=== PATIENT | female | born 1950 | race Caucasian/White ===

== ENCOUNTER → 2018-01-26 07:54 | Outpatient (CLI) | payer MEDICARE, OTHER, SELFPAY ==
[2018-01-26 10:14] LABS: Hemoglobin A1c 6.8 % (4.2-6.3)
== END ==
PROVIDERS: Family Provider Family Medicine; PCP Family Medicine; Visit Provider Family Medicine
DX: E11.9 Type 2 diabetes mellitus without complications (principal)
CPT/HCPCS: 36415; 83036

== ENCOUNTER → 2019-01-19 10:58 | Outpatient (CLI) | payer MEDICARE, OTHER, SELFPAY ==
[2019-01-19 10:30] VITALS: BMI 31.5
[2019-01-19 12:50] LABS: ALB/GLOB Ratio 0.9 RATIO (0.9-2.4); AST(SGOT) 14 U/L (15-37); Alanine Aminotransfer ALT/SGPT 19 U/L (13-56); Albumin, Serum 3.6 g/dL (3.2-5.0); Alkaline Phosphatase 119 U/L (45-117); Anion Gap 8 (5-15); BUN 23 mg/dL (7-18); BUN/Creat Ratio 19.5 RATIO (10-20); Calcium,Total 9.3 mg/dL (8.5-10.1); Chloride 104 mmol/L (98-107); Cholesterol 129 mg/dL (200); Creatinine, Serum 1.18 mg/dL (0.55-1.02); EST Glomerular Filtration Rate 48 mL/min (>60); Est Glom Filt Rate - Afr Amer 58 mL/min (>60); Globulin 3.8 g/dL (2.2-4.2); Glucose 155 mg/dL (74-106); High Density Lipoprotein 42 mg/dL; Protein, Total 7.4 g/dL (6.4-8.2); Sodium Level 139 mmol/L (136-145); Triglycerides 166 mg/dL; Very Low Density Lipoprotein 33 mg/dL (5-40)
== END ==
PROVIDERS: PCP Family Medicine; Visit Provider Family Medicine
DX: I10 Essential (primary) hypertension (principal)
CPT/HCPCS: 36415; 80053; 80061

== ENCOUNTER → 2020-02-25 10:43 | Outpatient (CLI) | payer MEDICARE, OTHER, SELFPAY ==
[2020-02-25 10:12] VITALS: BMI 31.5
[2020-02-25 12:49] LABS: AST(SGOT) 14 U/L (15-37); Alanine Aminotransfer ALT/SGPT 23 U/L (13-56); Alkaline Phosphatase 110 U/L (45-117); Anion Gap 6 (5-15); BUN 18 mg/dL (7-18); BUN/Creat Ratio 15.7 RATIO (10-20); Calcium,Total 9.1 mg/dL (8.5-10.1); Chloride 105 mmol/L (98-107); Cholesterol 161 mg/dL (200); Creatinine, Serum 1.15 mg/dL (0.55-1.02); EST Glomerular Filtration Rate 49 mL/min (>60); Est Glom Filt Rate - Afr Amer 60 mL/min (>60); Globulin 3.9 g/dL (2.2-4.2); Glucose 165 mg/dL (74-106); High Density Lipoprotein 45 mg/dL; Potassium 3.9 mmol/L (3.5-5.1); Protein, Total 7.9 g/dL (6.4-8.2); Sodium Level 137 mmol/L (136-145); Triglycerides 235 mg/dL; Very Low Density Lipoprotein 47 mg/dL (5-40)
[2020-02-25 13:18] LABS: Microalbumin,Random Urine 10.1 mg/L (NO RANGE EST.); Microalbumin:Creatinine Ratio 11.7 mg/g CRE (<30 mg/g CRE)
== END ==
PROVIDERS: PCP Family Medicine; Referring Provider Family Medicine; Visit Provider Family Medicine
DX: E78.5 Hyperlipidemia, unspecified (principal); E11.9 Type 2 diabetes mellitus without complications
CPT/HCPCS: 36415; 80053; 80061; 82043; 82570

== ENCOUNTER → 2021-02-21 11:13 | Outpatient (CLI) | payer MEDICARE, OTHER, SELFPAY ==
[2021-02-21 10:54] VITALS: BMI 31.5
[2021-02-21 12:45] LABS: AST(SGOT) 9 U/L (15-37); Alanine Aminotransfer ALT/SGPT 24 U/L (13-56); Albumin, Serum 3.8 g/dL (3.2-5.0); Alkaline Phosphatase 90 U/L (45-117); Anion Gap 6 (5-15); BUN 24 mg/dL (7-18); BUN/Creat Ratio 21.8 RATIO (10-20); Calcium,Total 9.1 mg/dL (8.5-10.1); Chloride 105 mmol/L (98-107); Cholesterol 139 mg/dL (200); EST Glomerular Filtration Rate 52 mL/min (>60); Est Glom Filt Rate - Afr Amer 63 mL/min (>60); Glucose 148 mg/dL (74-106); High Density Lipoprotein 48 mg/dL; Potassium 3.9 mmol/L (3.5-5.1); Protein, Total 7.8 g/dL (6.4-8.2); Sodium Level 137 mmol/L (136-145); Triglycerides 158 mg/dL; Very Low Density Lipoprotein 32 mg/dL (5-40)
[2021-02-21 12:48] LABS: Microalbumin,Random Urine 8.3 mg/L (NO RANGE EST.); Microalbumin:Creatinine Ratio 10.8 mg/g CRE (<30 mg/g CRE)
== END ==
PROVIDERS: PCP Family Medicine; Referring Provider Family Medicine; Visit Provider Family Medicine
DX: E11.9 Type 2 diabetes mellitus without complications (principal)
CPT/HCPCS: 36415; 80053; 80061; 82043; 82570

== ENCOUNTER → 2022-06-04 | Outpatient (CLI) | payer MEDICARE, OTHER, SELFPAY ==
[2022-06-04 13:32] LABS: AST(SGOT) 18 U/L (15-37); Alanine Aminotransfer ALT/SGPT 32 U/L (13-56); Albumin, Serum 3.8 g/dL (3.2-5.0); Alkaline Phosphatase 98 U/L (45-117); Anion Gap 7 (5-15); BUN 26 mg/dL (7-18); BUN/Creat Ratio 23.6 RATIO (10-20); Chloride 106 mmol/L (98-107); EST Glomerular Filtration Rate 52 mL/min (>60); Est Glom Filt Rate - Afr Amer 63 mL/min (>60); Glucose 142 mg/dL (74-106); Potassium 3.7 mmol/L (3.5-5.1); Protein, Total 7.8 g/dL (6.4-8.2); Sodium Level 140 mmol/L (136-145)
== END | disposition home or self-care (01) ==
LOC: BIMLAB 11:02
PROVIDERS: PCP Family Medicine; Visit Provider Family Medicine
DX: I10 Essential (primary) hypertension (principal)
CPT/HCPCS: 36415; 80053

== ENCOUNTER → 2023-06-11 | Outpatient (CLI) | payer MEDICARE, OTHER, SELFPAY ==
[2023-06-11 12:19] LABS: Absolute Lymphocyte Count 1.53 X10^3/uL (0.83-4.51); Absolute Neutrophil Count 4.9 X10^3/uL (2.0-7.7); Basophil# 0.09 X10^3/uL; Basophil% 1.2 % (0-1); Eosinophil# 0.15 X10^3/uL; Eosinophils% 2.1 % (0-5); Hematocrit 45.3 % (37-47); Hemoglobin 14.5 g/dL (12.0-15.0); Lymphocyte # 1.53 X10^3/ul (0.83-4.51); Lymphocyte % 20.9 % (19-41); Mean Corpuscular Hgb 31.5 pg (27.0-32.0); Mean Corpuscular Volume 98.5 fL (81-99); Mean Platelet Vol. 9.4 fl (6.2-12.0); Monocyte# 0.62 X10^3/uL; Monocyte% 8.5 % (0-10); NRBC Flagged by Analyzer 0 % (0-5); Neutrophil # 4.88 X10^3/uL (2.7-7.7); Neutrophil % 66.8 % (47-70); Platelet Count 353 K/mm3 (150-450); RBC Distribution Width CV 14.1 % (11.6-14.6); RBC Distribution Width SD 50.9 fl (35.1-43.9); White Blood Count 7.3 K/mm3 (4.4-11.0)
[2023-06-11 12:40] LABS: ALB/GLOB Ratio 0.9 RATIO (0.9-2.4); AST(SGOT) 16 U/L (15-37); Alanine Aminotransfer ALT/SGPT 28 U/L (13-56); Albumin, Serum 3.8 g/dL (3.2-5.0); Alkaline Phosphatase 100 U/L (45-117); Anion Gap 7 (5-15); BUN 31 mg/dL (7-18); BUN/Creat Ratio 25.2 RATIO (10-20); Calcium,Total 9.7 mg/dL (8.5-10.1); Chloride 105 mmol/L (98-107); Cholesterol 145 mg/dL (200); Creatinine, Serum 1.23 mg/dL (0.55-1.02); EST Glomerular Filtration Rate 45 mL/min (>60); Est Glom Filt Rate - Afr Amer 55 mL/min (>60); Globulin 4.3 g/dL (2.2-4.2); Glucose 156 mg/dL (74-106); High Density Lipoprotein 57 mg/dL; Potassium 4.2 mmol/L (3.5-5.1); Protein, Total 8.1 g/dL (6.4-8.2); Sodium Level 139 mmol/L (136-145); Triglycerides 179 mg/dL; Very Low Density Lipoprotein 36 mg/dL (5-40)
== END | disposition home or self-care (01) ==
LOC: BIMLAB 11:21
PROVIDERS: PCP Family Medicine; Referring Provider Family Medicine; Visit Provider Family Medicine
DX: I10 Essential (primary) hypertension (principal); E11.9 Type 2 diabetes mellitus without complications
CPT/HCPCS: 36415; 80053; 80061; 85025

== ENCOUNTER → 2024-02-17 | Outpatient (CLI) | payer MEDICARE, OTHER, SELFPAY | END | disposition home or self-care (01) | LOC: LABSPEC 13:41 | PROVIDERS: PCP Family Medicine; Referring Provider Nurse Practitioner; Visit Provider Nurse Practitioner | DX: L72.9 Follicular cyst of the skin and subcutaneous tissue, unspecified (principal) | CPT/HCPCS: 87070; 87077; 87186; 87205 ==

== ENCOUNTER 2024-03-03 09:30 | Outpatient (RCR) | payer MEDICARE, OTHER, SELFPAY ==
[2024-02-25 09:10] VITALS: BP 141/90; PULSE 95; RESP 18; TEMP 36.3
--- NOTE | 2024-02-25 12:00 | HP.PCM_ITS ---
History of Present Illness Date of Service: 02/25/24 Chief Complaint: Follow-up on an open wound on upper mid back History of Wound: 73-year-old white female that had a bump on her back that exploded open on her and she immediately got into her family doctor. The nurse practitioner cleaned it out and has put her on oral antibiotics and suggested she be seen at the wound center. [facility] Medical History Cataract Hyperlipidemia Hypertension Diabetes Home Medications ?Medication ?Instructions ?Recorded ?Last Taken ?Type metformin 500 mg tablet,extended 500 mg PO QDAY #90 tabs 06/11/23 Unknown Rx release 24 hr aspirin 81 mg tablet,delayed 81 mg PO QDAY #90 tabs 08/07/23 Unknown Rx release (Adult Low Dose Aspirin) amlodipine 5 mg tablet 5 mg PO QDAY #90 tabs 12/10/23 Unknown Rx lisinopril 20 1 tab PO QDAY #90 tabs 12/10/23 Unknown Rx mg-hydrochlorothiazide 12.5 mg tablet doxycycline hyclate 100 mg capsule 100 mg PO BID #14 caps 02/17/24 Unknown Rx atorvastatin 20 mg tablet (Lipitor) 20 mg PO QDAY #90 tabs 02/18/24 Unknown Rx Allergy/AdvReac Type Severity Reaction Status Date / Time adhesive tape (adhesives - Allergy Intermediate Rash Verified 02/23/24 13:36 tape) Sulfa (Sulfonamide Allergy Intermediate Hives Verified 02/23/24 13:36 Antibiotics) Family History Father Melanoma Surgical History History of hernia surgery Social History Smoking Status: Never smoker alcohol intake: never substance use type: does not use what type of physical activity do you participate in: none ROS ROS Narrative Patient states her blood sugars are good her hemoglobin A1c is at 6.2 she has just been covering the dressing with a gauze dressing and had a terrible reaction to the tape. Constitutional Constitutional: Reports systems reviewed and no addt'l complaints, except as documented Eyes Eyes: Reports systems reviewed and no addt'l complaints, except as documented ENT HEENT: Reports systems reviewed and no addt'l complaints, except as documented Cardiovascular Cardiovascular: Reports systems reviewed and no addt'l complaints, except as documented Respiratory/Chest Respiratory/Chest: Reports systems reviewed and no addt'l complaints, except as documented Gastrointestinal Gastrointestinal: Reports systems reviewed and no addt'l complaints, except as documented Genitourinary Genitourinary: Reports systems reviewed and no addt'l complaints, except as documented Musculoskeletal Musculoskeletal: Reports systems reviewed and no addt'l complaints, except as documented Integumentary Integumentary: Reports rash, wounds and other Details: Open wound contralateral to the thoracic spine on the right with a very well demarcated Area around the wound from tape and a perfect square formation. Neurologic Neurologic: Reports systems reviewed and no addt'l complaints, except as documented Psychiatric Psychiatric: Reports systems reviewed and no addt'l complaints, except as documented Endocrine Endocrinology: Reports systems reviewed and no addt'l complaints, except as documented Hematologic/Lymphatic Hematologic/Lymphatic: Reports systems reviewed and no addt'l complaints, except as documented Allergic/Immunologic Allergic/Immunologic: Reports systems reviewed and no addt'l complaints, except as documented Vital Signs Vital Signs Vital Signs: 02/25/24 09:10 Temperature 97.3 F L Temperature Source Temporal Pulse Rate 95 Respiratory Rate 18 Blood Pressure 141/90 H Blood Pressure Mean 107 Blood Pressure Source Monitor Blood Pressure Position Sitting Blood Pressure Location Right Arm Physical Exam Const oriented x3 General Appearance: cooperative Exam Limitations: no limitations HEENT normocephalic Eyes General Eye: normal appearance of both eyes Neck full ROM Resp normal respiratory effort Effort and Inspection: able to speak in complete sentences Auscultation: clear to auscultation bilaterally Cardio regular rate and regular rhythm Palpation: normal PMI Rate: regular rate Rhythm: regular rhythm GI Palpation: soft and no hepatosplenomegaly external exam normal Back/Spine Cervical Spine: cervical ROM normal Thoracic Spine / Upper Back: normal to inspection Lumbar Spine / Lower Back: normal to inspection Skin Skin Narrative: Square erythematous area around the wound from tape allergy. Open whole with positive depth and undermining towards the spine on the sebaceous cyst. Neuro oriented x3 Psych Appearance: grossly normal Speech: normal speech Thought Content: normal thought content Judgement: judgement good Debridement Note Debridement Note Wound debrided: Sebaceous cyst open wound Type of Debridement: Excisional debridement Anesthesia Used: 5% Lidocaine Gel Depth: Down to and including healthy tissue and in the subcutaneous layer Percentage of wound debrided: 100 Instrument Used: 5mm curette Severity: Fat Layer Exposed Amount of bleeding with debridement: Mild Bleeding Controlled with: Compression and gauze Patient tolerated procedure: Patient tolerated procedure well Post-Debridement Measurements and Additional Note: Post-Debridement Measurements/Treatment - Nurse 1 - General Ulcer Assessment Start: 02/25/24 09:09 Freq: Status: Active Protocol: INDIO Activity Type Activity Date Activity User E-sign Co-sign Detail Recorded Client Recorded Date Recorded By Document 02/25/24 09:10 [id number] 02/25/24 09:20 PA 02/25/24 09:10 - Today's Visit Information Type of service Initial Visit Arrival Mode Ambulatory Patient Identification Verified (Name & Yes ) Safety Precautions Fall Prevention Vital Signs Temperature (97.8 F-99.1 F) 97.3 F L Temperature Source Temporal Pulse Rate (60-100) 95 Pulse Location Monitor Respiratory Rate (12-18) 18 Respiratory rate source Observation Blood Pressure (90/60-120/80) 141/90 H Blood Pressure Mean 107 Source Monitor Position Sitting Blood Pressure Location Right Arm History Since Last Visit- (Skip if this is Patient's initial visit) Left Footwear Regular Shoe Right Footwear Regular Shoe Pain Scale: 0-10 Numeric Is Patient Pain Free? Yes [facility] Nurse 1 - General Ulcer Measurement Start: 02/25/24 09:09 Freq: Status: Active Protocol: Activity Type Activity Date Activity User E-sign Co-sign Detail Recorded Client Recorded Date Recorded By Document 02/25/24 09:10 [id number] 02/25/24 09:20 PA 02/25/24 09:10 Wound Center Nurse 1 #1 Right med back -Current Size (cm) - Length 1.2 -Current Size (cm) - Width 0.9 -Current Size (cm) - Depth 1.0 -Total Square Cm 1.08 -Date of Last Picture (Recall this 02/25/24 field) -Photo Taken Yes -Undermining/Tunneling Yes -Undermining/Tunneling Starts (O'clock 11 ) -Undermining/Tunneling Ends (O'clock) 11 -Maximum Distance (cm) 3.2 -Exudate Amt Medium -Exudate Type Serosanguineous -Wound Margin Thickened & Rolled Under -Granulation Amt Large (67-100%) -Granulation Quality Pale,[place] -Necrosis Amt Small (1-33%) -Necrotic Tissue Type Adherent Slough -Texture (Concepcion-wound Skin Appearance) Assessed -Moisture (Concepcion-wound Skin Appearance) Assessed -Color (Concepcion-wound Skin Appearance) Assessed -Temperature (Concepcion-wound Skin No Abnormality Appearance) (Pt Warm) -Tenderness on Palpation (Concepcion-wound No Skin Appearance) -Ulcer Cleansing Soap and Water -Foul Odor after Cleansing No -Anesthetic Used 5% Lidocaine Gel Lower Limb Edema Present NA WC - Nurse 2 - General Ulcer CM Notes Start: 02/25/24 09:09 Freq: Status: Active Protocol: Activity Type Activity Date Activity User E-sign Co-sign Detail Recorded Client Recorded Date Recorded By Document 02/25/24 09:27 [facility] [email or web address] 02/25/24 09:36 [facility] 02/25/24 09:27 Wound Center Nurse 2 #1 Right med back -Time 09:28 -Correct Patient Yes -Correct Side, Site, Position Yes -Correct Procedure Yes -Procedure Performed Yes -Type of Procedure Debridement -Clinical Debridement Subcutaneous -Tissue Removed Subcutaneous -Post Debridement (cm) - Length 1.3 -Post Debridement (cm) - Width 0.7 -Post Debridement (cm) - Depth 0.9 -Total Square (Post) (cm) 0.91 -Area of Debridement (cm) - Length 1.3 -Area of Debridement (cm) - Width 0.7 -Total Square (Area) (cm) 0.91 -Tunneling No -Undermining/Tunneling Yes -Undermining/Tunneling Starts (O'clock 9 ) -Undermining/Tunneling Ends (O'clock) 12 -Maximum Distance (cm) 3 -Circular Undermining No -Wound/Ulcer Outcome Not Healed -Ulcer Cleansing Rinsed/ Irrigated with Saline -Foul Odor after Cleansing No -Bioengineered Tissue No -Bleeding Controlled with Pressure -Treatment Response Procedure Tolerated Well -Debridement - Subq, 1st 20sq cm Yes Pain Scale: 0-10 Numeric Is Patient Pain Free? Yes NAILA - Nurse 3 - General Ulcer D/C NN Start: 02/25/24 09:09 Freq: Status: Active Protocol: Activity Type Activity Date Activity User E-sign Co-sign Detail Recorded Client Recorded Date Recorded By Document 02/25/24 09:57 DL [email or web address] 02/25/24 09:59 DL 02/25/24 09:57 [facility] Nurse 3 #1 Right med back -Ulcer Cleansing Rinsed/ Irrigated with Saline -Foul Odor after Cleansing No -Primary Dressing Applied Mepilex Border, Nugauze, Iodoform 1in -Mepilex Border 1 -Nugauze, Iodoform 1in 1 Treatment Response Procedure Tolerated Well Pain Scale: 0-10 Numeric Is Patient Pain Free? Yes WC - Visit Discharge Discharge Condition Stable Ambulatory Status Ambulatory Transportation Private Auto Notes: HH referal Assessment/Plan Assessment/Plan (1) Wound of right side of back: CODE(S): S21.201A - Unspecified open wound of right back wall of thorax without penetration into thoracic cavity, initial encounter QUALIFIERS: Encounter type: initial encounter Qualified Code(s): S21.201A - Unspecified open wound of right back wall of thorax without penetration into thoracic cavity, initial encounter PLAN: Wash as usual and scrub the back area. Then wash again when she comes out pat dry pack with half-inch iodoform gauze and an absorbent XL foam dressing over top Patient is going to try to find a nurse friend to do the dressings daily otherwise we will hire home health to do at least 2 times a week we will do the third time a week and she can have of her friend just do 2 days a week. Patient is to get back to us (2) Infected sebaceous cyst of skin: CODE(S): L72.3 - Sebaceous cyst; L08.9 - Local infection of the skin and subcutaneous tissue, unspecified (3) Nonhealing nonsurgical wound: CODE(S): T14.8XXA - Other injury of unspecified body region, initial encounter
[2024-03-03 09:50] VITALS: BP 142/93; PULSE 98; RESP 18; TEMP 36.2
--- NOTE | 2024-03-03 10:50 | WC ---
PHOTO 02/25/24 (I) RIGHT BACK
--- NOTE | 2024-03-03 11:58 | PCM.WC.PN ---
History of Present Illness Date of Service: 03/03/24 Chief Complaint: Follow-up on an open wound on upper mid back History of Wound: 73-year-old white female that had a bump on her back that exploded open on her and she immediately got into her family doctor. The nurse practitioner cleaned it out and has put her on oral antibiotics and suggested she be seen at the wound center. Progress of Wound: Patient has been packing with 1 inch iodoform gauze because at all she had. The measurements are about the same but cannot switch her up and put her on Aquacel extra strips to be cut and packed and they are moisturized with water. Clean doing well still has a tunneling area underneath the skin. No sign of infection doing well. She does have a nurse that is doing the dressings every day for her. Subjective Subjective Patient is tolerating treatments well and is doing fine with no concerns Objective Data Objective Data The area looks clean no sign of infection gets to hardly any discharge at this point. Will change up on the product and were going to switch her to Aquacel extra strips to pack in there. Vital Signs: Vital Signs Temp Pulse Resp BP 97.2 F L 98 18 142/93 H 03/03/24 09:50 03/03/24 09:50 03/03/24 09:50 03/03/24 09:50 Lab / Micro Data Attestation: I reviewed the patient's lab results. Physical Exam Const oriented x3 General Appearance: cooperative Exam Limitations: no limitations HEENT normocephalic Eyes General Eye: normal appearance of both eyes Neck full ROM Resp normal respiratory effort Effort and Inspection: able to speak in complete sentences Auscultation: clear to auscultation bilaterally Cardio regular rate and regular rhythm Palpation: normal PMI Rate: regular rate Rhythm: regular rhythm GI Palpation: soft and no hepatosplenomegaly external exam normal Back/Spine Cervical Spine: cervical ROM normal Thoracic Spine / Upper Back: normal to inspection Lumbar Spine / Lower Back: normal to inspection Skin Skin Narrative: Square erythematous area around the wound from tape allergy. Open whole with positive depth and undermining towards the spine on the sebaceous cyst. Neuro oriented x3 Psych Appearance: grossly normal Speech: normal speech Thought Content: normal thought content Judgement: judgement good Debridement Note Debridement Note Wound debrided: Sebaceous cyst open wound Type of Debridement: Excisional debridement Anesthesia Used: 5% Lidocaine Gel Depth: Down to and including healthy tissue and in the subcutaneous layer Percentage of wound debrided: 100 Instrument Used: 5mm curette Severity: Fat Layer Exposed Amount of bleeding with debridement: Mild Bleeding Controlled with: Compression and gauze Patient tolerated procedure: Patient tolerated procedure well Post-Debridement Measurements and Additional Note: Post-Debridement Measurements/Treatment NAILA - Nurse 1 - General Ulcer Assessment Start: 02/25/24 09:09 Freq: Status: Active Protocol: INDIO Activity Type Activity Date Activity User E-sign Co-sign Detail Recorded Client Recorded Date Recorded By Document 02/25/24 09:10 MT [id number] 02/25/24 09:20 MT Document 03/03/24 09:50 RB wound 03/03/24 09:52 RB 02/25/24 03/03/24 09:10 09:50 WC - Today's Visit Information Type of service Initial Visit Follow-up Visit (Physician/VALVE REPAIRER RECLAMATION ) Arrival Mode Ambulatory Ambulatory,Cane Transfer Assistance None Patient Identification Verified (Name & Yes Yes ) Patient Requires Transmission-Based No Precautions Safety Precautions Fall Prevention Vital Signs Temperature (97.8 F-99.1 F) 97.3 F L 97.2 F L Temperature Source Temporal Temporal Pulse Rate (60-100) 95 98 Pulse Location Monitor Monitor Respiratory Rate (12-18) 18 18 Respiratory rate source Observation Observation Blood Pressure (90/60-120/80) 141/90 H 142/93 H Blood Pressure Mean (mm Hg) 107 109 Source Monitor Monitor Position Sitting Semi-Fowlers Blood Pressure Location Right Arm Left Arm History Since Last Visit- (Skip if this is Patient's initial visit) Have you changed medications since your No last visit? Any new allergies or adverse reactions No Had a fall/change in ADL's that may No increase risk of falls Signs or symptoms of abuse and/or No neglect since last visit Have you been in the hospital since your No last visit? Has dressing in place as prescribed Yes Has compression in place as prescribed No Has offloadiing in place as prescribed No Experienced any changes in pain level or No management Left Footwear Regular Shoe Right Footwear Regular Shoe Pain Scale: 0-10 Numeric Is Patient Pain Free? Yes Yes NAILA [facility] Nurse 1 - General Ulcer Measurement Start: 02/25/24 09:09 Freq: Status: Active Protocol: Activity Type Activity Date Activity User E-sign Co-sign Detail Recorded Client Recorded Date Recorded By Document 02/25/24 09:10 MT [id number] 02/25/24 09:20 MT Document 03/03/24 09:50 RB wound 03/03/24 09:52 RB 02/25/24 03/03/24 09:10 09:50 Wound Center Nurse 1 #1 Right mid back -Combined with other wound No -Current Size (cm) - Length 1.2 0.8 -Current Size (cm) - Width 0.9 0.7 -Current Size (cm) - Depth 1.0 0.4 -Total Square Cm 1.08 0.56 -Date of Last Picture (Recall this 02/25/24 field) -Photo Taken Yes -Tunneling Yes -Tunneling Position (O'clock) 10 -Tunneling Distance (cm) 3.3 -Undermining/Tunneling Yes No -Undermining/Tunneling Starts (O'clock 11 ) -Undermining/Tunneling Ends (O'clock) 11 -Maximum Distance (cm) 3.2 -Circular Undermining No -Exudate Amt Medium -Exudate Type Serosanguineous -Wound Margin Thickened & Rolled Under -Granulation Amt Large (67-100%) Medium (34-66%) -Granulation Quality Pale,[place] -Slough/Fibrin Yes -Necrosis Amt Small (1-33%) Medium (34-66%) -Necrotic Tissue Type Adherent Slough Adherent Slough -Structure Exposed N/A -Texture (Concepcion-wound Skin Appearance) Assessed Assessed, Scarring -Moisture (Concepcion-wound Skin Appearance) Assessed Assessed -Color (Concepcion-wound Skin Appearance) Assessed Assessed -Temperature (Concepcion-wound Skin No Abnormality No Abnormality Appearance) (Pt Warm) (Pt Warm) -Tenderness on Palpation (Concepcion-wound No No Skin Appearance) -Ulcer Cleansing Soap and Water Wound Cleanser -Foul Odor after Cleansing No No -Anesthetic Used 5% Lidocaine 5% Lidocaine Gel Gel Lower Limb Edema Present NA WC - Nurse 2 - General Ulcer CM Notes Start: 02/25/24 09:09 Freq: Status: Active Protocol: Activity Type Activity Date Activity User E-sign Co-sign Detail Recorded Client Recorded Date Recorded By Document 02/25/24 09:27 [facility] [id number] 02/25/24 09:36 BMF Document 03/03/24 10:04 [facility] ..25.7 03/03/24 10:10 [facility] 02/25/24 03/03/24 09:27 10:04 Wound Center Nurse 2 #1 Right mid back -Time 09:28 10:04 -Correct Patient Yes Yes -Correct Side, Site, Position Yes Yes -Correct Procedure Yes Yes -Procedure Performed Yes Yes -Type of Procedure Debridement Debridement -Clinical Debridement Subcutaneous Subcutaneous -Tissue Removed Subcutaneous Subcutaneous -Post Debridement (cm) - Length 1.3 1.0 -Post Debridement (cm) - Width 0.7 0.7 -Post Debridement (cm) - Depth 0.9 0.5 -Total Square (Post) (cm) 0.91 0.70 -Area of Debridement (cm) - Length 1.3 1.0 -Area of Debridement (cm) - Width 0.7 0.7 -Total Square (Area) (cm) 0.91 0.70 -Tunneling No -Undermining/Tunneling Yes Yes -Undermining/Tunneling Starts (O'clock 9 9 ) -Undermining/Tunneling Ends (O'clock) 12 11 -Maximum Distance (cm) 3 2.7 -Circular Undermining No No -Wound/Ulcer Outcome Not Healed Not Healed -Ulcer Cleansing Rinsed/ Rinsed/ Irrigated with Irrigated with Saline Saline -Foul Odor after Cleansing No No -Bioengineered Tissue No No -Bleeding Controlled with Pressure Pressure -Treatment Response Procedure Procedure Tolerated Well Tolerated Well -Debridement - Subq, 1st 20sq cm Yes Yes Pain Scale: 0-10 Numeric Is Patient Pain Free? Yes Yes - Nurse 3 - General Ulcer D/C NN Start: 02/25/24 09:09 Freq: Status: Active Protocol: Activity Type Activity Date Activity User E-sign Co-sign Detail Recorded Client Recorded Date Recorded By Document 02/25/24 09:57 DL [email or web address] 02/25/24 09:59 DL Document 03/03/24 11:16 RB wound 03/03/24 11:17 RB 02/25/24 03/03/24 09:57 11:16 Wound Care Center Nurse 3 #1 Right mid back -Ulcer Cleansing Rinsed/ Irrigated with Saline -Foul Odor after Cleansing No -Primary Dressing Applied Mepilex Border, Aquacel Extra, Nugauze, Mepilex Border Iodoform 1in -Aquacel Extra 1 -Mepilex Border 1 1 -Nugauze, Iodoform 1in 1 Treatment Response Procedure Procedure Tolerated Well Tolerated Well Pain Scale: 0-10 Numeric Is Patient Pain Free? Yes Yes WC - Visit Discharge Discharge Condition Stable Stable Ambulatory Status Ambulatory Ambulatory Transportation Private Auto Private Auto Medication Reconcilliation completed & No provided to patient/care provider Clinical Summary of Care Provided Yes Notes: referal Assessment/Plan Assessment/Plan (1) Wound of right side of back: CODE(S): S21.201A - Unspecified open wound of right back wall of thorax without penetration into thoracic cavity, initial encounter QUALIFIERS: Encounter type: initial encounter Qualified Code(s): S21.201A - Unspecified open wound of right back wall of thorax without penetration into thoracic cavity, initial encounter PLAN: Wash as usual and scrub the back area. Then wash again when she comes out pat dry pack with half-inch Aquacel extra gauze and an absorbent XL foam dressing over top nurse friend to do the dressings daily Follow-up 1 week (2) Infected sebaceous cyst of skin: CODE(S): L72.3 - Sebaceous cyst; L08.9 - Local infection of the skin and subcutaneous tissue, unspecified (3) Nonhealing nonsurgical wound: CODE(S): T14.8XXA - Other injury of unspecified body region, initial encounter
== END 2024-03-03 23:59 | disposition home or self-care (01) ==
LOC: WC 09:30
PROVIDERS: PCP Family Medicine; Referring Provider Nurse Practitioner; Visit Provider Nurse Practitioner
DX: S21.201A Unspecified open wound of right back wall of thorax without penetration into thoracic cavity, initial encounter (principal); L98.422 Non-pressure chronic ulcer of back with fat layer exposed; E11.9 Type 2 diabetes mellitus without complications; Z79.82 Long term (current) use of aspirin; E78.5 Hyperlipidemia, unspecified; I10 Essential (primary) hypertension; Z79.899 Other long term (current) drug therapy; Z79.84 Long term (current) use of oral hypoglycemic drugs; L72.3 Sebaceous cyst; T14.8XXA Other injury of unspecified body region, initial encounter; Y84.9 Medical procedure, unspecified as the cause of abnormal reaction of the patient, or of later complication, without mention of misadventure at the time of the procedure
CPT/HCPCS: 11042; 99213; G0463

== ENCOUNTER 2024-03-24 09:45 | Outpatient (RCR) | payer MEDICARE, OTHER, SELFPAY ==
[2024-03-04 00:54] VITALS: BP 142/93; PULSE 98; RESP 18; TEMP 36.2
[2024-03-10 10:54] VITALS: BP 147/85; PULSE 78; RESP 18; TEMP 36.5
--- NOTE | 2024-03-10 12:59 | PCM.WC.PN ---
History of Present Illness Date of Service: 03/10/24 Chief Complaint: Follow-up on an open wound on upper mid back History of Wound: 73-year-old white female that had a bump on her back that exploded open on her and she immediately got into her family doctor. The nurse practitioner cleaned it out and has put her on oral antibiotics and suggested she be seen at the wound center. Progress of Wound: So the nurse from that was helping her could not do it for couple of days and she had a standing that was not packing it good enough so the wound is drained a lot of pus this time and increased in size and the undermining. Subjective Subjective Patient is agreeable to plan Objective Data Objective Data Discussed with the nurse it is going to be doing the dressing changes to pack better maybe mcfp through moisturize with water to activated and then repack again with more Aquacel extra. We did obtain cultures we will call with the results Vital Signs: Vital Signs Temp Pulse Resp BP 97.7 F L 78 18 147/85 H 03/10/24 10:54 03/10/24 10:54 03/10/24 10:54 03/10/24 10:54 Lab / Micro Data Attestation: I reviewed the patient's lab results. Physical Exam Const oriented x3 General Appearance: cooperative Exam Limitations: no limitations HEENT normocephalic Eyes General Eye: normal appearance of both eyes Neck full ROM Resp normal respiratory effort Effort and Inspection: able to speak in complete sentences Auscultation: clear to auscultation bilaterally Cardio regular rate and regular rhythm Palpation: normal PMI Rate: regular rate Rhythm: regular rhythm GI Palpation: soft and no hepatosplenomegaly external exam normal Back/Spine Cervical Spine: cervical ROM normal Thoracic Spine / Upper Back: normal to inspection Lumbar Spine / Lower Back: normal to inspection Skin Skin Narrative: Square erythematous area around the wound from tape allergy. Open whole with positive depth and undermining towards the spine on the sebaceous cyst. Neuro oriented x3 Psych Appearance: grossly normal Speech: normal speech Thought Content: normal thought content Judgement: judgement good Debridement Note Debridement Note Wound debrided: Sebaceous cyst open wound Type of Debridement: Excisional debridement Anesthesia Used: 5% Lidocaine Gel Depth: Down to and including healthy tissue and in the subcutaneous layer Percentage of wound debrided: 100 Instrument Used: 5mm curette Severity: Fat Layer Exposed Amount of bleeding with debridement: Mild Bleeding Controlled with: Compression and gauze Patient tolerated procedure: Patient tolerated procedure well Post-Debridement Measurements and Additional Note: Post-Debridement Measurements/Treatment - Nurse 1 - General Ulcer Assessment Start: 03/10/24 10:54 Freq: Status: Active Protocol: INDIO Activity Type Activity Date Activity User E-sign Co-sign Detail Recorded Client Recorded Date Recorded By Document 03/10/24 10:54 DL 10..25.7 03/10/24 11:03 DL 03/10/24 10:54 WC - Today's Visit Information Type of service Follow-up Visit (Physician/COIN BOX INSPECTOR ) Arrival Mode Ambulatory,Cane Transfer Assistance None Patient Identification Verified (Name & Yes ) Patient Requires Transmission-Based No Precautions Vital Signs Temperature (97.8 F-99.1 F) 97.7 F L Temperature Source Temporal Pulse Rate (60-100) 78 Pulse Location Monitor Respiratory Rate (12-18) 18 Respiratory rate source Observation Blood Pressure (90/60-120/80) 147/85 H Blood Pressure Mean (mm Hg) 105 Source Monitor History Since Last Visit- (Skip if this is Patient's initial visit) Have you changed medications since your No last visit? Any new allergies or adverse reactions No Had a fall/change in ADL's that may No increase risk of falls Signs or symptoms of abuse and/or No neglect since last visit Have you been in the hospital since your No last visit? Has dressing in place as prescribed Yes Has compression in place as prescribed N/A Has offloadiing in place as prescribed N/A Experienced any changes in pain level or No management Pain Scale: 0-10 Numeric Is Patient Pain Free? Yes - Nurse 1 - General Ulcer Measurement Start: 03/10/24 10:54 Freq: Status: Active Protocol: Activity Type Activity Date Activity User E-sign Co-sign Detail Recorded Client Recorded Date Recorded By Document 03/10/24 10:54 DL ..25.7 03/10/24 11:03 DL 03/10/24 10:54 Wound Center Nurse 1 #1 Right mid back -Current Size (cm) - Length 0.4 -Current Size (cm) - Width 0.3 -Current Size (cm) - Depth 0.2 -Total Square Cm 0.12 -Photo Taken Yes -Undermining/Tunneling Starts (O'clock 9 ) -Undermining/Tunneling Ends (O'clock) 11 -Maximum Distance (cm) 2.8 -Exudate Amt Medium -Exudate Type Serosanguineous -Wound Margin Distinct, Outline Attached -Granulation Amt Large (67-100%) -Granulation Quality Red -Necrosis Amt Small (1-33%) -Necrotic Tissue Type Adherent Slough -Structure Exposed N/A -Texture (Concepcion-wound Skin Appearance) Scarring -Moisture (Concepcion-wound Skin Appearance) No Abnormality -Color (Concepcion-wound Skin Appearance) No Abnormality -Temperature (Concepcion-wound Skin No Abnormality Appearance) (Pt Warm) -Ulcer Cleansing Soap and Water -Foul Odor after Cleansing No -Anesthetic Used 5% Lidocaine Gel WC - Nurse 2 - General Ulcer CM Notes Start: 03/10/24 10:54 Freq: Status: Active Protocol: Activity Type Activity Date Activity User E-sign Co-sign Detail Recorded Client Recorded Date Recorded By Document 03/10/24 11:22 DS 1 03/10/24 11:23 DS 03/10/24 11:22 Wound Center Nurse 2 -Time 11:15 -Correct Patient Yes -Correct Side, Site, Position Yes -Correct Procedure Yes -Procedure Performed Yes -Type of Procedure Debridement -Clinical Debridement Subcutaneous -Tissue Removed Subcutaneous -Post Debridement (cm) - Length 1.4 -Post Debridement (cm) - Width 0.3 -Post Debridement (cm) - Depth 3.0 -Total Square (Post) (cm) 0.42 -Area of Debridement (cm) - Length 1.4 -Area of Debridement (cm) - Width 0.3 -Total Square (Area) (cm) 0.42 -Tunneling No -Undermining/Tunneling Yes -Undermining/Tunneling Starts (O'clock 10 ) -Undermining/Tunneling Ends (O'clock) 11 -Maximum Distance (cm) 3.0 -Circular Undermining No -Wound/Ulcer Outcome Not Healed -Bleeding Controlled with Pressure -Treatment Response Procedure Tolerated Well -Debridement - Subq, 1st 20sq cm Yes Pain Scale: 0-10 Numeric Is Patient Pain Free? Yes NAILA - Nurse 3 - General Ulcer D/C NN Start: 03/10/24 10:54 Freq: Status: Active Protocol: Activity Type Activity Date Activity User E-sign Co-sign Detail Recorded Client Recorded Date Recorded By Document 03/10/24 12:02 RB woun 03/10/24 12:02 RB 03/10/24 12:02 Wound Care Center Nurse 3 #1 Right mid back -Ulcer Cleansing Rinsed/ Irrigated with Saline -Primary Dressing Applied Aquacel Extra, Mepilex Border -Aquacel Extra 1 -Mepilex Border 1 Treatment Response Procedure Tolerated Well Pain Scale: 0-10 Numeric Is Patient Pain Free? Yes Teaching: Wound Center Dressing Your Wound -Person Taught Patient -Teaching Method Discussion, Demonstration -Response to teaching Verbalize Understanding WC - Visit Discharge Discharge Condition Stable Ambulatory Status Ambulatory,Cane Transportation Private Auto Medication Reconcilliation completed & No provided to patient/care provider Clinical Summary of Care Provided Yes Assessment/Plan Assessment/Plan (1) Wound of right side of back: CODE(S): S21.201A - Unspecified open wound of right back wall of thorax without penetration into thoracic cavity, initial encounter QUALIFIERS: Encounter type: initial encounter Qualified Code(s): S21.201A - Unspecified open wound of right back wall of thorax without penetration into thoracic cavity, initial encounter PLAN: Wash as usual and scrub the back area. Then wash again when she comes out pat dry pack with half-inch Aquacel extra gauze and an absorbent XL foam dressing over top nurse friend to do the dressings daily Follow-up 1 week (2) Infected sebaceous cyst of skin: CODE(S): L72.3 - Sebaceous cyst; L08.9 - Local infection of the skin and subcutaneous tissue, unspecified (3) Nonhealing nonsurgical wound: CODE(S): T14.8XXA - Other injury of unspecified body region, initial encounter
--- NOTE | 2024-03-15 16:16 | WC ---
WOUND CULTURES REVIEWED PER YASIR MCCRAY. N.O. RECEIVED TO START CIPRO 500MG PO BID X 14 DAYS. ALLERGIES REVIEWED. PT UPDATED AND AGREEABLE. RX CALLED TO [facility] IN [place] PER PT PREFERENCE.
[2024-03-24 10:24] VITALS: BP 131/79; PULSE 107; RESP 18; TEMP 36.4
--- NOTE | 2024-03-24 12:49 | PCM.WC.PN ---
History of Present Illness Date of Service: 03/24/24 Chief Complaint: Follow-up on an open wound on upper mid back History of Wound: 73-year-old white female that had a bump on her back that exploded open on her and she immediately got into her family doctor. The nurse practitioner cleaned it out and has put her on oral antibiotics and suggested she be seen at the wound center. Progress of Wound: The right upper back undermining is smaller by half centimeter. Will continue using the Aquacel extra strips moistened underneath the skin packed in there. Patient is continued taking her Cipro although complains that it upsets her stomach terribly but will finish it. I told her it is making a difference and I reassurance was given no odor was noted the skin on the outside is all supple there is no redness Subjective Subjective Patient not doing well on the ciprofloxacin but will try taking it with food Objective Data Objective Data As stated above the measurements are smaller and the antibiotics are making a difference with healing. Vital Signs: Vital Signs Temp Pulse Resp BP 97.5 F L 107 H 18 131/79 H 03/24/24 10:24 03/24/24 10:24 03/24/24 10:24 03/24/24 10:24 Lab / Micro Data Micro: Microbiology 03/10/24 11:20 Wound - Back Gram Stain - Final 03/10/24 11:20 Wound - Back Wound Culture - Final Pseudomonas aeruginosa Proteus mirabilis 03/10/24 11:20 Wound - Back Anaerobic Culture - Final No anaerobic bacteria isolated. Physical Exam Const oriented x3 General Appearance: cooperative Exam Limitations: no limitations HEENT normocephalic Eyes General Eye: normal appearance of both eyes Neck full ROM Resp normal respiratory effort Effort and Inspection: able to speak in complete sentences Auscultation: clear to auscultation bilaterally Cardio regular rate and regular rhythm Palpation: normal PMI Rate: regular rate Rhythm: regular rhythm GI Palpation: soft and no hepatosplenomegaly external exam normal Back/Spine Cervical Spine: cervical ROM normal Thoracic Spine / Upper Back: normal to inspection Lumbar Spine / Lower Back: normal to inspection Skin Skin Narrative: Square erythematous area around the wound from tape allergy. Open whole with positive depth and undermining towards the spine on the sebaceous cyst. Neuro oriented x3 Psych Appearance: grossly normal Speech: normal speech Thought Content: normal thought content Judgement: judgement good Debridement Note Debridement Note Wound debrided: Sebaceous cyst open wound Type of Debridement: Excisional debridement Anesthesia Used: 5% Lidocaine Gel Depth: Down to and including healthy tissue and in the subcutaneous layer Percentage of wound debrided: 100 Instrument Used: 5mm curette Severity: Fat Layer Exposed Amount of bleeding with debridement: Mild Bleeding Controlled with: Compression and gauze Patient tolerated procedure: Patient tolerated procedure well Post-Debridement Measurements and Additional Note: Post-Debridement Measurements/Treatment NAILA - Nurse 1 - General Ulcer Assessment Start: 03/10/24 10:54 Freq: Status: Active Protocol: INDIO Activity Type Activity Date Activity User E-sign Co-sign Detail Recorded Client Recorded Date Recorded By Document 03/10/24 10:54 DL [id number] 03/10/24 11:03 DL Document 03/24/24 10:24 DL [id number] 03/24/24 10:26 DL 03/10/24 03/24/24 10:54 10:24 WC - Today's Visit Information Type of service Follow-up Visit Follow-up Visit (Physician/CAR WASH SUPERVISOR (Physician/CAR WASH SUPERVISOR ) ) Arrival Mode Ambulatory,Cane Ambulatory Transfer Assistance None None Patient Identification Verified (Name & Yes Yes ) Patient Requires Transmission-Based No No Precautions Vital Signs Temperature (97.8 F-99.1 F) 97.7 F L 97.5 F L Temperature Source Temporal Temporal Pulse Rate (60-100) 78 107 H Pulse Location Monitor Monitor Respiratory Rate (12-18) 18 18 Respiratory rate source Observation Observation Blood Pressure (90/60-120/80) 147/85 H 131/79 H Blood Pressure Mean (mm Hg) 105 96 Source Monitor Monitor Position Semi-Fowlers Blood Pressure Location Left Arm History Since Last Visit- (Skip if this is Patient's initial visit) Have you changed medications since your No No last visit? Any new allergies or adverse reactions No No Had a fall/change in ADL's that may No No increase risk of falls Signs or symptoms of abuse and/or No No neglect since last visit Have you been in the hospital since your No No last visit? Has dressing in place as prescribed Yes Yes Has compression in place as prescribed N/A No Has offloadiing in place as prescribed N/A No Experienced any changes in pain level or No No management Pain Scale: 0-10 Numeric Is Patient Pain Free? Yes Yes WC - Nurse 1 - General Ulcer Measurement Start: 03/10/24 10:54 Freq: Status: Active Protocol: Activity Type Activity Date Activity User E-sign Co-sign Detail Recorded Client Recorded Date Recorded By Document 03/10/24 10:54 DL [email or web address] 03/10/24 11:03 DL Document 03/24/24 10:24 DL [id number] 03/24/24 10:26 DL 03/10/24 03/24/24 10:54 10:24 Wound Center Nurse 1 #1 Right mid back -Combined with other wound No -Current Size (cm) - Length 0.4 0.7 -Current Size (cm) - Width 0.3 0.3 -Current Size (cm) - Depth 0.2 0.4 -Total Square Cm 0.12 0.21 -Photo Taken Yes Yes -Tunneling No -Undermining/Tunneling Yes -Undermining/Tunneling Starts (O'clock 9 10 ) -Undermining/Tunneling Ends (O'clock) 11 11 -Maximum Distance (cm) 2.8 2.8 -Circular Undermining Yes -Exudate Amt Medium Medium -Exudate Type Serosanguineous Serosanguineous -Wound Margin Distinct, Thickened & Outline Rolled Under Attached -Granulation Amt Large (67-100%) Medium (34-66%) -Granulation Quality Red [place] -Slough/Fibrin Yes -Necrosis Amt Small (1-33%) Medium (34-66%) -Necrotic Tissue Type Adherent Slough Adherent Slough -Structure Exposed N/A N/A -Texture (Concepcion-wound Skin Appearance) Scarring Assessed -Moisture (Concepcion-wound Skin Appearance) No Abnormality Assessed -Color (Concepcion-wound Skin Appearance) No Abnormality Assessed -Temperature (Concepcion-wound Skin No Abnormality No Abnormality Appearance) (Pt Warm) (Pt Warm) -Tenderness on Palpation (Concepcion-wound No Skin Appearance) -Ulcer Cleansing Soap and Water Wound Cleanser -Foul Odor after Cleansing No No -Anesthetic Used 5% Lidocaine 5% Lidocaine Gel Gel WC - Nurse 2 - General Ulcer CM Notes Start: 03/10/24 10:54 Freq: Status: Active Protocol: Activity Type Activity Date Activity User E-sign Co-sign Detail Recorded Client Recorded Date Recorded By Document 03/10/24 11:22 DS 1 03/10/24 11:23 DS Document 03/24/24 10:33 BM [id number] 03/24/24 10:38 BMF 03/10/24 03/24/24 11:22 10:33 Wound Center Nurse 2 #1 Right mid back -Time 11:15 10:33 -Correct Patient Yes Yes -Correct Side, Site, Position Yes Yes -Correct Procedure Yes Yes -Procedure Performed Yes Yes -Type of Procedure Debridement Debridement -Clinical Debridement Subcutaneous Subcutaneous -Tissue Removed Subcutaneous Subcutaneous -Post Debridement (cm) - Length 1.4 0.1 -Post Debridement (cm) - Width 0.3 1.7 -Post Debridement (cm) - Depth 3.0 0.2 -Total Square (Post) (cm) 0.42 0.17 -Area of Debridement (cm) - Length 1.4 0.1 -Area of Debridement (cm) - Width 0.3 1.7 -Total Square (Area) (cm) 0.42 0.17 -Tunneling No No -Undermining/Tunneling Yes Yes -Undermining/Tunneling Starts (O'clock 10 10 ) -Undermining/Tunneling Ends (O'clock) 11 11 -Maximum Distance (cm) 3.0 2.5 -Circular Undermining No No -Wound/Ulcer Outcome Not Healed Not Healed -Ulcer Cleansing Rinsed/ Irrigated with Saline -Foul Odor after Cleansing Yes, Due to Product Use -Bleeding Controlled with Pressure Pressure -Treatment Response Procedure Procedure Tolerated Well Tolerated Well -Debridement - Subq, 1st 20sq cm Yes Yes Pain Scale: 0-10 Numeric Is Patient Pain Free? Yes Yes WC - Nurse 3 - General Ulcer D/C NN Start: 03/10/24 10:54 Freq: Status: Active Protocol: Activity Type Activity Date Activity User E-sign Co-sign Detail Recorded Client Recorded Date Recorded By Document 03/10/24 12:02 RB woun 03/10/24 12:02 RB Document 03/24/24 10:55 RB [id number] 03/24/24 10:56 RB 03/10/24 03/24/24 12:02 10:55 Wound Care Center Nurse 3 #1 Right mid back -Ulcer Cleansing Rinsed/ Rinsed/ Irrigated with Irrigated with Saline Saline -Primary Dressing Applied Aquacel Extra, Aquacel Extra, Mepilex Border Mepilex Border -Aquacel Extra 1 1 -Mepilex Border 1 1 Treatment Response Procedure Procedure Tolerated Well Tolerated Well Pain Scale: 0-10 Numeric Is Patient Pain Free? Yes Yes Teaching: Wound Center Dressing Your Wound -Person Taught Patient -Teaching Method Discussion, Demonstration -Response to teaching Verbalize Understanding WC - Visit Discharge Discharge Condition Stable Stable Ambulatory Status Ambulatory,Cane Ambulatory Transportation Private Auto Private Auto Medication Reconcilliation completed & No No provided to patient/care provider Clinical Summary of Care Provided Yes Yes Assessment/Plan Assessment/Plan (1) Wound of right side of back: CODE(S): S21.201A - Unspecified open wound of right back wall of thorax without penetration into thoracic cavity, initial encounter QUALIFIERS: Encounter type: initial encounter Qualified Code(s): S21.201A - Unspecified open wound of right back wall of thorax without penetration into thoracic cavity, initial encounter PLAN: Wash as usual and scrub the back area. Then wash again when she comes out pat dry pack with half-inch Aquacel extra gauze moistened as applied and an absorbent XL foam dressing over top nurse friend to do the dressings daily Follow-up 1 week (2) Infected sebaceous cyst of skin: CODE(S): L72.3 - Sebaceous cyst; L08.9 - Local infection of the skin and subcutaneous tissue, unspecified (3) Nonhealing nonsurgical wound: CODE(S): T14.8XXA - Other injury of unspecified body region, initial encounter
--- NOTE | 2024-03-25 14:08 | WC ---
PHOTO 03/24/24 RIGHT MID BACK
== END 2024-04-03 23:59 | disposition home or self-care (01) ==
LOC: WC 09:45
PROVIDERS: PCP Family Medicine; Referring Provider Nurse Practitioner; Visit Provider Nurse Practitioner
DX: T81.89XA Other complications of procedures, not elsewhere classified, initial encounter (principal); L98.425 Non-pressure chronic ulcer of back with muscle involvement without evidence of necrosis; S21.201S Unspecified open wound of right back wall of thorax without penetration into thoracic cavity, sequela; L72.3 Sebaceous cyst; Y83.8 Other surgical procedures as the cause of abnormal reaction of the patient, or of later complication, without mention of misadventure at the time of the procedure; L08.9 Local infection of the skin and subcutaneous tissue, unspecified; Z79.2 Long term (current) use of antibiotics; Z79.82 Long term (current) use of aspirin; Z79.84 Long term (current) use of oral hypoglycemic drugs; Z79.899 Other long term (current) drug therapy
CPT/HCPCS: 11042; 87070; 87075; 87077; 87186; 87205

== ENCOUNTER 2024-04-28 10:15 | Outpatient (RCR) | payer MEDICARE, OTHER, SELFPAY ==
[2024-04-04 00:28] VITALS: BP 142/93; PULSE 98; RESP 18; TEMP 36.2
[2024-04-07 09:08] VITALS: BP 152/89; PULSE 86; RESP 18; TEMP 35.7
--- NOTE | 2024-04-07 12:27 | PCM.WC.PN ---
History of Present Illness Date of Service: 04/07/24 Chief Complaint: Follow-up on an open wound on upper mid back History of Wound: 73-year-old white female that had a bump on her back that exploded open on her and she immediately got into her family doctor. The nurse practitioner cleaned it out and has put her on oral antibiotics and suggested she be seen at the wound center. Progress of Wound: Appears to be at a standstill on her right upper back. Measurements are about the same on the undermining part will do better at debridement and get more bloody show. I feel they are not getting the Aquacel extra moistened enough up inside to do any good. Subjective Subjective Patient is still agreeable with plan of care Objective Data Objective Data Patient is finished her antibiotic for over a week so it is too early to culture for now we will continue using Aquacel extra under the skin more moistened. Vital Signs: Vital Signs Temp Pulse Resp BP 96.2 F L 86 18 152/89 H 04/07/24 09:08 04/07/24 09:08 04/07/24 09:08 04/07/24 09:08 Lab / Micro Data Attestation: I reviewed the patient's lab results. Physical Exam Const oriented x3 General Appearance: cooperative Exam Limitations: no limitations HEENT normocephalic Eyes General Eye: normal appearance of both eyes Neck full ROM Resp normal respiratory effort Effort and Inspection: able to speak in complete sentences Auscultation: clear to auscultation bilaterally Cardio regular rate and regular rhythm Palpation: normal PMI Rate: regular rate Rhythm: regular rhythm GI Palpation: soft and no hepatosplenomegaly external exam normal Back/Spine Cervical Spine: cervical ROM normal Thoracic Spine / Upper Back: normal to inspection Lumbar Spine / Lower Back: normal to inspection Skin Skin Narrative: Square erythematous area around the wound from tape allergy. Open whole with positive depth and undermining towards the spine on the sebaceous cyst. Neuro oriented x3 Psych Appearance: grossly normal Speech: normal speech Thought Content: normal thought content Judgement: judgement good Debridement Note Debridement Note Wound debrided: Sebaceous cyst open wound Type of Debridement: Excisional debridement Anesthesia Used: 5% Lidocaine Gel Depth: Down to and including healthy tissue and in the subcutaneous layer Percentage of wound debrided: 100 Instrument Used: 3mm curette Severity: Fat Layer Exposed Amount of bleeding with debridement: Mild Bleeding Controlled with: Compression and gauze Patient tolerated procedure: Patient tolerated procedure well Post-Debridement Measurements and Additional Note: Post-Debridement Measurements/Treatment NAILA - Nurse 1 - General Ulcer Assessment Start: 04/07/24 09:04 Freq: Status: Active Protocol: INDIO Activity Type Activity Date Activity User E-sign Co-sign Detail Recorded Client Recorded Date Recorded By Document 04/07/24 09:08 JOSE [id number] 04/07/24 09:17 JOSE 04/07/24 09:08 WC - Today's Visit Information Type of service Follow-up Visit (Physician/WILDLIFE BIOSTATION RESEARCH ECOLOGIST ) Arrival Mode Ambulatory Transfer Assistance None Patient Identification Verified (Name & Yes ) Patient Requires Transmission-Based No Precautions Vital Signs Temperature (97.8 F-99.1 F) 96.2 F L Temperature Source Temporal Pulse Rate (60-100) 86 Pulse Location Monitor Respiratory Rate (12-18) 18 Respiratory rate source Observation Blood Pressure (90/60-120/80) 152/89 H Blood Pressure Mean (mm Hg) 110 Source Monitor History Since Last Visit- (Skip if this is Patient's initial visit) Have you changed medications since your No last visit? Any new allergies or adverse reactions No Had a fall/change in ADL's that may No increase risk of falls Signs or symptoms of abuse and/or No neglect since last visit Have you been in the hospital since your No last visit? Has dressing in place as prescribed Yes Has compression in place as prescribed N/A Has offloadiing in place as prescribed Yes Experienced any changes in pain level or No management Pain Scale: 0-10 Numeric Is Patient Pain Free? Yes NAILA - Nurse 1 - General Ulcer Measurement Start: 04/07/24 09:04 Freq: Status: Active Protocol: Activity Type Activity Date Activity User E-sign Co-sign Detail Recorded Client Recorded Date Recorded By Document 04/07/24 09:08 JOSE [id number] 04/07/24 09:17 JOSE 04/07/24 09:08 Wound Center Nurse 1 #1 Right mid back -Current Size (cm) - Length 0.6 -Current Size (cm) - Width 0.2 -Current Size (cm) - Depth 0.2 -Total Square Cm 0.12 -Photo Taken Yes -Undermining/Tunneling Starts (O'clock 10 ) -Undermining/Tunneling Ends (O'clock) 11 -Maximum Distance (cm) 2.4 -Exudate Amt Small -Exudate Type Serosanguineous -Wound Margin Thickened & Rolled Under -Granulation Amt Small (1-33%) -Granulation Quality [place] -Necrosis Amt None Present (0 %) -Structure Exposed N/A -Texture (Concepcion-wound Skin Appearance) Scarring -Moisture (Concepcion-wound Skin Appearance) No Abnormality -Color (Concepcion-wound Skin Appearance) No Abnormality -Temperature (Concepcion-wound Skin No Abnormality Appearance) (Pt Warm) -Tenderness on Palpation (Concepcion-wound No Skin Appearance) -Ulcer Cleansing Soap and Water -Foul Odor after Cleansing No -Anesthetic Used 5% Lidocaine Gel - Nurse 2 - General Ulcer CM Notes Start: 04/07/24 09:04 Freq: Status: Active Protocol: Activity Type Activity Date Activity User E-sign Co-sign Detail Recorded Client Recorded Date Recorded By Document 04/07/24 09:28 [facility] [id number] 04/07/24 09:32 [facility] 04/07/24 09:28 Wound Center Nurse 2 -Time 09:28 -Correct Patient Yes -Correct Side, Site, Position Yes -Correct Procedure Yes -Procedure Performed Yes -Type of Procedure Debridement -Clinical Debridement Subcutaneous -Tissue Removed Subcutaneous -Post Debridement (cm) - Length 1 -Post Debridement (cm) - Width 0.2 -Post Debridement (cm) - Depth 0.1 -Total Square (Post) (cm) 0.2 -Area of Debridement (cm) - Length 1 -Area of Debridement (cm) - Width 0.2 -Total Square (Area) (cm) 0.2 -Tunneling No -Undermining/Tunneling Yes -Undermining/Tunneling Starts (O'clock 10 ) -Undermining/Tunneling Ends (O'clock) 11 -Maximum Distance (cm) 2.5 -Circular Undermining No -Wound/Ulcer Outcome Not Healed -Ulcer Cleansing Rinsed/ Irrigated with Saline -Foul Odor after Cleansing No -Bioengineered Tissue No -Bleeding Controlled with Pressure -Treatment Response Procedure Tolerated Well -Offloading No -Debridement - Subq, 1st 20sq cm Yes Pain Scale: 0-10 Numeric Is Patient Pain Free? Yes - Nurse 3 - General Ulcer D/C NN Start: 04/07/24 09:04 Freq: Status: Active Protocol: Activity Type Activity Date Activity User E-sign Co-sign Detail Recorded Client Recorded Date Recorded By Document 04/07/24 09:35 [facility] [id number] 04/07/24 09:36 [facility] 04/07/24 09:35 Wound Care Center Nurse 3 #1 Right mid back -Ulcer Cleansing Rinsed/ Irrigated with Saline -Foul Odor after Cleansing No -Primary Dressing Applied Aquacel Extra, Mepilex Border -Aquacel Extra 1 -Mepilex Border 1 Treatment Response Procedure Tolerated Well Pain Scale: 0-10 Numeric Is Patient Pain Free? Yes WC - Visit Discharge Discharge Condition Stable Ambulatory Status Ambulatory Transportation Private Auto Accompanied by friend Assessment/Plan Assessment/Plan (1) Wound of right side of back: CODE(S): S21.201A - Unspecified open wound of right back wall of thorax without penetration into thoracic cavity, initial encounter QUALIFIERS: Encounter type: initial encounter Qualified Code(s): S21.201A - Unspecified open wound of right back wall of thorax without penetration into thoracic cavity, initial encounter PLAN: Wash as usual and scrub the back area. Then wash again when she comes out pat dry pack with half-inch Aquacel extra gauze moistened as applied and an absorbent XL foam dressing over top nurse friend to do the dressings daily Follow-up 1 week (2) Infected sebaceous cyst of skin: CODE(S): L72.3 - Sebaceous cyst; L08.9 - Local infection of the skin and subcutaneous tissue, unspecified (3) Nonhealing nonsurgical wound: CODE(S): T14.8XXA - Other injury of unspecified body region, initial encounter
--- NOTE | 2024-04-09 09:04 | WC ---
PHOTO 04/07/24 RIGHT MID BACK
[2024-04-14 10:15] VITALS: BP 143/96; PULSE 112; RESP 16; TEMP 36.4
--- NOTE | 2024-04-14 11:21 | PN.PCM_ITS ---
History of Present Illness Date of Service: 04/14/24 Chief Complaint: Follow-up on an open wound on upper mid back History of Wound: 73-year-old white female that had a bump on her back that exploded open on her and she immediately got into her family doctor. The nurse practitioner cleaned it out and has put her on oral antibiotics and suggested she be seen at the wound center. Progress of Wound: The undermining of the wound is better this week she is down to 0.5 cm. The wound itself is doing well no odor she did not qualify for EpiFix because the wound was not big enough. We will continue packing with the Aquacel extra well and up into the wound to see if we can get that smaller. Again I roughed it up and side made it bleed better and hopefully that will help with healing faster. Subjective Subjective Patient is pleased with better outcomes Objective Data Objective Data No sign of infection we will continue using the Aquacel packing and follow-up weekly Vital Signs: Vital Signs Temp Pulse Resp BP O2 Del Method 97.5 F L 112 H 16 143/96 H Room Air 04/14/24 10:15 04/14/24 10:15 04/14/24 10:15 04/14/24 10:15 04/14/24 10:15 Oxygen Delivery Method Room Air Physical Exam Const oriented x3 General Appearance: cooperative Exam Limitations: no limitations HEENT normocephalic Eyes General Eye: normal appearance of both eyes Neck full ROM Resp normal respiratory effort Effort and Inspection: able to speak in complete sentences Auscultation: clear to auscultation bilaterally Cardio regular rate and regular rhythm Palpation: normal PMI Rate: regular rate Rhythm: regular rhythm GI Palpation: soft and no hepatosplenomegaly external exam normal Back/Spine Cervical Spine: cervical ROM normal Thoracic Spine / Upper Back: normal to inspection Lumbar Spine / Lower Back: normal to inspection Skin Skin Narrative: Square erythematous area around the wound from tape allergy. Open whole with positive depth and undermining towards the spine on the sebaceous cyst. Neuro oriented x3 Psych Appearance: grossly normal Speech: normal speech Thought Content: normal thought content Judgement: judgement good Debridement Note Debridement Note Wound debrided: Sebaceous cyst open wound Type of Debridement: Excisional debridement Anesthesia Used: 5% Lidocaine Gel Depth: Down to and including healthy tissue and in the subcutaneous layer Percentage of wound debrided: 100 Instrument Used: 3mm curette Severity: Fat Layer Exposed Amount of bleeding with debridement: Mild Bleeding Controlled with: Compression and gauze Patient tolerated procedure: Patient tolerated procedure well Post-Debridement Measurements and Additional Note: Post-Debridement Measurements/Treatment NAILA - Nurse 1 - General Ulcer Assessment Start: 04/07/24 09:04 Freq: Status: Active Protocol: INDOI Activity Type Activity Date Activity User E-sign Co-sign Detail Recorded Client Recorded Date Recorded By Document 04/07/24 09:08 DL [id number] 04/07/24 09:17 DL Document 04/14/24 10:15 BMF [id number] 04/14/24 10:21 BMF 04/07/24 04/14/24 09:08 10:15 WC - Today's Visit Information Type of service Follow-up Visit Follow-up Visit (Physician/IRRADIATED FUEL HANDLER (Physician/IRRADIATED FUEL HANDLER ) ) Arrival Mode Ambulatory Ambulatory,Cane Transfer Assistance None Patient Identification Verified (Name & Yes Yes ) Patient Requires Transmission-Based No No Precautions Vital Signs Temperature (97.8 F-99.1 F) 96.2 F L 97.5 F L Temperature Source Temporal Temporal Pulse Rate (60-100) 86 112 H Pulse Location Monitor Monitor Respiratory Rate (12-18) 18 16 Respiratory rate source Observation Observation Oxygen Delivery Method Room Air Blood Pressure (90/60-120/80) 152/89 H 143/96 H Blood Pressure Mean (mm Hg) 110 111 Source Monitor Monitor Position Sitting Blood Pressure Location Left Arm History Since Last Visit- (Skip if this is Patient's initial visit) Have you changed medications since your No No last visit? Any new allergies or adverse reactions No No Had a fall/change in ADL's that may No No increase risk of falls Signs or symptoms of abuse and/or No No neglect since last visit Have you been in the hospital since your No No last visit? Has dressing in place as prescribed Yes Yes Has compression in place as prescribed N/A N/A Has offloadiing in place as prescribed Yes N/A Experienced any changes in pain level or No No management Left Footwear Regular Shoe Right Footwear Regular Shoe Pain Scale: 0-10 Numeric Is Patient Pain Free? Yes Yes NAILA [place] Nurse 1 - General Ulcer Measurement Start: 04/07/24 09:04 Freq: Status: Active Protocol: Activity Type Activity Date Activity User E-sign Co-sign Detail Recorded Client Recorded Date Recorded By Document 04/07/24 09:08 [id number] 04/07/24 09:17 Document 04/14/24 10:15 [id number] 04/14/24 10:21 [facility] 04/07/24 04/14/24 09:08 10:15 Wound Center Nurse 1 #1 Right mid back -Combined with other wound No -Current Size (cm) - Length 0.6 0.6 -Current Size (cm) - Width 0.2 0.3 -Current Size (cm) - Depth 0.2 0.1 -Total Square Cm 0.12 0.18 -Photo Taken Yes -Epithelialization Small 1-33% -Undermining/Tunneling Yes -Undermining/Tunneling Starts (O'clock 10 8 ) -Undermining/Tunneling Ends (O'clock) 11 10 -Maximum Distance (cm) 2.4 2 -Circular Undermining No -Exudate Amt Small Medium -Exudate Type Serosanguineous Sanguineous -Wound Margin Thickened & Distinct, Rolled Under Outline Attached -Granulation Amt Small (1-33%) Large (67-100%) -Granulation Quality [place] -Slough/Fibrin No -Necrosis Amt None Present (0 None Present (0 %) %) -Structure Exposed N/A -Texture (Concepcion-wound Skin Appearance) Scarring Assessed, Scarring -Moisture (Concepcion-wound Skin Appearance) No Abnormality Assessed -Color (Concepcion-wound Skin Appearance) No Abnormality Assessed -Temperature (Concepcion-wound Skin No Abnormality No Abnormality Appearance) (Pt Warm) (Pt Warm) -Tenderness on Palpation (Concepcion-wound No No Skin Appearance) -Ulcer Cleansing Soap and Water Rinsed/ Irrigated with Saline -Foul Odor after Cleansing No No -Anesthetic Used 5% Lidocaine 5% Lidocaine Gel Gel WC - Nurse 2 - General Ulcer CM Notes Start: 04/07/24 09:04 Freq: Status: Active Protocol: Activity Type Activity Date Activity User E-sign Co-sign Detail Recorded Client Recorded Date Recorded By Document 04/07/24 09:28 [facility] [id number] 04/07/24 09:32 [facility] Document 04/14/24 10:45 [facility] [id number] 04/14/24 10:50 [facility] 04/07/24 04/14/24 09:28 10:45 Wound Center Nurse 2 #1 Right mid back -Time : 10:46 -Correct Patient Yes Yes -Correct Side, Site, Position Yes Yes -Correct Procedure Yes Yes -Procedure Performed Yes Yes -Type of Procedure Debridement Debridement -Clinical Debridement Subcutaneous Subcutaneous -Tissue Removed Subcutaneous Subcutaneous -Post Debridement (cm) - Length 1 1.5 -Post Debridement (cm) - Width 0.2 0.1 -Post Debridement (cm) - Depth 0.1 0.2 -Total Square (Post) (cm) 0.2 0.15 -Area of Debridement (cm) - Length 1 1.5 -Area of Debridement (cm) - Width 0.2 0.1 -Total Square (Area) (cm) 0.2 0.15 -Tunneling No No -Undermining/Tunneling Yes Yes -Undermining/Tunneling Starts (O'clock 10 10 ) -Undermining/Tunneling Ends (O'clock) 11 11 -Maximum Distance (cm) 2.5 2.0 -Circular Undermining No No -Wound/Ulcer Outcome Not Healed Not Healed -Ulcer Cleansing Rinsed/ Rinsed/ Irrigated with Irrigated with Saline Saline -Foul Odor after Cleansing No No -Bioengineered Tissue No No -Bleeding Controlled with Pressure Pressure -Treatment Response Procedure Procedure Tolerated Well Tolerated Well -Offloading No -Debridement - Subq, 1st 20sq cm Yes Yes Pain Scale: 0-10 Numeric Is Patient Pain Free? Yes Yes - Nurse 3 - General Ulcer D/C NN Start: 04/07/24 09:04 Freq: Status: Active Protocol: Activity Type Activity Date Activity User E-sign Co-sign Detail Recorded Client Recorded Date Recorded By Document 04/07/24 09:35 [facility] [id number] 04/07/24 09:36 [facility] Document 04/14/24 11:06 DS [id number] 04/14/24 11:07 DS 04/07/24 04/14/24 09:35 11:06 Wound Care Center Nurse 3 #1 Right mid back -Ulcer Cleansing Rinsed/ Rinsed/ Irrigated with Irrigated with Saline Saline -Foul Odor after Cleansing No -Primary Dressing Applied Aquacel Extra, Aquacel Extra, Mepilex Border Mepilex Border -Aquacel Extra 1 1 -Mepilex Border 1 1 Treatment Response Procedure Tolerated Well Pain Scale: 0-10 Numeric Is Patient Pain Free? Yes Yes WC - Visit Discharge Discharge Condition Stable Stable Ambulatory Status Ambulatory Ambulatory,Cane Transportation Private Auto Private Auto Accompanied by friend Medication Reconcilliation completed & Yes provided to patient/care provider Clinical Summary of Care Provided Yes Assessment/Plan Assessment/Plan (1) Wound of right side of back: CODE(S): S21.201A - Unspecified open wound of right back wall of thorax without penetration into thoracic cavity, initial encounter QUALIFIERS: Encounter type: initial encounter Qualified Code(s): S21.201A - Unspecified open wound of right back wall of thorax without penetration into thoracic cavity, initial encounter PLAN: Wash as usual and scrub the back area. Then wash again when she comes out pat dry pack with half-inch Aquacel extra gauze moistened as applied and an absorbent XL foam dressing over top nurse friend to do the dressings daily Follow-up 1 week (2) Infected sebaceous cyst of skin: CODE(S): L72.3 - Sebaceous cyst; L08.9 - Local infection of the skin and subcutaneous tissue, unspecified (3) Nonhealing nonsurgical wound: CODE(S): T14.8XXA - Other injury of unspecified body region, initial encounter
[2024-04-21 10:32] VITALS: BP 149/95; PULSE 89; RESP 14; TEMP 36.5
--- NOTE | 2024-04-21 12:18 | PN.PCM_ITS ---
History of Present Illness Date of Service: 04/21/24 Chief Complaint: Follow-up on an open wound on upper mid back History of Wound: 73-year-old white female that had a bump on her back that exploded open on her and she immediately got into her family doctor. The nurse practitioner cleaned it out and has put her on oral antibiotics and suggested she be seen at the wound center. Progress of Wound: The undermining of the wound is better this week she is down to 0.5 cm. The wound itself is doing well no odor she did not qualify for EpiFix because the wound was not big enough. We will continue packing with the Aquacel extra well and up into the wound to see if we can get that smaller. Again I roughed it up and side made it bleed better and hopefully that will help with healing faster. Subjective Subjective Patient is happy with outcomes Objective Data Objective Data Will continue packing with Aquacel extra and moisturizing it as best she the nurse can and covering with an absorbent dressing Vital Signs: Vital Signs Temp Pulse Resp BP O2 Del Method 97.7 F L 89 14 149/95 H Room Air 04/21/24 10:32 04/21/24 10:32 04/21/24 10:32 04/21/24 10:32 04/14/24 10:15 Oxygen Delivery Method Room Air Lab / Micro Data Attestation: I reviewed the patient's lab results. Physical Exam Const oriented x3 General Appearance: cooperative Exam Limitations: no limitations HEENT normocephalic Eyes General Eye: normal appearance of both eyes Neck full ROM Resp normal respiratory effort Effort and Inspection: able to speak in complete sentences Auscultation: clear to auscultation bilaterally Cardio regular rate and regular rhythm Palpation: normal PMI Rate: regular rate Rhythm: regular rhythm GI Palpation: soft and no hepatosplenomegaly external exam normal Back/Spine Cervical Spine: cervical ROM normal Thoracic Spine / Upper Back: normal to inspection Lumbar Spine / Lower Back: normal to inspection Skin Skin Narrative: Square erythematous area around the wound from tape allergy. Open whole with positive depth and undermining towards the spine on the sebaceous cyst. Neuro oriented x3 Psych Appearance: grossly normal Speech: normal speech Thought Content: normal thought content Judgement: judgement good Debridement Note Debridement Note Wound debrided: Sebaceous cyst open wound Type of Debridement: Excisional debridement Anesthesia Used: 5% Lidocaine Gel Depth: Down to and including healthy tissue and in the subcutaneous layer Percentage of wound debrided: 100 Instrument Used: 3mm curette Severity: Fat Layer Exposed Amount of bleeding with debridement: Mild Bleeding Controlled with: Compression and gauze Patient tolerated procedure: Patient tolerated procedure well Post-Debridement Measurements and Additional Note: Post-Debridement Measurements/Treatment NAILA - Nurse 1 - General Ulcer Assessment Start: 04/07/24 09:04 Freq: Status: Active Protocol: INDIO Activity Type Activity Date Activity User E-sign Co-sign Detail Recorded Client Recorded Date Recorded By Document 04/07/24 09:08 DL [id number] 04/07/24 09:17 DL Document 04/14/24 10:15 BMF [id number] 04/14/24 10:21 BMF Document 04/21/24 10:32 ML [id number] 04/21/24 10:42 ML 04/07/24 04/14/24 04/21/24 09:08 10:15 10:32 NAILA - Today's Visit Information Type of service Follow-up Visit Follow-up Visit Follow-up Visit (Physician/PARTICLEBOARD FACTORY WORKER (Physician/PARTICLEBOARD FACTORY WORKER (Physician/PARTICLEBOARD FACTORY WORKER ) ) ) Arrival Mode Ambulatory Ambulatory,Cane Cane Transfer Assistance None None Patient Identification Verified (Name & Yes Yes Yes ) Patient Requires Transmission-Based No No No Precautions Vital Signs Temperature (97.8 F-99.1 F) 96.2 F L 97.5 F L 97.7 F L Temperature Source Temporal Temporal Temporal Pulse Rate (60-100) 86 112 H 89 Pulse Location Monitor Monitor Monitor Respiratory Rate (12-18) 18 16 14 Respiratory rate source Observation Observation Observation Oxygen Delivery Method Room Air Blood Pressure (90/60-120/80) 152/89 H 143/96 H 149/95 H Blood Pressure Mean (mm Hg) 110 111 113 Source Monitor Monitor Monitor Position Sitting Sitting Blood Pressure Location Left Arm Left Arm History Since Last Visit- (Skip if this is Patient's initial visit) Have you changed medications since your No No No last visit? Any new allergies or adverse reactions No No No Had a fall/change in ADL's that may No No No increase risk of falls Signs or symptoms of abuse and/or No No No neglect since last visit Have you been in the hospital since your No No No last visit? Has dressing in place as prescribed Yes Yes Yes Has compression in place as prescribed N/A N/A N/A Has offloadiing in place as prescribed Yes N/A N/A Experienced any changes in pain level or No No No management Left Footwear Regular Shoe Regular Shoe Right Footwear Regular Shoe Regular Shoe Pain Scale: 0-10 Numeric Is Patient Pain Free? Yes Yes Yes WC - Nurse 1 - General Ulcer Measurement Start: 04/07/24 09:04 Freq: Status: Active Protocol: Activity Type Activity Date Activity User E-sign Co-sign Detail Recorded Client Recorded Date Recorded By Document 04/07/24 09:08 DL [id number] 04/07/24 09:17 DL Document 04/14/24 10:15 BMF [id number] 04/14/24 10:21 BMF Document 04/21/24 10:32 ML [id number] 04/21/24 10:42 ML 04/07/24 04/14/24 04/21/24 09:08 10:15 10:32 Wound Center Nurse 1 #1 Right mid back -Combined with other wound No -Current Size (cm) - Length 0.6 0.6 1 -Current Size (cm) - Width 0.2 0.3 1 -Current Size (cm) - Depth 0.2 0.1 2.5 -Total Square Cm 0.12 0.18 1 -Photo Taken Yes -Epithelialization Small 1-33% Medium 34-66% -Undermining/Tunneling Yes -Undermining/Tunneling Starts (O'clock 10 8 ) -Undermining/Tunneling Ends (O'clock) 11 10 -Maximum Distance (cm) 2.4 2 -Circular Undermining No -Exudate Amt Small Medium Medium -Exudate Type Serosanguineous Sanguineous Serosanguineous -Wound Margin Thickened & Distinct, Distinct, Rolled Under Outline Outline Attached Attached -Granulation Amt Small (1-33%) Large (67-100%) Medium (34-66%) -Granulation Quality [place] -Slough/Fibrin No -Necrosis Amt None Present (0 None Present (0 None Present (0 %) %) %) -Structure Exposed N/A -Texture (Concepcion-wound Skin Appearance) Scarring Assessed, Assessed Scarring -Moisture (Concepcion-wound Skin Appearance) No Abnormality Assessed Assessed -Color (Concepcion-wound Skin Appearance) No Abnormality Assessed Assessed -Temperature ([place]pcion-wound Skin No Abnormality No Abnormality No Abnormality Appearance) (Pt Warm) (Pt Warm) (Pt Warm) -Tenderness on Palpation ([place]pcion-wound No No Skin Appearance) -Ulcer Cleansing Soap and Water Rinsed/ Rinsed/ Irrigated with Irrigated with Saline Saline -Foul Odor after Cleansing No No -Anesthetic Used 5% Lidocaine 5% Lidocaine 5% Lidocaine Gel Gel Gel WC - Nurse 2 - General Ulcer CM Notes Start: 04/07/24 09:04 Freq: Status: Active Protocol: Activity Type Activity Date Activity User E-sign Co-sign Detail Recorded Client Recorded Date Recorded By Document 04/07/24 09:28 [facility] [id number] 04/07/24 09:32 [facility] Document 04/14/24 10:45 [facility] [id number] 04/14/24 10:50 [facility] Document 04/21/24 10:54 [facility] [id number] 04/21/24 10:58 [facility] 04/07/24 04/14/24 04/21/24 09:28 10:45 10:54 Wound Center Nurse 2 #1 Right mid back -Time 09:28 10:46 10:54 -Correct Patient Yes Yes Yes -Correct Side, Site, Position Yes Yes Yes -Correct Procedure Yes Yes Yes -Procedure Performed Yes Yes Yes -Type of Procedure Debridement Debridement Debridement -Clinical Debridement Subcutaneous Subcutaneous Subcutaneous -Tissue Removed Subcutaneous Subcutaneous Subcutaneous -Post Debridement (cm) - Length 1 1.5 1.3 -Post Debridement (cm) - Width 0.2 0.1 0.2 -Post Debridement (cm) - Depth 0.1 0.2 0.2 -Total Square (Post) (cm) 0.2 0.15 0.26 -Area of Debridement (cm) - Length 1 1.5 1.3 -Area of Debridement (cm) - Width 0.2 0.1 0.2 -Total Square (Area) (cm) 0.2 0.15 0.26 -Tunneling No No No -Undermining/Tunneling Yes Yes Yes -Undermining/Tunneling Starts (O'clock 10 10 10 ) -Undermining/Tunneling Ends (O'clock) 11 11 11 -Maximum Distance (cm) 2.5 2.0 2.4 -Circular Undermining No No No -Wound/Ulcer Outcome Not Healed Not Healed Not Healed -Ulcer Cleansing Rinsed/ Rinsed/ Rinsed/ Irrigated with Irrigated with Irrigated with Saline Saline Saline -Foul Odor after Cleansing No No No -Bioengineered Tissue No No No -Bleeding Controlled with Pressure Pressure Pressure -Treatment Response Procedure Procedure Procedure Tolerated Well Tolerated Well Tolerated Well -Offloading No -Debridement - Subq, 1st 20sq cm Yes Yes Yes Pain Scale: 0-10 Numeric Is Patient Pain Free? Yes Yes Yes - Nurse 3 - General Ulcer D/C NN Start: 04/07/24 09:04 Freq: Status: Active Protocol: Activity Type Activity Date Activity User E-sign Co-sign Detail Recorded Client Recorded Date Recorded By Document 04/07/24 09:35 BMF [id number] 04/07/24 09:36 BMF Document 04/14/24 11:06 DS [id number] 04/14/24 11:07 DS Document 04/21/24 11:02 DL [id number] 04/21/24 11:08 DL 04/07/24 04/14/24 04/21/24 09:35 11:06 11:02 Wound Care Center Nurse 3 #1 Right mid back -Ulcer Cleansing Rinsed/ Rinsed/ Rinsed/ Irrigated with Irrigated with Irrigated with Saline Saline Saline -Foul Odor after Cleansing No No -Primary Dressing Applied Aquacel Extra, Aquacel Extra, Aquacel Extra, Mepilex Border Mepilex Border Mepilex Border -Aquacel Extra 1 1 1 -Mepilex Border 1 1 1 Treatment Response Procedure Procedure Tolerated Well Tolerated Well Pain Scale: 0-10 Numeric Is Patient Pain Free? Yes Yes Yes - Visit Discharge Discharge Condition Stable Stable Stable Ambulatory Status Ambulatory Ambulatory,Cane Ambulatory,Cane Transportation Private Auto Private Auto Accompanied by friend Medication Reconcilliation completed & Yes provided to patient/care provider Clinical Summary of Care Provided Yes Assessment/Plan Assessment/Plan (1) Wound of right side of back: CODE(S): S21.201A - Unspecified open wound of right back wall of thorax without penetration into thoracic cavity, initial encounter QUALIFIERS: Encounter type: initial encounter Qualified Code(s): S21.201A - Unspecified open wound of right back wall of thorax without penetration into thoracic cavity, initial encounter PLAN: Wash as usual and scrub the back area. Then wash again when she comes out pat dry pack with half-inch Aquacel extra gauze moistened as applied and an absorbent XL foam dressing over top nurse friend to do the dressings daily Follow-up 1 week (2) Infected sebaceous cyst of skin: CODE(S): L72.3 - Sebaceous cyst; L08.9 - Local infection of the skin and subcutaneous tissue, unspecified (3) Nonhealing nonsurgical wound: CODE(S): T14.8XXA - Other injury of unspecified body region, initial encounter
[2024-04-28 10:41] VITALS: BP 160/88; PULSE 89; RESP 18; TEMP 36.3
--- NOTE | 2024-04-28 12:06 | PCM.WC.PN ---
History of Present Illness Date of Service: 04/28/24 Chief Complaint: Follow-up on an open wound on upper mid back History of Wound: 73-year-old white female that had a bump on her back that exploded open on her and she immediately got into her family doctor. The nurse practitioner cleaned it out and has put her on oral antibiotics and suggested she be seen at the wound center. Progress of Wound: The undermining of the wound is better this week she is down to 0.5 cm. The wound itself is doing well no odor she did not qualify for EpiFix because the wound was not big enough. We will continue packing with the Aquacel extra well and up into the wound to see if we can get that smaller. Again I roughed it up and side made it bleed better and hopefully that will help with healing faster. Subjective Subjective Patient request to go 2 weeks Objective Data Objective Data The area is much smaller she is got about a 10-2 area that is much smaller than what it was still having a hard time understanding the nurse that is helping her she has difficult time with packing but I keep reiterating she needs to pack it as far she can up there and then moisten it because that is what activates it. Vital Signs: Vital Signs Temp Pulse Resp BP O2 Del Method 97.3 F L 89 18 160/88 H Room Air 04/28/24 10:41 04/28/24 10:41 04/28/24 10:41 04/28/24 10:41 04/14/24 10:15 Oxygen Delivery Method Room Air Lab / Micro Data Attestation: I reviewed the patient's lab results. Physical Exam Const oriented x3 General Appearance: cooperative Exam Limitations: no limitations HEENT normocephalic Eyes General Eye: normal appearance of both eyes Neck full ROM Resp normal respiratory effort Effort and Inspection: able to speak in complete sentences Auscultation: clear to auscultation bilaterally Cardio regular rate and regular rhythm Palpation: normal PMI Rate: regular rate Rhythm: regular rhythm GI Palpation: soft and no hepatosplenomegaly external exam normal Back/Spine Cervical Spine: cervical ROM normal Thoracic Spine / Upper Back: normal to inspection Lumbar Spine / Lower Back: normal to inspection Skin Skin Narrative: Square erythematous area around the wound from tape allergy. Open whole with positive depth and undermining towards the spine on the sebaceous cyst. Neuro oriented x3 Psych Appearance: grossly normal Speech: normal speech Thought Content: normal thought content Judgement: judgement good Debridement Note Debridement Note Wound debrided: Sebaceous cyst open wound Type of Debridement: Excisional debridement Anesthesia Used: 5% Lidocaine Gel Depth: Down to and including healthy tissue and in the subcutaneous layer Percentage of wound debrided: 100 Instrument Used: 3mm curette Severity: Fat Layer Exposed Amount of bleeding with debridement: Mild Bleeding Controlled with: Compression and gauze Patient tolerated procedure: Patient tolerated procedure well Post-Debridement Measurements and Additional Note: Post-Debridement Measurements/Treatment - Nurse 1 - General Ulcer Assessment Start: 04/07/24 09:04 Freq: Status: Active Protocol: NAILATuniiRUDDY Activity Type Activity Date Activity User E-sign Co-sign Detail Recorded Client Recorded Date Recorded By Document 04/07/24 09:08 DL [id number] 04/07/24 09:17 DL Document 04/14/24 10:15 BMF [id number] 04/14/24 10:21 BMF Document 04/21/24 10:32 ML [id number] 04/21/24 10:42 ML Document 04/28/24 10:41 RB [id number] 04/28/24 10:45 RB 04/07/24 04/14/24 04/21/24 09:08 10:15 10:32 - Today's Visit Information Type of service Follow-up Visit Follow-up Visit Follow-up Visit (Physician/ELECTRICIAN CONSTRUCTOR SUPERVISOR (Physician/ELECTRICIAN CONSTRUCTOR SUPERVISOR (Physician/ELECTRICIAN CONSTRUCTOR SUPERVISOR ) ) ) Arrival Mode Ambulatory Ambulatory,Cane Cane Transfer Assistance None None Patient Identification Verified (Name & Yes Yes Yes ) Patient Requires Transmission-Based No No No Precautions Vital Signs Temperature (97.8 F-99.1 F) 96.2 F L 97.5 F L 97.7 F L Temperature Source Temporal Temporal Temporal Pulse Rate (60-100) 86 112 H 89 Pulse Location Monitor Monitor Monitor Respiratory Rate (12-18) 18 16 14 Respiratory rate source Observation Observation Observation Oxygen Delivery Method Room Air Blood Pressure (90/60-120/80) 152/89 H 143/96 H 149/95 H Blood Pressure Mean (mm Hg) 110 111 113 Source Monitor Monitor Monitor Position Sitting Sitting Blood Pressure Location Left Arm Left Arm History Since Last Visit- (Skip if this is Patient's initial visit) Have you changed medications since your No No No last visit? Any new allergies or adverse reactions No No No Had a fall/change in ADL's that may No No No increase risk of falls Signs or symptoms of abuse and/or No No No neglect since last visit Have you been in the hospital since your No No No last visit? Has dressing in place as prescribed Yes Yes Yes Has compression in place as prescribed N/A N/A N/A Has offloadiing in place as prescribed Yes N/A N/A Experienced any changes in pain level or No No No management Left Footwear Regular Shoe Regular Shoe Right Footwear Regular Shoe Regular Shoe Pain Scale: 0-10 Numeric Is Patient Pain Free? Yes Yes Yes 04/28/24 10:41 WC - Today's Visit Information Type of service Follow-up Visit (Physician/ELECTRICIAN CONSTRUCTOR SUPERVISOR ) Arrival Mode Ambulatory Transfer Assistance None Patient Identification Verified (Name & Yes ) Patient Requires Transmission-Based No Precautions Vital Signs Temperature (97.8 F-99.1 F) 97.3 F L Temperature Source Temporal Pulse Rate (60-100) 89 Pulse Location Monitor Respiratory Rate (12-18) 18 Respiratory rate source Observation Oxygen Delivery Method Blood Pressure (90/60-120/80) 160/88 H Blood Pressure Mean (mm Hg) 112 Source Monitor Position Sitting Blood Pressure Location Left Arm History Since Last Visit- (Skip if this is Patient's initial visit) Have you changed medications since your No last visit? Any new allergies or adverse reactions No Had a fall/change in ADL's that may No increase risk of falls Signs or symptoms of abuse and/or No neglect since last visit Have you been in the hospital since your No last visit? Has dressing in place as prescribed Yes Has compression in place as prescribed No Has offloadiing in place as prescribed No Experienced any changes in pain level or No management Left Footwear Right Footwear Pain Scale: 0-10 Numeric Is Patient Pain Free? Yes - Nurse 1 - General Ulcer Measurement Start: 04/07/24 09:04 Freq: Status: Active Protocol: Activity Type Activity Date Activity User E-sign Co-sign Detail Recorded Client Recorded Date Recorded By Document 04/07/24 09:08 DL [id number] 04/07/24 09:17 DL Document 04/14/24 10:15 BMF [id number] 04/14/24 10:21 BMF Document 04/21/24 10:32 ML [id number] 04/21/24 10:42 ML Document 04/28/24 10:41 RB [id number] 04/28/24 10:45 RB 04/07/24 04/14/24 04/21/24 09:08 10:15 10:32 Wound Center Nurse 1 #1 Right mid back -Combined with other wound No -Current Size (cm) - Length 0.6 0.6 1 -Current Size (cm) - Width 0.2 0.3 1 -Current Size (cm) - Depth 0.2 0.1 2.5 -Total Square Cm 0.12 0.18 1 -Photo Taken Yes -Epithelialization Small 1-33% Medium 34-66% -Tunneling -Tunneling Position (O'clock) -Tunneling Distance (cm) -Undermining/Tunneling Yes -Undermining/Tunneling Starts (O'clock 10 8 ) -Undermining/Tunneling Ends (O'clock) 11 10 -Maximum Distance (cm) 2.4 2 -Circular Undermining No -Exudate Amt Small Medium Medium -Exudate Type Serosanguineous Sanguineous Serosanguineous -Wound Margin Thickened & Distinct, Distinct, Rolled Under Outline Outline Attached Attached -Granulation Amt Small (1-33%) Large (67-100%) Medium (34-66%) -Granulation Quality [place] Red [place]doch -Slough/Fibrin No -Necrosis Amt None Present (0 None Present (0 None Present (0 %) %) %) -Necrotic Tissue Type -Structure Exposed N/A -Texture (Concepcion-wound Skin Appearance) Scarring Assessed, Assessed Scarring -Moisture (Concepcion-wound Skin Appearance) No Abnormality Assessed Assessed -Color (Concepcion-wound Skin Appearance) No Abnormality Assessed Assessed -Temperature (Concepcion-wound Skin No Abnormality No Abnormality No Abnormality Appearance) (Pt Warm) (Pt Warm) (Pt Warm) -Tenderness on Palpation (Concepcion-wound No No Skin Appearance) -Ulcer Cleansing Soap and Water Rinsed/ Rinsed/ Irrigated with Irrigated with Saline Saline -Foul Odor after Cleansing No No -Anesthetic Used 5% Lidocaine 5% Lidocaine 5% Lidocaine Gel Gel Gel 04/28/24 10:41 Wound Center Nurse 1 #1 Right mid back -Combined with other wound No -Current Size (cm) - Length 0.7 -Current Size (cm) - Width 0.2 -Current Size (cm) - Depth 0.2 -Total Square Cm 0.14 -Photo Taken Yes -Epithelialization -Tunneling Yes -Tunneling Position (O'clock) 10 -Tunneling Distance (cm) 2.5 -Undermining/Tunneling No -Undermining/Tunneling Starts (O'clock ) -Undermining/Tunneling Ends (O'clock) -Maximum Distance (cm) -Circular Undermining No -Exudate Amt Medium -Exudate Type Serosanguineous -Wound Margin Thickened & Rolled Under -Granulation Amt Medium (34-66%) -Granulation Quality [place] -Slough/Fibrin Yes -Necrosis Amt Medium (34-66%) -Necrotic Tissue Type Adherent Slough -Structure Exposed N/A -Texture (Concepcion-wound Skin Appearance) Assessed, Scarring -Moisture (Concepcion-wound Skin Appearance) Assessed -Color (Concepcion-wound Skin Appearance) Assessed -Temperature (Concepcion-wound Skin No Abnormality Appearance) (Pt Warm) -Tenderness on Palpation (Concepcion-wound No Skin Appearance) -Ulcer Cleansing Wound Cleanser -Foul Odor after Cleansing No -Anesthetic Used 5% Lidocaine Gel WC - Nurse 2 - General Ulcer CM Notes Start: 04/07/24 09:04 Freq: Status: Active Protocol: Activity Type Activity Date Activity User E-sign Co-sign Detail Recorded Client Recorded Date Recorded By Document 04/07/24 09:28 [facility] [id number] 04/07/24 09:32 [facility] Document 04/14/24 10:45 [facility] [id number] 04/14/24 10:50 [facility] Document 04/21/24 10:54 [facility] [id number] 04/21/24 10:58 [facility] Document 04/28/24 11:10 [facility] [id number] 04/28/24 11:13 [facility] 04/07/24 04/14/24 04/21/24 09:28 10:45 10:54 Wound Center Nurse 2 #1 Right mid back -Time 09:28 10:46 10:54 -Correct Patient Yes Yes Yes -Correct Side, Site, Position Yes Yes Yes -Correct Procedure Yes Yes Yes -Procedure Performed Yes Yes Yes -Type of Procedure Debridement Debridement Debridement -Clinical Debridement Subcutaneous Subcutaneous Subcutaneous -Tissue Removed Subcutaneous Subcutaneous Subcutaneous -Post Debridement (cm) - Length 1 1.5 1.3 -Post Debridement (cm) - Width 0.2 0.1 0.2 -Post Debridement (cm) - Depth 0.1 0.2 0.2 -Total Square (Post) (cm) 0.2 0.15 0.26 -Area of Debridement (cm) - Length 1 1.5 1.3 -Area of Debridement (cm) - Width 0.2 0.1 0.2 -Total Square (Area) (cm) 0.2 0.15 0.26 -Tunneling No No No -Tunneling Position (O'clock) -Tunneling Distance (cm) -Undermining/Tunneling Yes Yes Yes -Undermining/Tunneling Starts (O'clock 10 10 10 ) -Undermining/Tunneling Ends (O'clock) 11 11 11 -Maximum Distance (cm) 2.5 2.0 2.4 -Circular Undermining No No No -Wound/Ulcer Outcome Not Healed Not Healed Not Healed -Ulcer Cleansing Rinsed/ Rinsed/ Rinsed/ Irrigated with Irrigated with Irrigated with Saline Saline Saline -Foul Odor after Cleansing No No No -Bioengineered Tissue No No No -Bleeding Controlled with Pressure Pressure Pressure -Treatment Response Procedure Procedure Procedure Tolerated Well Tolerated Well Tolerated Well -Offloading No -Debridement - Subq, 1st 20sq cm Yes Yes Yes Pain Scale: 0-10 Numeric Is Patient Pain Free? Yes Yes Yes 04/28/24 11:10 Wound Center Nurse 2 #1 Right mid back -Time 11:11 -Correct Patient Yes -Correct Side, Site, Position Yes -Correct Procedure Yes -Procedure Performed Yes -Type of Procedure Debridement -Clinical Debridement Subcutaneous -Tissue Removed Subcutaneous -Post Debridement (cm) - Length 0.8 -Post Debridement (cm) - Width 0.1 -Post Debridement (cm) - Depth 0.1 -Total Square (Post) (cm) 0.08 -Area of Debridement (cm) - Length 0.8 -Area of Debridement (cm) - Width 0.1 -Total Square (Area) (cm) 0.08 -Tunneling Yes -Tunneling Position (O'clock) 10 -Tunneling Distance (cm) 1.8 -Undermining/Tunneling No -Undermining/Tunneling Starts (O'clock ) -Undermining/Tunneling Ends (O'clock) -Maximum Distance (cm) -Circular Undermining No -Wound/Ulcer Outcome Not Healed -Ulcer Cleansing Rinsed/ Irrigated with Saline -Foul Odor after Cleansing No -Bioengineered Tissue No -Bleeding Controlled with Pressure -Treatment Response Procedure Tolerated Well -Offloading -Debridement - Subq, 1st 20sq cm Yes Pain Scale: 0-10 Numeric Is Patient Pain Free? Yes - Nurse 3 - General Ulcer D/C NN Start: 04/07/24 09:04 Freq: Status: Active Protocol: Activity Type Activity Date Activity User E-sign Co-sign Detail Recorded Client Recorded Date Recorded By Document 04/07/24 09:35 BMF [id number] 04/07/24 09:36 BMF Document 04/14/24 11:06 DS [id number] 04/14/24 11:07 DS Document 04/21/24 11:02 DL [id number] 04/21/24 11:08 DL Document 04/28/24 11:35 RB [id number] 04/28/24 11:35 RB 04/07/24 04/14/24 04/21/24 09:35 11:06 11:02 Wound Care Center Nurse 3 #1 Right mid back -Ulcer Cleansing Rinsed/ Rinsed/ Rinsed/ Irrigated with Irrigated with Irrigated with Saline Saline Saline -Foul Odor after Cleansing No No -Primary Dressing Applied Aquacel Extra, Aquacel Extra, Aquacel Extra, Mepilex Border Mepilex Border Mepilex Border -Aquacel Extra 1 1 1 -Mepilex Border 1 1 1 Treatment Response Procedure Procedure Tolerated Well Tolerated Well Pain Scale: 0-10 Numeric Is Patient Pain Free? Yes Yes Yes WC - Visit Discharge Discharge Condition Stable Stable Stable Ambulatory Status Ambulatory Ambulatory,Cane Ambulatory,Cane Transportation Private Auto Private Auto Accompanied by friend Medication Reconcilliation completed & Yes provided to patient/care provider Clinical Summary of Care Provided Yes 04/28/24 11:35 Wound Care Center Nurse 3 #1 Right mid back -Ulcer Cleansing Rinsed/ Irrigated with Saline -Foul Odor after Cleansing -Primary Dressing Applied Aquacel Extra, Mepilex Border -Aquacel Extra 1 -Mepilex Border 1 Treatment Response Procedure Tolerated Well Pain Scale: 0-10 Numeric Is Patient Pain Free? Yes WC - Visit Discharge Discharge Condition Stable Ambulatory Status Ambulatory Transportation Private Auto Accompanied by Medication Reconcilliation completed & No provided to patient/care provider Clinical Summary of Care Provided Yes Assessment/Plan Assessment/Plan (1) Wound of right side of back: CODE(S): S21.201A - Unspecified open wound of right back wall of thorax without penetration into thoracic cavity, initial encounter QUALIFIERS: Encounter type: initial encounter Qualified Code(s): S21.201A - Unspecified open wound of right back wall of thorax without penetration into thoracic cavity, initial encounter PLAN: Wash as usual and scrub the back area. Then wash again when she comes out pat dry pack with half-inch Aquacel extra gauze moistened as applied and an absorbent XL foam dressing over top nurse friend to do the dressings daily Follow-up 2 week (2) Infected sebaceous cyst of skin: CODE(S): L72.3 - Sebaceous cyst; L08.9 - Local infection of the skin and subcutaneous tissue, unspecified (3) Nonhealing nonsurgical wound: CODE(S): T14.8XXA - Other injury of unspecified body region, initial encounter
== END 2024-05-03 23:59 | disposition home or self-care (01) ==
LOC: WC 10:15
PROVIDERS: PCP Family Medicine; Referring Provider Nurse Practitioner; Visit Provider Nurse Practitioner
DX: T81.89XA Other complications of procedures, not elsewhere classified, initial encounter (principal); L98.425 Non-pressure chronic ulcer of back with muscle involvement without evidence of necrosis; S21.201A Unspecified open wound of right back wall of thorax without penetration into thoracic cavity, initial encounter; X58.XXXA Exposure to other specified factors, initial encounter; Y83.8 Other surgical procedures as the cause of abnormal reaction of the patient, or of later complication, without mention of misadventure at the time of the procedure; L72.3 Sebaceous cyst; L08.9 Local infection of the skin and subcutaneous tissue, unspecified; Z79.82 Long term (current) use of aspirin; Z79.84 Long term (current) use of oral hypoglycemic drugs; Z79.899 Other long term (current) drug therapy
CPT/HCPCS: 11042

== ENCOUNTER 2024-06-02 09:30 | Outpatient (RCR) | payer MEDICARE, OTHER, SELFPAY ==
[2024-05-04 00:14] VITALS: BP 142/93; PULSE 98; RESP 18; TEMP 36.2
[2024-05-12 09:16] VITALS: BP 145/97; PULSE 89; RESP 18; TEMP 36.2
--- NOTE | 2024-05-12 11:13 | PCM.WC.PN ---
History of Present Illness Date of Service: 05/12/24 Chief Complaint: Follow-up on an open wound on upper mid back History of Wound: 73-year-old white female that had a bump on her back that exploded open on her and she immediately got into her family doctor. The nurse practitioner cleaned it out and has put her on oral antibiotics and suggested she be seen at the wound center. Progress of Wound: We let her go out for 2 weeks on her visits with us because of the type of wound it is it is healing well she is got a small tunneling now only at 10:00 it is not going from 10-12 anymore. The length is shorter also so she is doing a good job of packing with the Aquacel extra and moisturizing it. Still open still has the open areas so we will continue packing and have her follow-up in 2 weeks. No sign of redness or infection looking no odor no drainage. Subjective Subjective Patient is pleased but impatient with care Objective Data Objective Data Healing well just slow will continue packing with the Aquacel extra water. Vital Signs: Vital Signs Temp Pulse Resp BP 97.2 F L 89 18 145/97 H 05/12/24 09:16 05/12/24 09:16 05/12/24 09:16 05/12/24 09:16 Lab / Micro Data Attestation: I reviewed the patient's lab results. Physical Exam Const oriented x3 General Appearance: cooperative Exam Limitations: no limitations HEENT normocephalic Eyes General Eye: normal appearance of both eyes Neck full ROM Resp normal respiratory effort Effort and Inspection: able to speak in complete sentences Auscultation: clear to auscultation bilaterally Cardio regular rate and regular rhythm Palpation: normal PMI Rate: regular rate Rhythm: regular rhythm GI Palpation: soft and no hepatosplenomegaly external exam normal Back/Spine Cervical Spine: cervical ROM normal Thoracic Spine / Upper Back: normal to inspection Lumbar Spine / Lower Back: normal to inspection Skin Skin Narrative: Square erythematous area around the wound from tape allergy. Open whole with positive depth and undermining towards the spine on the sebaceous cyst. Neuro oriented x3 Psych Appearance: grossly normal Speech: normal speech Thought Content: normal thought content Judgement: judgement good Debridement Note Debridement Note Wound debrided: Sebaceous cyst open wound Type of Debridement: Excisional debridement Anesthesia Used: 5% Lidocaine Gel Depth: Down to and including healthy tissue and in the subcutaneous layer Percentage of wound debrided: 100 Instrument Used: 3mm curette Severity: Fat Layer Exposed Amount of bleeding with debridement: Mild Bleeding Controlled with: Compression and gauze Patient tolerated procedure: Patient tolerated procedure well Post-Debridement Measurements and Additional Note: Post-Debridement Measurements/Treatment NAILA Bustillos Nurse 1 - General Ulcer Assessment Start: 05/12/24 09:16 Freq: Status: Active Protocol: INDIO Activity Type Activity Date Activity User E-sign Co-sign Detail Recorded Client Recorded Date Recorded By Document 05/12/24 09:16 DL [id number] 05/12/24 09:24 DL 05/12/24 09:16 WC - Today's Visit Information Type of service Follow-up Visit (Physician/HOSPITAL FELLOW ) Arrival Mode Ambulatory,Cane Transfer Assistance None Patient Identification Verified (Name & Yes ) Patient Requires Transmission-Based No Precautions Vital Signs Temperature (97.8 F-99.1 F) 97.2 F L Temperature Source Temporal Pulse Rate (60-100) 89 Pulse Location Monitor Respiratory Rate (12-18) 18 Blood Pressure (90/60-120/80) 145/97 H Blood Pressure Mean (mm Hg) 113 Source Monitor History Since Last Visit- (Skip if this is Patient's initial visit) Have you changed medications since your No last visit? Any new allergies or adverse reactions No Had a fall/change in ADL's that may No increase risk of falls Signs or symptoms of abuse and/or No neglect since last visit Have you been in the hospital since your No last visit? Has dressing in place as prescribed Yes Has compression in place as prescribed N/A Has offloadiing in place as prescribed Yes Experienced any changes in pain level or No management Pain Scale: 0-10 Numeric Is Patient Pain Free? Yes - Nurse 1 - General Ulcer Measurement Start: 05/12/24 09:16 Freq: Status: Active Protocol: Activity Type Activity Date Activity User E-sign Co-sign Detail Recorded Client Recorded Date Recorded By Document 05/12/24 09:16 DL [id number] 05/12/24 09:24 DL 05/12/24 09:16 Wound Center Nurse 1 #1 Right mid back -Current Size (cm) - Length 0.3 -Current Size (cm) - Width 0.2 -Current Size (cm) - Depth 2 -Total Square Cm 0.06 -Exudate Amt Small -Wound Margin Thickened & Rolled Under -Granulation Amt Small (1-33%) -Granulation Quality [place] -Necrosis Amt Small (1-33%) -Necrotic Tissue Type Adherent Slough -Structure Exposed N/A -Texture (Concepcion-wound Skin Appearance) Scarring -Moisture (Concepcion-wound Skin Appearance) No Abnormality -Color (Concepcion-wound Skin Appearance) No Abnormality -Temperature (Concepcion-wound Skin No Abnormality Appearance) (Pt Warm) -Tenderness on Palpation (Concepcion-wound No Skin Appearance) -Ulcer Cleansing Soap and Water -Foul Odor after Cleansing No -Anesthetic Used 5% Lidocaine Gel NAILA - Nurse 2 - General Ulcer CM Notes Start: 05/12/24 09:16 Freq: Status: Active Protocol: Activity Type Activity Date Activity User E-sign Co-sign Detail Recorded Client Recorded Date Recorded By Document 05/12/24 09:48 [facility] [id number] 05/12/24 09:52 [facility] 05/12/24 09:48 Wound Center Nurse 2 -Time 09:48 -Correct Patient Yes -Correct Side, Site, Position Yes -Correct Procedure Yes -Procedure Performed Yes -Type of Procedure Debridement -Clinical Debridement Subcutaneous -Tissue Removed Subcutaneous -Post Debridement (cm) - Length 1 -Post Debridement (cm) - Width 0.2 -Post Debridement (cm) - Depth 0.1 -Total Square (Post) (cm) 0.2 -Area of Debridement (cm) - Length 1 -Area of Debridement (cm) - Width 0.2 -Total Square (Area) (cm) 0.2 -Tunneling No -Undermining/Tunneling Yes -Undermining/Tunneling Starts (O'clock 10 ) -Undermining/Tunneling Ends (O'clock) 10 -Maximum Distance (cm) 1.5 -Circular Undermining No -Wound/Ulcer Outcome Not Healed -Ulcer Cleansing Rinsed/ Irrigated with Saline -Foul Odor after Cleansing No -Bioengineered Tissue No -Bleeding Controlled with Pressure -Treatment Response Procedure Tolerated Well -Debridement - Subq, 1st 20sq cm Yes Pain Scale: 0-10 Numeric Is Patient Pain Free? Yes NAILA - Nurse 3 - General Ulcer D/C NN Start: 05/12/24 09:16 Freq: Status: Active Protocol: Activity Type Activity Date Activity User E-sign Co-sign Detail Recorded Client Recorded Date Recorded By Document 05/12/24 10:01 DL [id number] 05/12/24 10:02 DL 05/12/24 10:01 Wound Care Center Nurse 3 #1 Right mid back -Ulcer Cleansing Rinsed/ Irrigated with Saline -Foul Odor after Cleansing No -Primary Dressing Applied Aquacel Extra, Mepilex Border -Aquacel Extra 1 -Mepilex Border 1 Treatment Response Procedure Tolerated Well Pain Scale: 0-10 Numeric Is Patient Pain Free? Yes WC - Visit Discharge Discharge Condition Stable Ambulatory Status Ambulatory,Cane Transportation Private Auto Assessment/Plan Assessment/Plan (1) Wound of right side of back: CODE(S): S21.201A - Unspecified open wound of right back wall of thorax without penetration into thoracic cavity, initial encounter QUALIFIERS: Encounter type: initial encounter Qualified Code(s): S21.201A - Unspecified open wound of right back wall of thorax without penetration into thoracic cavity, initial encounter PLAN: Wash as usual and scrub the back area. Then wash again when she comes out pat dry pack with half-inch Aquacel extra gauze moistened as applied and an absorbent XL foam dressing over top nurse friend to do the dressings daily Follow-up 2 week (2) Infected sebaceous cyst of skin: CODE(S): L72.3 - Sebaceous cyst; L08.9 - Local infection of the skin and subcutaneous tissue, unspecified (3) Nonhealing nonsurgical wound: CODE(S): T14.8XXA - Other injury of unspecified body region, initial encounter
[2024-06-02 09:35] VITALS: BP 132/83; PULSE 84; RESP 18; TEMP 36.6
--- NOTE | 2024-06-02 09:59 | PCM.WC.PN ---
History of Present Illness Date of Service: 06/02/24 Chief Complaint: Follow-up on an open wound on upper mid back History of Wound: 73-year-old white female that had a bump on her back that exploded open on her and she immediately got into her family doctor. The nurse practitioner cleaned it out and has put her on oral antibiotics and suggested she be seen at the wound center. Progress of Wound: We let her go out for 2 weeks on her visits with us because of the type of wound it is it is healing well she is got a small tunneling now only at 10:00 it is not going from 10-12 anymore. The length is shorter also so she is doing a good job of packing with the Aquacel extra and moisturizing it. Still open still has the open areas so we will continue packing and have her follow-up in 2 weeks. No sign of redness or infection looking no odor no drainage. Also suggested we could do a referral to plastics and have them look at it and see if it should be opened and grafted. It would then be surgically closed Subjective Subjective Patient is going to think about it and get back to us. Objective Data Objective Data The area is smaller in measurement it continues to be there they are frustrated with the amount of time it takes to heal Vital Signs: Vital Signs Temp Pulse Resp BP 97.8 F 84 18 132/83 H 06/02/24 09:35 06/02/24 09:35 06/02/24 09:35 06/02/24 09:35 Lab / Micro Data Attestation: I reviewed the patient's lab results. Physical Exam Const oriented x3 General Appearance: cooperative Exam Limitations: no limitations HEENT normocephalic Eyes General Eye: normal appearance of both eyes Neck full ROM Resp normal respiratory effort Effort and Inspection: able to speak in complete sentences Auscultation: clear to auscultation bilaterally Cardio regular rate and regular rhythm Palpation: normal PMI Rate: regular rate Rhythm: regular rhythm GI Palpation: soft and no hepatosplenomegaly external exam normal Back/Spine Cervical Spine: cervical ROM normal Thoracic Spine / Upper Back: normal to inspection Lumbar Spine / Lower Back: normal to inspection Skin Skin Narrative: Square erythematous area around the wound from tape allergy. Open whole with positive depth and undermining towards the spine on the sebaceous cyst. Neuro oriented x3 Psych Appearance: grossly normal Speech: normal speech Thought Content: normal thought content Judgement: judgement good Debridement Note Debridement Note Wound debrided: Sebaceous cyst open wound Type of Debridement: Excisional debridement Anesthesia Used: 5% Lidocaine Gel Depth: Down to and including healthy tissue and in the subcutaneous layer Percentage of wound debrided: 100 Instrument Used: 3mm curette Severity: Fat Layer Exposed Amount of bleeding with debridement: Mild Bleeding Controlled with: Compression and gauze Patient tolerated procedure: Patient tolerated procedure well Post-Debridement Measurements and Additional Note: Post-Debridement Measurements/Treatment - Nurse 1 - General Ulcer Assessment Start: 05/12/24 09:16 Freq: Status: Active Protocol: INDIO Activity Type Activity Date Activity User E-sign Co-sign Detail Recorded Client Recorded Date Recorded By Document 05/12/24 09:16 DL [id number] 05/12/24 09:24 DL Document 06/02/24 09:35 CP [id number] 06/02/24 09:40 CP 05/12/24 06/02/24 09:16 09:35 - Today's Visit Information Type of service Follow-up Visit Follow-up Visit (Physician/STEREO EQUIPMENT SALESPERSON (Physician/STEREO EQUIPMENT SALESPERSON ) ) Arrival Mode Ambulatory,Cane Ambulatory,Cane Transfer Assistance None None Patient Identification Verified (Name & Yes Yes ) Patient Requires Transmission-Based No No Precautions Vital Signs Temperature (97.8 F-99.1 F) 97.2 F L 97.8 F Temperature Source Temporal Temporal Pulse Rate (60-100) 89 84 Pulse Location Monitor Monitor Respiratory Rate (12-18) 18 18 Respiratory rate source Observation Blood Pressure (90/60-120/80) 145/97 H 132/83 H Blood Pressure Mean (mm Hg) 113 99 Source Monitor Monitor History Since Last Visit- (Skip if this is Patient's initial visit) Have you changed medications since your No No last visit? Any new allergies or adverse reactions No No Had a fall/change in ADL's that may No No increase risk of falls Signs or symptoms of abuse and/or No No neglect since last visit Have you been in the hospital since your No No last visit? Has dressing in place as prescribed Yes Yes Has compression in place as prescribed N/A N/A Has offloadiing in place as prescribed Yes N/A Experienced any changes in pain level or No No management Pain Scale: 0-10 Numeric Is Patient Pain Free? Yes Yes - Nurse 1 - General Ulcer Measurement Start: 05/12/24 09:16 Freq: Status: Active Protocol: Activity Type Activity Date Activity User E-sign Co-sign Detail Recorded Client Recorded Date Recorded By Document 05/12/24 09:16 DL [id number] 05/12/24 09:24 DL Document 06/02/24 09:35 CP [id number] 06/02/24 09:40 CP 05/12/24 06/02/24 09:16 09:35 Wound Center Nurse 1 #1 Right mid back -Current Size (cm) - Length 0.3 0.2 -Current Size (cm) - Width 0.2 0.2 -Current Size (cm) - Depth 2 0.1 -Total Square Cm 0.06 0.04 -Photo Taken Yes -Tunneling Position (O'clock) 10 -Tunneling Distance (cm) 1.5 -Exudate Amt Small Medium -Exudate Type Serosanguineous -Wound Margin Thickened & Distinct, Rolled Under Outline Attached -Granulation Amt Small (1-33%) Large (67-100%) -Granulation Quality [place] -Necrosis Amt Small (1-33%) None Present (0 %) -Necrotic Tissue Type Adherent Slough -Structure Exposed N/A N/A -Texture (Concepcion-wound Skin Appearance) Scarring Scarring -Moisture (Concepcion-wound Skin Appearance) No Abnormality No Abnormality -Color (Concepcion-wound Skin Appearance) No Abnormality No Abnormality -Temperature (Concepcion-wound Skin No Abnormality No Abnormality Appearance) (Pt Warm) (Pt Warm) -Tenderness on Palpation (Concepcion-wound No No Skin Appearance) -Ulcer Cleansing Soap and Water Rinsed/ Irrigated with Saline -Foul Odor after Cleansing No No -Anesthetic Used 5% Lidocaine 5% Lidocaine Gel Gel WC - Nurse 2 - General Ulcer CM Notes Start: 05/12/24 09:16 Freq: Status: Active Protocol: Activity Type Activity Date Activity User E-sign Co-sign Detail Recorded Client Recorded Date Recorded By Document 05/12/24 09:48 BMF [id number] 05/12/24 09:52 BMF Document 06/02/24 09:44 BMF [id number] 06/02/24 09:50 BMF 05/12/24 06/02/24 09:48 09:44 Wound Center Nurse 2 #1 Right mid back -Time 09:48 09:44 -Correct Patient Yes Yes -Correct Side, Site, Position Yes Yes -Correct Procedure Yes Yes -Procedure Performed Yes Yes -Type of Procedure Debridement Debridement -Clinical Debridement Subcutaneous Subcutaneous -Tissue Removed Subcutaneous Subcutaneous -Post Debridement (cm) - Length 1 1 -Post Debridement (cm) - Width 0.2 0.1 -Post Debridement (cm) - Depth 0.1 0.1 -Total Square (Post) (cm) 0.2 0.1 -Area of Debridement (cm) - Length 1 1 -Area of Debridement (cm) - Width 0.2 0.1 -Total Square (Area) (cm) 0.2 0.1 -Tunneling No Yes -Tunneling Position (O'clock) 10 -Undermining/Tunneling Yes No -Undermining/Tunneling Starts (O'clock 10 ) -Undermining/Tunneling Ends (O'clock) 10 -Maximum Distance (cm) 1.5 -Circular Undermining No No -Wound/Ulcer Outcome Not Healed Not Healed -Ulcer Cleansing Rinsed/ Rinsed/ Irrigated with Irrigated with Saline Saline -Foul Odor after Cleansing No No -Bioengineered Tissue No No -Bleeding Controlled with Pressure Pressure -Treatment Response Procedure Procedure Tolerated Well Tolerated Well -Debridement - Subq, 1st 20sq cm Yes Yes Pain Scale: 0-10 Numeric Is Patient Pain Free? Yes Yes - Nurse 3 - General Ulcer D/C NN Start: 05/12/24 09:16 Freq: Status: Active Protocol: Activity Type Activity Date Activity User E-sign Co-sign Detail Recorded Client Recorded Date Recorded By Document 05/12/24 10:01 [id number] 05/12/24 10:02 DL Document 06/02/24 09:53 [facility] [id number] 06/02/24 09:54 BM 05/12/24 06/02/24 10:01 09:53 Wound Care Center Nurse 3 #1 Right mid back -Ulcer Cleansing Rinsed/ Rinsed/ Irrigated with Irrigated with Saline Saline -Foul Odor after Cleansing No No -Primary Dressing Applied Aquacel Extra, Mepilex Border Mepilex Border -Other Dressing aquacel extra -Aquacel Extra 1 -Mepilex Border 1 1 Treatment Response Procedure Procedure Tolerated Well Tolerated Well Pain Scale: 0-10 Numeric Is Patient Pain Free? Yes Yes WC - Visit Discharge Discharge Condition Stable Stable Ambulatory Status Ambulatory,Cane Ambulatory Transportation Private Auto Private Auto Assessment/Plan Assessment/Plan (1) Wound of right side of back: CODE(S): S21.201A - Unspecified open wound of right back wall of thorax without penetration into thoracic cavity, initial encounter QUALIFIERS: Encounter type: initial encounter Qualified Code(s): S21.201A - Unspecified open wound of right back wall of thorax without penetration into thoracic cavity, initial encounter PLAN: Wash as usual and scrub the back area. Then wash again when she comes out pat dry pack with half-inch Aquacel extra gauze moistened as applied and an absorbent XL foam dressing over top nurse friend to do the dressings daily Follow-up 2 week May consult with plastics about maybe reopening and then closure (2) Infected sebaceous cyst of skin: CODE(S): L72.3 - Sebaceous cyst; L08.9 - Local infection of the skin and subcutaneous tissue, unspecified
== END 2024-06-03 23:59 | disposition home or self-care (01) ==
LOC: WC 09:30
PROVIDERS: PCP Family Medicine; Referring Provider Nurse Practitioner; Visit Provider Nurse Practitioner
DX: T81.89XA Other complications of procedures, not elsewhere classified, initial encounter (principal); L98.425 Non-pressure chronic ulcer of back with muscle involvement without evidence of necrosis; S21.201S Unspecified open wound of right back wall of thorax without penetration into thoracic cavity, sequela; Y83.8 Other surgical procedures as the cause of abnormal reaction of the patient, or of later complication, without mention of misadventure at the time of the procedure; L72.3 Sebaceous cyst; L08.9 Local infection of the skin and subcutaneous tissue, unspecified; Z79.82 Long term (current) use of aspirin; Z79.84 Long term (current) use of oral hypoglycemic drugs; Z79.899 Other long term (current) drug therapy
CPT/HCPCS: 11042; 99213; G0463

== ENCOUNTER → 2024-06-15 | Outpatient (CLI) | payer MEDICARE, OTHER, SELFPAY ==
[2024-06-15 12:55] LABS: AST(SGOT) 11 U/L (15-37); Alanine Aminotransfer ALT/SGPT 23 U/L (13-56); Albumin, Serum 3.8 g/dL (3.2-5.0); Alkaline Phosphatase 107 U/L (45-117); Anion Gap 8 (5-15); BUN 31 mg/dL (7-18); Chloride 104 mmol/L (98-107); Cholesterol 152 mg/dL (200); Creatinine, Serum 1.24 mg/dL (0.55-1.02); EST Glomerular Filtration Rate 45 mL/min (>60); Est Glom Filt Rate - Afr Amer 54 mL/min (>60); Glucose 159 mg/dL (74-106); High Density Lipoprotein 56 mg/dL; Protein, Total 7.8 g/dL (6.4-8.2); Sodium Level 136 mmol/L (136-145); Triglycerides 186 mg/dL; Very Low Density Lipoprotein 37 mg/dL (5-40)
== END | disposition home or self-care (01) ==
LOC: BIMLAB 10:56
PROVIDERS: PCP Family Medicine; Visit Provider Family Medicine
DX: E11.9 Type 2 diabetes mellitus without complications (principal); E78.5 Hyperlipidemia, unspecified
CPT/HCPCS: 36415; 80053; 80061

== ENCOUNTER 2024-06-28 14:00 | Outpatient (RCR) | payer MEDICARE, OTHER, SELFPAY ==
[2024-06-04 00:36] VITALS: BP 142/93; PULSE 98; RESP 18; TEMP 36.2
[2024-06-14 14:26] VITALS: BP 148/91; PULSE 92; RESP 17; TEMP 36.4
--- NOTE | 2024-06-14 17:34 | PN.PCM_ITS ---
History of Present Illness Date of Service: 06/14/24 Chief Complaint: Follow-up on an open wound on upper mid back History of Wound: Jojo Gamboa is a delightful 73-year-old female who presents for a wound on her right upper back slightly off midline that developed a couple months ago around a draining likely epidermal inclusion cyst. She is referred to me for surgical options as the wound tracks medially and appears to have a roof that is inhibiting healing. Objective Data Objective Data Vital Signs: Vital Signs Temp Pulse Resp BP 97.6 F L 92 17 148/91 H 06/14/24 14:26 06/14/24 14:26 06/14/24 14:26 06/14/24 14:26 Charges/Coding Visit Charges Office Visits / Consults: [id number] OV L4 New 45min Procedures Integumentary 111xxx-113xx: 10162 Kacy subq tissue 20 sq cm/< Physical Exam Narrative Right upper central paramedian back wound that is approximately 1 x 2 cm and tracks 2 cm superior medially superficially. Slight serous drainage but no induration. Appears to be a sinus tract over a previous epidermal inclusion cyst just medial to the wound edge. The wound tracks underneath the sinus Const alert and oriented x3 Debridement Note Debridement Note Wound debrided: Right mid back Laterality: Right Type of Debridement: Excisional debridement Anesthesia Used: 4% Lidocaine Solution Depth: in the subcutaneous layer Percentage of wound debrided: 100 Instrument Used: 5mm curette Severity: Fat Layer Exposed Amount of bleeding with debridement: Mild Bleeding Controlled with: Compression and gauze Patient tolerated procedure: Patient tolerated procedure well Post-Debridement Measurements and Additional Note: Post-Debridement Measurements/Treatment - Nurse 1 - General Ulcer Assessment Start: 06/14/24 14:26 Freq: Status: Active Protocol: NAILA.LOWDANIELT Activity Type Activity Date Activity User E-sign Co-sign Detail Recorded Client Recorded Date Recorded By Document 06/14/24 14:26 ML [id number] 06/14/24 14:33 ML 06/14/24 14:26 - Today's Visit Information Type of service Follow-up Visit (Physician/SUPERVISOR [employer] ) Arrival Mode Ambulatory,Cane Transfer Assistance None Patient Identification Verified (Name & Yes ) Patient Requires Transmission-Based No Precautions Vital Signs Temperature (97.8 F-99.1 F) 97.6 F L Temperature Source Temporal Pulse Rate (60-100) 92 Respiratory Rate (12-18) 17 Respiratory rate source Observation Blood Pressure (90/60-120/80) 148/91 H Blood Pressure Mean (mm Hg) 110 Source Monitor Position Sitting History Since Last Visit- (Skip if this is Patient's initial visit) Have you changed medications since your No last visit? Any new allergies or adverse reactions No Had a fall/change in ADL's that may No increase risk of falls Signs or symptoms of abuse and/or No neglect since last visit Has dressing in place as prescribed Yes Has compression in place as prescribed N/A Has offloadiing in place as prescribed N/A Experienced any changes in pain level or No management Pain Scale: 0-10 Numeric Is Patient Pain Free? Yes - Nurse 1 - General Ulcer Measurement Start: 06/14/24 14:26 Freq: Status: Active Protocol: Activity Type Activity Date Activity User E-sign Co-sign Detail Recorded Client Recorded Date Recorded By Document 06/14/24 14:26 [id number] 06/14/24 14:33 ML 06/14/24 14:26 Wound Center Nurse 1 #1 Right mid back -Combined with (Name of Wound-Exactly 0.1 as it is documented) -Current Size (cm) - Length 0.1 -Current Size (cm) - Width 0.3 -Total Square Cm 0.03 -Exudate Amt Medium -Exudate Type Serosanguineous -Wound Margin Distinct, Outline Attached -Granulation Amt Medium (34-66%) -Slough/Fibrin Yes -Necrosis Amt Medium (34-66%) -Texture (Concepcion-wound Skin Appearance) Assessed -Moisture (Concepcion-wound Skin Appearance) Assessed -Color (Concepcion-wound Skin Appearance) Assessed -Temperature (Concepcion-wound Skin No Abnormality Appearance) (Pt Warm) -Tenderness on Palpation (Concepcion-wound No Skin Appearance) -Ulcer Cleansing Rinsed/ Irrigated with Saline -Foul Odor after Cleansing No -Anesthetic Used 5% Lidocaine Gel - Nurse 2 - General Ulcer CM Notes Start: 06/14/24 14:26 Freq: Status: Active Protocol: Activity Type Activity Date Activity User E-sign Co-sign Detail Recorded Client Recorded Date Recorded By Document 06/14/24 15:08 [id number] 06/14/24 15:11 06/14/24 15:08 Wound Center Nurse 2 -Time 15:09 -Correct Patient Yes -Correct Side, Site, Position Yes -Correct Procedure Yes -Procedure Performed Yes -Type of Procedure Debridement -Clinical Debridement Subcutaneous -Tissue Removed Subcutaneous -Post Debridement (cm) - Length 0.5 -Post Debridement (cm) - Width 0.2 -Post Debridement (cm) - Depth 0.1 -Total Square (Post) (cm) 0.10 -Area of Debridement (cm) - Length 0.5 -Area of Debridement (cm) - Width 0.2 -Total Square (Area) (cm) 0.10 -Tunneling Yes -Tunneling Position (O'clock) 10 -Tunneling Distance (cm) 2.0 -Undermining/Tunneling No -Circular Undermining No -Wound/Ulcer Outcome Not Healed -Ulcer Cleansing Rinsed/ Irrigated with Saline -Foul Odor after Cleansing No -Bioengineered Tissue No -Bleeding Controlled with Pressure -Treatment Response Procedure Tolerated Well -Offloading No -Debridement - Subq, 1st 20sq cm Yes Pain Scale: 0-10 Numeric Is Patient Pain Free? Yes - Nurse 3 - General Ulcer D/C NN Start: 06/14/24 14:26 Freq: Status: Active Protocol: Activity Type Activity Date Activity User E-sign Co-sign Detail Recorded Client Recorded Date Recorded By Document 06/14/24 15:31 [facility] [id number] 06/14/24 15:32 [facility] 06/14/24 15:31 Wound Care Center Nurse 3 #1 Right mid back -Ulcer Cleansing Rinsed/ Irrigated with Saline -Foul Odor after Cleansing No -Primary Dressing Applied Aquacel Extra, Mepilex Border -Aquacel Extra 1 -Mepilex Border 1 Treatment Response Procedure Tolerated Well Pain Scale: 0-10 Numeric Is Patient Pain Free? Yes WC - Visit Discharge Discharge Condition Stable Ambulatory Status Ambulatory,Cane Transportation Private Auto Accompanied by friend Assessment/Plan Assessment/Plan (1) Wound of right side of back: CODE(S): S21.201A - Unspecified open wound of right back wall of thorax without penetration into thoracic cavity, initial encounter QUALIFIERS: Encounter type: initial encounter Qualified Code(s): S21.201A - Unspecified open wound of right back wall of thorax without penetration into thoracic cavity, initial encounter PLAN: I believe this to be wound around an epidermal inclusion cyst that may have gotten infected and expressed itself. The cyst wall is likely within the wound cavity and inhibiting healthy tissue from developing and healing the wound. I think she would benefit from either unroofing over the wound to keep it open and remove the tunnel for dressing changes, versus complete excision and closure which is another option. I discussed with her the risk benefits and alternatives of these options. She would like to defer treatment at this time and think about these options and discuss them with me at a follow-up visit, which I think is very appropriate, as it is possible the wound will heal on its own anyways. Follow-up in 1 to 2-week
[2024-06-28 14:01] VITALS: BP 145/87; PULSE 102; RESP 18; TEMP 36.2
--- NOTE | 2024-06-28 16:45 | PCM.WC.PN ---
History of Present Illness Date of Service: 06/28/24 Chief Complaint: Follow-up on an open wound on upper mid back History of Wound: Jojo Gamboa is a delightful 73-year-old female who presents for a wound on her right upper back slightly off midline that developed a couple months ago around a draining likely epidermal inclusion cyst. She is referred to me for surgical options as the wound tracks medially and appears to have a roof that is inhibiting healing. Subjective Subjective Current encounter, 28 Jun 2024: Doing well overall with dressing changes, her friend has been helping her. No fevers or chills. Objective Data Objective Data Vital Signs: Vital Signs Temp Pulse Resp BP 97.2 F L 102 H 18 145/87 H 06/28/24 14:01 06/28/24 14:01 06/28/24 14:01 06/28/24 14:01 Charges/Coding Procedures Integumentary [id number]: 64805 Kacy subq tissue 20 sq cm/< Physical Exam Narrative Right upper central paramedian back wound that is approximately 1 x 2.5 cm and tracks 2.5 cm superior medially superficially under the skin at 11 o'clock. 0.2 cm deep. Slight serous drainage but no induration. Appears to be a sinus tract over a previous epidermal inclusion cyst just medial to the wound edge. The wound tracks underneath the sinus Const alert and oriented x3 Debridement Note Debridement Note Wound debrided: Right upper back wound Laterality: Right Wound Grade/Stage: into subcutaneous tissue (stage 3) Type of Debridement: Excisional debridement Anesthesia Used: 4% Lidocaine Solution Depth: in the subcutaneous layer Percentage of wound debrided: 100 Instrument Used: 7mm curette Severity: Fat Layer Exposed Amount of bleeding with debridement: Mild Bleeding Controlled with: Compression and gauze Patient tolerated procedure: Patient tolerated procedure well Post-Debridement Measurements and Additional Note: Post-Debridement Measurements/Treatment NAILA - Nurse 1 - General Ulcer Assessment Start: 06/14/24 14:26 Freq: Status: Active Protocol: INDIO Activity Type Activity Date Activity User E-sign Co-sign Detail Recorded Client Recorded Date Recorded By Document 06/14/24 14:26 ML [id number] 06/14/24 14:33 ML Document 06/28/24 14:01 DL [id number] 06/28/24 14:05 DL 06/14/24 06/28/24 14:26 14:01 - Today's Visit Information Type of service Follow-up Visit Follow-up Visit (Physician/CANCER REGISTRY COORDINATOR (Physician/CANCER REGISTRY COORDINATOR ) ) Arrival Mode Ambulatory,Cane Ambulatory Transfer Assistance None None Patient Identification Verified (Name & Yes Yes ) Patient Requires Transmission-Based No No Precautions Vital Signs Temperature (97.8 F-99.1 F) 97.6 F L 97.2 F L Temperature Source Temporal Temporal Pulse Rate (60-100) 92 102 H Pulse Location Monitor Respiratory Rate (12-18) 17 18 Respiratory rate source Observation Observation Blood Pressure (90/60-120/80) 148/91 H 145/87 H Blood Pressure Mean (mm Hg) 110 106 Source Monitor Monitor Position Sitting History Since Last Visit- (Skip if this is Patient's initial visit) Have you changed medications since your No No last visit? Any new allergies or adverse reactions No No Had a fall/change in ADL's that may No No increase risk of falls Signs or symptoms of abuse and/or No No neglect since last visit Have you been in the hospital since your No last visit? Has dressing in place as prescribed Yes Yes Has compression in place as prescribed N/A Has offloadiing in place as prescribed N/A Yes Experienced any changes in pain level or No management Pain Scale: 0-10 Numeric Is Patient Pain Free? Yes Yes - Nurse 1 - General Ulcer Measurement Start: 06/14/24 14:26 Freq: Status: Active Protocol: Activity Type Activity Date Activity User E-sign Co-sign Detail Recorded Client Recorded Date Recorded By Document 06/14/24 14:26 ML [id number] 06/14/24 14:33 ML Document 06/28/24 14:01 DL [id number] 06/28/24 14:05 DL 06/14/24 06/28/24 14:26 14:01 Wound Center Nurse 1 #1 Right mid back -Combined with (Name of Wound-Exactly 0.1 as it is documented) -Current Size (cm) - Length 0.1 0.4 -Current Size (cm) - Width 0.3 0.3 -Current Size (cm) - Depth 2 -Total Square Cm 0.03 0.12 -Undermining/Tunneling Starts (O'clock 10 ) -Undermining/Tunneling Ends (O'clock) 11 -Maximum Distance (cm) 2 -Exudate Amt Medium Small -Exudate Type Serosanguineous Serosanguineous -Wound Margin Distinct, Distinct, Outline Outline Attached Attached -Granulation Amt Medium (34-66%) Small (1-33%) -Granulation Quality Red -Slough/Fibrin Yes -Necrosis Amt Medium (34-66%) None Present (0 %) -Structure Exposed N/A -Texture (Concepcion-wound Skin Appearance) Assessed Scarring -Moisture (Concepcion-wound Skin Appearance) Assessed No Abnormality -Color (Concepcion-wound Skin Appearance) Assessed No Abnormality -Temperature (Concepcion-wound Skin No Abnormality No Abnormality Appearance) (Pt Warm) (Pt Warm) -Tenderness on Palpation (Concepcion-wound No No Skin Appearance) -Ulcer Cleansing Rinsed/ Soap and Water Irrigated with Saline -Foul Odor after Cleansing No No -Anesthetic Used 5% Lidocaine 5% Lidocaine Gel Gel WC - Nurse 2 - General Ulcer CM Notes Start: 06/14/24 14:26 Freq: Status: Active Protocol: Activity Type Activity Date Activity User E-sign Co-sign Detail Recorded Client Recorded Date Recorded By Document 06/14/24 15:08 [id number] 06/14/24 15:11 Document 06/28/24 14:11 [id number] 06/28/24 14:15 06/14/24 06/28/24 15:08 14:11 Wound Center Nurse 2 #1 Right mid back -Time 15:09 14:14 -Correct Patient Yes Yes -Correct Side, Site, Position Yes Yes -Correct Procedure Yes Yes -Procedure Performed Yes Yes -Type of Procedure Debridement Debridement -Clinical Debridement Subcutaneous Subcutaneous -Tissue Removed Subcutaneous Subcutaneous -Post Debridement (cm) - Length 0.5 2.5 -Post Debridement (cm) - Width 0.2 1.0 -Post Debridement (cm) - Depth 0.1 0.2 -Total Square (Post) (cm) 0.10 2.50 -Area of Debridement (cm) - Length 0.5 2.5 -Area of Debridement (cm) - Width 0.2 1.0 -Total Square (Area) (cm) 0.10 2.50 -Tunneling Yes Yes -Tunneling Position (O'clock) 10 11 -Tunneling Distance (cm) 2.0 2.5 -Undermining/Tunneling No No -Circular Undermining No No -Wound/Ulcer Outcome Not Healed Not Healed -Ulcer Cleansing Rinsed/ Rinsed/ Irrigated with Irrigated with Saline Saline -Foul Odor after Cleansing No No -Bioengineered Tissue No No -Bleeding Controlled with Pressure Pressure -Treatment Response Procedure Procedure Tolerated Well Tolerated Well -Offloading No No -Debridement - Subq, 1st 20sq cm Yes Yes Pain Scale: 0-10 Numeric Is Patient Pain Free? Yes Yes - Nurse 3 - General Ulcer D/C NN Start: 06/14/24 14:26 Freq: Status: Active Protocol: Activity Type Activity Date Activity User E-sign Co-sign Detail Recorded Client Recorded Date Recorded By Document 06/14/24 15:31 [facility] [id number] 06/14/24 15:32 [facility] Document 06/28/24 14:28 [id number] 06/28/24 14:29 06/14/24 06/28/24 15:31 14:28 Wound Care Center Nurse 3 #1 Right mid back -Ulcer Cleansing Rinsed/ Rinsed/ Irrigated with Irrigated with Saline Saline -Foul Odor after Cleansing No No -Primary Dressing Applied Aquacel Extra, Aquacel AG 2x2, Mepilex Border Mepilex Border -Aquacel Extra 1 -Aquacel AG 2x2 1 -Mepilex Border 1 1 Treatment Response Procedure Tolerated Well Pain Scale: 0-10 Numeric Is Patient Pain Free? Yes Yes - Visit Discharge Discharge Condition Stable Stable Ambulatory Status Ambulatory,Cane Ambulatory, Walker Transportation Private Auto Private Auto Accompanied by friend friend Medication Reconcilliation completed & Yes provided to patient/care provider Clinical Summary of Care Provided Yes Assessment/Plan Assessment/Plan (1) Wound of right side of back: CODE(S): S21.201A - Unspecified open wound of right back wall of thorax without penetration into thoracic cavity, initial encounter QUALIFIERS: Encounter type: initial encounter Qualified Code(s): S21.201A - Unspecified open wound of right back wall of thorax without penetration into thoracic cavity, initial encounter PLAN: I believe this to be wound around an epidermal inclusion cyst that may have gotten infected and expressed itself. The cyst wall is likely within the wound cavity and inhibiting healthy tissue from developing and healing the wound. I think she would benefit from either unroofing over the wound to keep it open and remove the tunnel for dressing changes, versus complete excision and closure which is another option. I discussed with her the risk benefits and alternatives of these options. She would like to defer treatment at this time and think about these options and discuss them with me at a follow-up visit, which I think is very appropriate, as it is possible the wound will heal on its own anyways. Plan from 28 Jun 2024: I think she needs the wound opened up to promote wound healing. Needs to be undroofed. Talked to her about doing this in clinic and she would like to wait, but will consider in a couple of weeks. Continue current wound care regimen with packing.
== END 2024-07-03 23:59 | disposition home or self-care (01) ==
LOC: WC 14:00
PROVIDERS: PCP Family Medicine; Referring Provider Nurse Practitioner; Visit Provider Surgery Plastic and Reconstructive Surgery
DX: L89.113 Pressure ulcer of right upper back, stage 3 (principal); L72.0 Epidermal cyst; Z79.82 Long term (current) use of aspirin; Z79.84 Long term (current) use of oral hypoglycemic drugs; Z79.899 Other long term (current) drug therapy
CPT/HCPCS: 11042

== ENCOUNTER 2024-07-26 13:00 | Outpatient (RCR) | payer MEDICARE, OTHER, SELFPAY ==
[2024-07-04 00:46] VITALS: BP 142/93; PULSE 98; RESP 18; TEMP 36.2
[2024-07-12 15:34] VITALS: BP 149/93; PULSE 93; RESP 16; TEMP 35.8
--- NOTE | 2024-07-12 16:30 | UL_PTH ---
PATIENT: SANDRITA PRYOR LOC: U#:[id number] AGE/SX: 74/F ROOM: RE07/26/[address]: Dr. Antonio Dukes MD : 1950 BED: DIS: 08/03/2024 SPEC #: [id number] RECD: 07/13/24 10:46 STATUS: TETO PAVON #: [id number] KRISTIAN: 07/12/24 16:[address]: Antonio Dukes DEPT: SURGICAL PATHOLOGY RECD BY: Tanika Rasmussen ENTERED: 07/13/24 12:07 SP TYPE: ULCER OTHR DR: Dr. 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 No evidence of malignancy. Negative for fungal organisms. AM. 07/14/2024 COMMENT GMS stain with matched control supports the diagnosis. MICROSCOPIC DESCRIPTION Slides are reviewed. GROSS DESCRIPTION Received in fixative is one container labeled with the patient's name and designated Back ulcer. The specimen consists of an irregular fragment of white-goldstein soft tissue measuring 1.2 x 0.7 x 0.4cm. The specimen is bisected and totally submitted in one cassette. AM. 07/13/2024 TC:3 CPT:00048, 36079
--- NOTE | 2024-07-12 17:42 | PCM.WC.PN ---
History of Present Illness Date of Service: 07/12/24 Chief Complaint: Follow-up on an open wound on upper mid back History of Wound: Jojo Gamboa is a delightful 73-year-old female who presents for a wound on her right upper back slightly off midline that developed a couple months ago around a draining likely epidermal inclusion cyst. She is referred to me for surgical options as the wound tracks medially and appears to have a roof that is inhibiting healing. Subjective Subjective 28 Jun 2024: Doing well overall with dressing changes, her friend has been helping her. No fevers or chills. Current encounter, 12 Jul 2024: Unable to pack wound well. Reports trouble with packing. Objective Data Objective Data Vital Signs: Vital Signs Temp Pulse Resp BP 96.4 F L 93 16 149/93 H 07/12/24 15:34 07/12/24 15:34 07/12/24 15:34 07/12/24 15:34 Charges/Coding Procedures Integumentary 111xxx-113xx: 12533 Kacy subq tissue 20 sq cm/< Physical Exam Narrative Right upper central paramedian back wound that is approximately 1 x 1 cm and tracks 2 cm superior medially superficially under the skin at 11 o'clock. 0.2 cm deep. Slight serous drainage but no induration. Appears to be a sinus tract over a previous epidermal inclusion cyst just medial to the wound edge. The wound tracks underneath the sinus Const alert and oriented x3 Debridement Note Debridement Note Wound debrided: Upper back wound (opened today for better dressings and also biopsied). Laterality: Right (Right upper back ) Type of Debridement: Excisional debridement Anesthesia Used: 4% Lidocaine Solution (and 5 cc of 1% lidocaine with 1:200,000 epinephrine ) Depth: in the subcutaneous layer Percentage of wound debrided: 100 Instrument Used: #15 blade Severity: Fat Layer Exposed Amount of bleeding with debridement: Mild Bleeding Controlled with: Silver Nitrate Patient tolerated procedure: Patient tolerated procedure well Debridement Free Text: 15 blade used to cut off the skin overlying the wound and sent as an incisional biopsy. Post-Debridement Measurements and Additional Note: Post-Debridement Measurements/Treatment NAILA - Nurse 1 - General Ulcer Assessment Start: 07/12/24 15:33 Freq: Status: Active Protocol: INDIO Activity Type Activity Date Activity User E-sign Co-sign Detail Recorded Client Recorded Date Recorded By Document 07/12/24 15:34 [facility] [id number] 07/12/24 15:37 [facility] 07/12/24 15:34 - Today's Visit Information Type of service Follow-up Visit (Physician/DATA MINING ANALYST ) Arrival Mode Cane Transfer Assistance None Patient Identification Verified (Name & Yes ) Patient Requires Transmission-Based No Precautions Vital Signs Temperature (97.8 F-99.1 F) 96.4 F L Temperature Source Temporal Pulse Rate (60-100) 93 Pulse Location Monitor Respiratory Rate (12-18) 16 Respiratory rate source Observation Blood Pressure (90/60-120/80) 149/93 H Blood Pressure Mean (mm Hg) 111 Source Monitor Position Semi-Fowlers Blood Pressure Location Right Arm History Since Last Visit- (Skip if this is Patient's initial visit) Have you changed medications since your No last visit? Any new allergies or adverse reactions No Had a fall/change in ADL's that may No increase risk of falls Signs or symptoms of abuse and/or No neglect since last visit Have you been in the hospital since your No last visit? Has dressing in place as prescribed Yes Has compression in place as prescribed N/A Has offloadiing in place as prescribed N/A Experienced any changes in pain level or No management Pain Scale: 0-10 Numeric Is Patient Pain Free? Yes - Nurse 1 - General Ulcer Measurement Start: 07/12/24 15:33 Freq: Status: Active Protocol: Activity Type Activity Date Activity User E-sign Co-sign Detail Recorded Client Recorded Date Recorded By Document 07/12/24 15:34 [facility] [id number] 07/12/24 15:37 [facility] 07/12/24 15:34 Wound Center Nurse 1 #1 Right mid back -Current Size (cm) - Length 0.1 -Current Size (cm) - Width 0.4 -Current Size (cm) - Depth 0.1 -Total Square Cm 0.04 -Tunneling Yes -Tunneling Position (O'clock) 11 -Tunneling Distance (cm) 0.4 -Exudate Amt Small -Wound Margin Distinct, Outline Attached -Granulation Amt None Present (0 %) -Slough/Fibrin No -Necrosis Amt None Present (0 %) -Texture (Concepcion-wound Skin Appearance) Assessed -Moisture (Concepcion-wound Skin Appearance) Assessed -Color (Concepcion-wound Skin Appearance) Assessed -Temperature (Concepcion-wound Skin No Abnormality Appearance) (Pt Warm) -Tenderness on Palpation (Concepcion-wound No Skin Appearance) -Ulcer Cleansing Rinsed/ Irrigated with Saline -Foul Odor after Cleansing No -Anesthetic Used 5% Lidocaine Gel - Nurse 2 - General Ulcer CM Notes Start: 07/12/24 15:33 Freq: Status: Active Protocol: Activity Type Activity Date Activity User E-sign Co-sign Detail Recorded Client Recorded Date Recorded By Document 07/12/24 16:34 [id number] [id number] 07/12/24 16:37 07/12/24 16:34 Wound Center Nurse 2 -Time 16:35 -Correct Patient Yes -Correct Side, Site, Position Yes -Correct Procedure Yes -Procedure Performed Yes -Type of Procedure Debridement -Clinical Debridement Subcutaneous -Tissue Removed Subcutaneous -Post Debridement (cm) - Length 1.5 -Post Debridement (cm) - Width 1.5 -Post Debridement (cm) - Depth 1.0 -Total Square (Post) (cm) 2.25 -Area of Debridement (cm) - Length 1.5 -Area of Debridement (cm) - Width 1.5 -Total Square (Area) (cm) 2.25 -Tunneling No -Undermining/Tunneling No -Circular Undermining No -Wound/Ulcer Outcome Not Healed -Ulcer Cleansing Rinsed/ Irrigated with Saline -Foul Odor after Cleansing No -Bioengineered Tissue No -Bleeding Controlled with Pressure -Treatment Response Procedure Tolerated Well -Offloading No -Debridement - Subq, 1st 20sq cm Yes -I&D / Paring / Biopsy I&D abscess - single or simple Pain Scale: 0-10 Numeric Is Patient Pain Free? Yes - Nurse 3 - General Ulcer D/C NN Start: 07/12/24 15:33 Freq: Status: Active Protocol: Activity Type Activity Date Activity User E-sign Co-sign Detail Recorded Client Recorded Date Recorded By Document 07/12/24 16:42 KW [id number] 07/12/24 16:43 KW 07/12/24 16:42 Wound Care Center Nurse 3 #1 Right mid back -Primary Dressing Applied Mepilex Border -Other Dressing pack with gauze -Primary Dressing Covered/Secured with Dry Gauze, Secured with Tape -Mepilex Border 1 Pain Scale: 0-10 Numeric Is Patient Pain Free? Yes WC - Visit Discharge Discharge Condition Stable Ambulatory Status Ambulatory Transportation Private Auto Medication Reconcilliation completed & No provided to patient/care provider Clinical Summary of Care Provided Yes Assessment/Plan Assessment/Plan (1) Wound of right side of back: CODE(S): S21.201A - Unspecified open wound of right back wall of thorax without penetration into thoracic cavity, initial encounter QUALIFIERS: Encounter type: initial encounter Qualified Code(s): S21.201A - Unspecified open wound of right back wall of thorax without penetration into thoracic cavity, initial encounter PLAN: Wound opened today and biopsied. Tolerated procedure well. F/u in 1 week for wound check. Continue dressing changes and f/u biopsy
--- NOTE | 2024-07-13 14:55 | WC ---
PHOTO 07/12/24 RIGHT MID BACK
[2024-07-19 14:50] VITALS: BP 162/93; PULSE 87; RESP 18; TEMP 36.2
--- NOTE | 2024-07-19 17:22 | PCM.WC.PN ---
History of Present Illness Date of Service: 07/19/24 Chief Complaint: Follow-up on an open wound on upper mid back History of Wound: History of Wound: Jojo Gamboa is a delightful 73-year-old female who presents for a wound on her right upper back slightly off midline that developed a couple months ago around a draining likely epidermal inclusion cyst. She is referred to me for surgical options as the wound tracks medially and appears to have a roof that is inhibiting healing. Subjective Subjective 28 Jun 2024: Doing well overall with dressing changes, her friend has been helping her. No fevers or chills. 12 Jul 2024: Unable to pack wound well. Reports trouble with packing. Current encounter, 19 Jul 2024: Doing well with wound care. Discussed pathology from biopsy (negative for malignancy). Objective Data Objective Data Vital Signs: Vital Signs Temp Pulse Resp BP 97.1 F L 87 18 162/93 H 07/19/24 14:50 07/19/24 14:50 07/19/24 14:50 07/19/24 14:50 Charges/Coding Procedures Integumentary 111xxx-113xx: 60949 Kacy musc/fascia 20 sq cm/< Physical Exam Narrative Wound open and granulating. There was some necrotic fibrinous exudate at the base of the wound today. Wound measured 1.5 x 2 cm and was 1 cm deep. No bleeding. Const alert and oriented x3 Debridement Note Debridement Note Wound debrided: Upper back wound Laterality: Right Type of Debridement: Excisional debridement Anesthesia Used: 4% Lidocaine Solution Depth: - (Down to the fascia ) Percentage of wound debrided: 100 Instrument Used: 5mm curette Severity: Fat Layer Exposed Amount of bleeding with debridement: Mild Bleeding Controlled with: Compression and gauze Patient tolerated procedure: Patient tolerated procedure well Post-Debridement Measurements and Additional Note: Post-Debridement Measurements/Treatment NAILA - Nurse 1 - General Ulcer Assessment Start: 07/12/24 15:33 Freq: Status: Active Protocol: INDIO Activity Type Activity Date Activity User E-sign Co-sign Detail Recorded Client Recorded Date Recorded By Document 07/12/24 15:34 BM [id number] 07/12/24 15:37 BM Document 07/19/24 14:50 DL [id number] 07/19/24 14:55 DL 07/12/24 07/19/24 15:34 14:50 - Today's Visit Information Type of service Follow-up Visit Follow-up Visit (Physician/MEDICAL TRANSCRIPTION RADIOLOGY (Physician/MEDICAL TRANSCRIPTION RADIOLOGY ) ) Arrival Mode Cane Ambulatory Transfer Assistance None None Patient Identification Verified (Name & Yes Yes ) Patient Requires Transmission-Based No No Precautions Vital Signs Temperature (97.8 F-99.1 F) 96.4 F L 97.1 F L Temperature Source Temporal Temporal Pulse Rate (60-100) 93 87 Pulse Location Monitor Monitor Respiratory Rate (12-18) 16 18 Respiratory rate source Observation Observation Blood Pressure (90/60-120/80) 149/93 H 162/93 H Blood Pressure Mean (mm Hg) 111 116 Source Monitor Monitor Position Semi-Fowlers Blood Pressure Location Right Arm History Since Last Visit- (Skip if this is Patient's initial visit) Have you changed medications since your No No last visit? Any new allergies or adverse reactions No No Had a fall/change in ADL's that may No No increase risk of falls Signs or symptoms of abuse and/or No No neglect since last visit Have you been in the hospital since your No No last visit? Has dressing in place as prescribed Yes Yes Has compression in place as prescribed N/A N/A Has offloadiing in place as prescribed N/A N/A Experienced any changes in pain level or No No management Pain Scale: 0-10 Numeric Is Patient Pain Free? Yes Yes - Nurse 1 - General Ulcer Measurement Start: 07/12/24 15:33 Freq: Status: Active Protocol: Activity Type Activity Date Activity User E-sign Co-sign Detail Recorded Client Recorded Date Recorded By Document 07/12/24 15:34 [facility] [id number] 07/12/24 15:37 [facility] Document 07/19/24 14:50 [id number] 07/19/24 14:55 DL 07/12/24 07/19/24 15:34 14:50 Wound Center Nurse 1 #1 Right mid back -Current Size (cm) - Length 0.1 2 -Current Size (cm) - Width 0.4 1.7 -Current Size (cm) - Depth 0.1 1 -Total Square Cm 0.04 3.4 -Tunneling Yes -Tunneling Position (O'clock) 11 -Tunneling Distance (cm) 0.4 -Exudate Amt Small Medium -Exudate Type Serosanguineous -Wound Margin Distinct, Distinct, Outline Outline Attached Attached -Granulation Amt None Present (0 Medium (34-66%) %) -Granulation Quality Red -Slough/Fibrin No -Necrosis Amt None Present (0 Medium (34-66%) %) -Necrotic Tissue Type Adherent Slough -Structure Exposed N/A -Texture (Concepcion-wound Skin Appearance) Assessed Scarring -Moisture (Concepcion-wound Skin Appearance) Assessed No Abnormality -Color (Concepcion-wound Skin Appearance) Assessed Erythema -Temperature (Concepcion-wound Skin No Abnormality No Abnormality Appearance) (Pt Warm) (Pt Warm) -Tenderness on Palpation (Concepcion-wound No No Skin Appearance) -Ulcer Cleansing Rinsed/ Soap and Water Irrigated with Saline -Foul Odor after Cleansing No No -Anesthetic Used 5% Lidocaine 5% Lidocaine Gel Gel WC - Nurse 2 - General Ulcer CM Notes Start: 07/12/24 15:33 Freq: Status: Active Protocol: Activity Type Activity Date Activity User E-sign Co-sign Detail Recorded Client Recorded Date Recorded By Document 07/12/24 16:34 [id number] 07/12/24 16:37 Edit Result 07/12/24 16:34 JF (1) 0000 07/13/24 16:17 JF Document 07/19/24 15:07 [id number] 07/19/24 15:10 JF (1) #1 Right mid back - I&D / Paring / Biopsy I&D abscess - => Tangential bx skin single or simple => (eg:shave,scoop, => saucerize,curette) => , single lesion 07/12/24 07/19/24 16:34 15:07 Wound Center Nurse 2 #1 Right mid back -Time 16:35 15:09 -Correct Patient Yes Yes -Correct Side, Site, Position Yes Yes -Correct Procedure Yes Yes -Procedure Performed Yes Yes -Type of Procedure Debridement Debridement -Clinical Debridement Subcutaneous Muscle / Fascia -Tissue Removed Subcutaneous Muscle -Post Debridement (cm) - Length 1.5 2.0 -Post Debridement (cm) - Width 1.5 1.5 -Post Debridement (cm) - Depth 1.0 1.0 -Total Square (Post) (cm) 2.25 3.00 -Area of Debridement (cm) - Length 1.5 2.0 -Area of Debridement (cm) - Width 1.5 1.5 -Total Square (Area) (cm) 2.25 3.00 -Tunneling No No -Undermining/Tunneling No No -Circular Undermining No No -Wound/Ulcer Outcome Not Healed Not Healed -Ulcer Cleansing Rinsed/ Rinsed/ Irrigated with Irrigated with Saline Saline -Foul Odor after Cleansing No No -Bioengineered Tissue No No -Bleeding Controlled with Pressure Pressure -Treatment Response Procedure Procedure Tolerated Well Tolerated Well -Offloading No No -Debridement - Subq, 1st 20sq cm Yes -Debridement - Muscle / Fascia, 1st Yes 20sq cm -I&D / Paring / Biopsy Tangential bx skin (eg:shave, scoop, saucerize, curette), single lesion Pain Scale: 0-10 Numeric Is Patient Pain Free? Yes Yes - Nurse 3 - General Ulcer D/C NN Start: 07/12/24 15:33 Freq: Status: Active Protocol: Activity Type Activity Date Activity User E-sign Co-sign Detail Recorded Client Recorded Date Recorded By Document 07/12/24 16:42 [id number] 07/12/24 16:43 07/12/24 16:42 Wound Care Center Nurse 3 #1 Right mid back -Primary Dressing Applied Mepilex Border -Other Dressing pack with gauze -Primary Dressing Covered/Secured with Dry Gauze, Secured with Tape -Mepilex Border 1 Pain Scale: 0-10 Numeric Is Patient Pain Free? Yes - Visit Discharge Discharge Condition Stable Ambulatory Status Ambulatory Transportation Private Auto Medication Reconcilliation completed & No provided to patient/care provider Clinical Summary of Care Provided Yes Assessment/Plan Assessment/Plan (1) Decubitus ulcer of back: CODE(S): L89.109 - Pressure ulcer of unspecified part of back, unspecified stage PLAN: Debrided again today. Doing well. Needs to remain open for wound care. Continue the Alginate/collagen daily (Fibracol) F/u in 2 weeks in clinic to check the progress.
[2024-07-26 13:28] VITALS: BP 146/90; PULSE 105; RESP 16; TEMP 35.9
--- NOTE | 2024-07-26 14:03 | PN.PCM_ITS ---
History of Present Illness Date of Service: 07/26/24 Chief Complaint: Follow-up on an open wound on upper mid back History of Wound: History of Wound: Jojo Gamboa is a delightful 73-year-old female who presents for a wound on her right upper back slightly off midline that developed a couple months ago around a draining likely epidermal inclusion cyst. She is referred to me for surgical options as the wound tracks medially and appears to have a roof that is inhibiting healing. Subjective Subjective 28 Jun 2024: Doing well overall with dressing changes, her friend has been helping her. No fevers or chills. 12 Jul 2024: Unable to pack wound well. Reports trouble with packing. 19 Jul 2024: Doing well with wound care. Discussed pathology from biopsy (negative for malignancy). Current encounter, 26 Jul 2024: Doing well. Packing going well. Objective Data Objective Data Vital Signs: Vital Signs Temp Pulse Resp BP O2 Del Method 96.6 F L 105 H 16 146/90 H Room Air 07/26/24 13:28 07/26/24 13:28 07/26/24 13:28 07/26/24 13:28 07/26/24 13:28 Oxygen Delivery Method Room Air Charges/Coding Procedures Integumentary 111xxx-113xx: [id number] Kacy subq tissue 20 sq cm/< Physical Exam Narrative 1.8 x 1.8 cm wound on the right upper back. Granulating. Some hypertrophic granulation and fibrinous exudate today. Debridement Note Debridement Note Wound debrided: Right upper back Laterality: Right Wound Grade/Stage: 3 Type of Debridement: Excisional debridement Anesthesia Used: 4% Lidocaine Solution Depth: in the subcutaneous layer Percentage of wound debrided: 100 Instrument Used: 7mm curette Severity: Fat Layer Exposed Amount of bleeding with debridement: Mild Bleeding Controlled with: Compression and gauze Patient tolerated procedure: Patient tolerated procedure well Post-Debridement Measurements and Additional Note: Post-Debridement Measurements/Treatment NAILA - Nurse 1 - General Ulcer Assessment Start: 07/12/24 15:33 Freq: Status: Active Protocol: INDIO Activity Type Activity Date Activity User E-sign Co-sign Detail Recorded Client Recorded Date Recorded By Document 07/12/24 15:34 BMF [id number] 07/12/24 15:37 BMF Document 07/19/24 14:50 DL [id number] 07/19/24 14:55 DL Document 07/26/24 13:28 BMF [id number] 07/26/24 13:33 BMF 07/12/24 07/19/24 07/26/24 15:34 14:50 13:28 - Today's Visit Information Type of service Follow-up Visit Follow-up Visit Follow-up Visit (Physician/TRICOT KNITTING MACHINE OPERATOR (Physician/TRICOT KNITTING MACHINE OPERATOR (Physician/TRICOT KNITTING MACHINE OPERATOR ) ) ) Arrival Mode Cane Ambulatory Ambulatory,Cane Transfer Assistance None None None Patient Identification Verified (Name & Yes Yes Yes ) Patient Requires Transmission-Based No No No Precautions Vital Signs Temperature (97.8 F-99.1 F) 96.4 F L 97.1 F L 96.6 F L Temperature Source Temporal Temporal Temporal Pulse Rate (60-100) 93 87 105 H Pulse Location Monitor Monitor Monitor Respiratory Rate (12-18) 16 18 16 Respiratory rate source Observation Observation Observation Oxygen Delivery Method Room Air Blood Pressure (90/60-120/80) 149/93 H 162/93 H 146/90 H Blood Pressure Mean (mm Hg) 111 116 108 Source Monitor Monitor Monitor Position Semi-Fowlers Sitting Blood Pressure Location Right Arm Left Arm History Since Last Visit- (Skip if this is Patient's initial visit) Have you changed medications since your No No No last visit? Any new allergies or adverse reactions No No No Had a fall/change in ADL's that may No No No increase risk of falls Signs or symptoms of abuse and/or No No No neglect since last visit Have you been in the hospital since your No No No last visit? Has dressing in place as prescribed Yes Yes Yes Has compression in place as prescribed N/A N/A N/A Has offloadiing in place as prescribed N/A N/A N/A Experienced any changes in pain level or No No No management Left Footwear Regular Shoe Right Footwear Regular Shoe Pain Scale: 0-10 Numeric Is Patient Pain Free? Yes Yes Yes - Nurse 1 - General Ulcer Measurement Start: 07/12/24 15:33 Freq: Status: Active Protocol: Activity Type Activity Date Activity User E-sign Co-sign Detail Recorded Client Recorded Date Recorded By Document 07/12/24 15:34 BMF [id number] 07/12/24 15:37 BM Document 07/19/24 14:50 DL [id number] 07/19/24 14:55 DL Document 07/26/24 13:28 BM [id number] 07/26/24 13:33 BMF 07/12/24 07/19/24 07/26/24 15:34 14:50 13:28 Wound Center Nurse 1 #1 Right mid back -Combined with other wound No -Current Size (cm) - Length 0.1 2 1.8 -Current Size (cm) - Width 0.4 1.7 1.8 -Current Size (cm) - Depth 0.1 1 0.5 -Total Square Cm 0.04 3.4 3.24 -Date of Last Picture (Recall this 07/26/24 field) -Photo Taken Yes -Epithelialization Small 1-33% -Tunneling Yes No -Tunneling Position (O'clock) 11 -Tunneling Distance (cm) 0.4 -Undermining/Tunneling No -Circular Undermining No -Exudate Amt Small Medium Medium -Exudate Type Serosanguineous Serosanguineous -Wound Margin Distinct, Distinct, Thickened & Outline Outline Rolled Under Attached Attached -Granulation Amt None Present (0 Medium (34-66%) Small (1-33%) %) -Granulation Quality Red Red -Slough/Fibrin No Yes -Necrosis Amt None Present (0 Medium (34-66%) Large (67-100%) %) -Necrotic Tissue Type Adherent Slough Adherent Slough -Structure Exposed N/A -Texture (Concepcion-wound Skin Appearance) Assessed Scarring Assessed -Moisture (Concepcion-wound Skin Appearance) Assessed No Abnormality Assessed -Color (Concepcion-wound Skin Appearance) Assessed Erythema Assessed -Temperature (Concepcion-wound Skin No Abnormality No Abnormality No Abnormality Appearance) (Pt Warm) (Pt Warm) (Pt Warm) -Tenderness on Palpation (Concepcion-wound No No No Skin Appearance) -Ulcer Cleansing Rinsed/ Soap and Water Rinsed/ Irrigated with Irrigated with Saline Saline -Foul Odor after Cleansing No No No -Anesthetic Used 5% Lidocaine 5% Lidocaine 5% Lidocaine Gel Gel Gel WC - Nurse 2 - General Ulcer CM Notes Start: 07/12/24 15:33 Freq: Status: Active Protocol: Activity Type Activity Date Activity User E-sign Co-sign Detail Recorded Client Recorded Date Recorded By Document 07/12/24 16:34 AMY [id number] 07/12/24 16:37 Edit Result 07/12/24 16:34 JF (1) 0000 07/13/24 16:17 JF Document 07/19/24 15:07 [id number] 07/19/24 15:10 Document 07/26/24 13:48 [id number] 07/26/24 13:52 JF (1) #1 Right mid back - I&D / Paring / Biopsy I&D abscess - => Tangential bx skin single or simple => (eg:shave,scoop, => saucerize,curette) => , single lesion 07/12/24 07/19/24 07/26/24 16:34 15:07 13:48 Wound Center Nurse 2 #1 Right mid back -Time 16:35 15:09 13:48 -Correct Patient Yes Yes Yes -Correct Side, Site, Position Yes Yes Yes -Correct Procedure Yes Yes Yes -Procedure Performed Yes Yes Yes -Type of Procedure Debridement Debridement Debridement -Clinical Debridement Subcutaneous Muscle / Fascia Subcutaneous -Tissue Removed Subcutaneous Muscle Subcutaneous -Post Debridement (cm) - Length 1.5 2.0 1.8 -Post Debridement (cm) - Width 1.5 1.5 1.8 -Post Debridement (cm) - Depth 1.0 1.0 0.3 -Total Square (Post) (cm) 2.25 3.00 3.24 -Area of Debridement (cm) - Length 1.5 2.0 1.8 -Area of Debridement (cm) - Width 1.5 1.5 1.8 -Total Square (Area) (cm) 2.25 3.00 3.24 -Tunneling No No No -Undermining/Tunneling No No No -Circular Undermining No No No -Wound/Ulcer Outcome Not Healed Not Healed Not Healed -Ulcer Cleansing Rinsed/ Rinsed/ Rinsed/ Irrigated with Irrigated with Irrigated with Saline Saline Saline -Foul Odor after Cleansing No No No -Bioengineered Tissue No No No -Bleeding Controlled with Pressure Pressure Pressure -Treatment Response Procedure Procedure Procedure Tolerated Well Tolerated Well Tolerated Well -Offloading No No No -Debridement - Subq, 1st 20sq cm Yes Yes -Debridement - Muscle / Fascia, 1st Yes 20sq cm -I&D / Paring / Biopsy Tangential bx skin (eg:shave, scoop, saucerize, curette), single lesion Pain Scale: 0-10 Numeric Is Patient Pain Free? Yes Yes Yes - Nurse 3 - General Ulcer D/C NN Start: 07/12/24 15:33 Freq: Status: Active Protocol: Activity Type Activity Date Activity User E-sign Co-sign Detail Recorded Client Recorded Date Recorded By Document 07/12/24 16:42 KW [id number] 07/12/24 16:43 KW Document 07/26/24 13:52 JF [id number] 07/26/24 13:52 07/12/24 07/26/24 16:42 13:52 Wound Care Center Nurse 3 #1 Right mid back -Ulcer Cleansing Rinsed/ Irrigated with Saline -Foul Odor after Cleansing No -Primary Dressing Applied Mepilex Border Fibracol Plus 4x4 -Other Dressing pack with gauze -Primary Dressing Covered/Secured with Dry Gauze, Secured with Tape -Fibracol Plus 4x4 2 -Mepilex Border 1 Pain Scale: 0-10 Numeric Is Patient Pain Free? Yes Yes - Visit Discharge Discharge Condition Stable Stable Ambulatory Status Ambulatory Ambulatory,Cane Transportation Private Auto Private Auto Medication Reconcilliation completed & No Yes provided to patient/care provider Clinical Summary of Care Provided Yes Yes Assessment/Plan Assessment/Plan (1) Decubitus ulcer of back: CODE(S): L89.109 - Pressure ulcer of unspecified part of back, unspecified stage PLAN: Debrided again today. Doing well. Needs to remain open for wound care. Continue the Alginate/collagen daily (Fibracol) F/u in 2 weeks in clinic to check the progress.
--- NOTE | 2024-08-09 10:05 | WC ---
PHOTO 07/26/24 BACK
== END 2024-08-03 23:59 | disposition home or self-care (01) ==
LOC: WC 13:00
PROVIDERS: PCP Family Medicine; Referring Provider Nurse Practitioner; Visit Provider Surgery Plastic and Reconstructive Surgery
DX: L89.114 Pressure ulcer of right upper back, stage 4 (principal); Z79.82 Long term (current) use of aspirin; Z79.84 Long term (current) use of oral hypoglycemic drugs; Z79.899 Other long term (current) drug therapy
CPT/HCPCS: 10060; 11042; 11043; 11102; 88304

== ENCOUNTER 2024-08-30 10:45 | Outpatient (RCR) | payer MEDICARE, OTHER, SELFPAY ==
[2024-08-04 00:45] VITALS: BP 142/93; PULSE 98; RESP 18; TEMP 36.2
[2024-08-09 10:45] VITALS: BP 147/87; PULSE 100; RESP 18; TEMP 36.3
[2024-08-16 10:32] VITALS: BP 142/84; PULSE 93; RESP 16; TEMP 35.9
--- NOTE | 2024-08-16 12:24 | PCM.WC.PN ---
History of Present Illness Date of Service: 08/16/24 Chief Complaint: Follow-up on an open wound on upper mid back History of Wound: History of Wound: Jojo Gamboa is a delightful 74-year-old female who presents for a wound on her right upper back slightly off midline that developed a couple months ago around a draining likely epidermal inclusion cyst. She is referred to me for surgical options as the wound tracks medially and appears to have a roof that is inhibiting healing. Progress of Wound: 28 Jun 2024: Doing well overall with dressing changes, her friend has been helping her. No fevers or chills. 12 Jul 2024: Unable to pack wound well. Reports trouble with packing. 19 Jul 2024: Doing well with wound care. Discussed pathology from biopsy (negative for malignancy). 26 Jul 2024: Doing well. Packing going well. Current encounter 16 Aug 2024: Patient is doing well. She continues to have undermining present. She has assistance with the packing of the ulcer. Objective Data Objective Data Vital Signs: Vital Signs Temp Pulse Resp BP O2 Del Method 96.6 F L 93 16 142/84 H Room Air 08/16/24 10:32 08/16/24 10:32 08/16/24 10:32 08/16/24 10:32 08/16/24 10:32 Oxygen Delivery Method Room Air Charges/Coding Procedures Integumentary 111xxx-113xx: 11712 Kacy subq tissue 20 sq cm/< Debridement Note Debridement Note Wound debrided: Right upper back Laterality: Right Wound Grade/Stage: 3 Type of Debridement: Excisional debridement Anesthesia Used: 4% Lidocaine Solution Depth: in the subcutaneous layer Percentage of wound debrided: 100 Instrument Used: 5mm curette Tissue Removed: Non viable tissue and slough Severity: Fat Layer Exposed Amount of bleeding with debridement: Mild Bleeding Controlled with: Compression and gauze Patient tolerated procedure: Patient tolerated procedure well Post-Debridement Measurements and Additional Note: Post-Debridement Measurements/Treatment WC - Nurse 1 - General Ulcer Assessment Start: 08/09/24 10:45 Freq: Status: Active Protocol: INDIO Activity Type Activity Date Activity User E-sign Co-sign Detail Recorded Client Recorded Date Recorded By Document 08/09/24 10:45 KW [id number] 08/09/24 10:46 KW Document 08/16/24 10:32 [facility] [id number] 08/16/24 10:37 [facility] 08/09/24 08/16/24 10:45 10:32 - Today's Visit Information Type of service Nurse-only Follow-up Visit Visit (Physician/WINDOWS SERVER ARCHITECT ) Arrival Mode Ambulatory,Cane Ambulatory,Cane Patient Identification Verified (Name & Yes Yes ) Vital Signs Temperature (97.8 F-99.1 F) 97.4 F L 96.6 F L Temperature Source Temporal Temporal Pulse Rate (60-100) 100 93 Pulse Location Monitor Monitor Respiratory Rate (12-18) 18 16 Respiratory rate source Observation Observation Oxygen Delivery Method Room Air Room Air Blood Pressure (90/60-120/80) 147/87 H 142/84 H Blood Pressure Mean (mm Hg) 107 103 Source Monitor Monitor Position Sitting Sitting Blood Pressure Location Left Forearm Left Arm History Since Last Visit- (Skip if this is Patient's initial visit) Have you changed medications since your No No last visit? Any new allergies or adverse reactions No No Had a fall/change in ADL's that may No Yes increase risk of falls Signs or symptoms of abuse and/or No No neglect since last visit Have you been in the hospital since your No No last visit? Has dressing in place as prescribed Yes Yes Has compression in place as prescribed N/A N/A Has offloadiing in place as prescribed N/A N/A Experienced any changes in pain level or No No management Left Footwear Regular Shoe Regular Shoe Right Footwear Regular Shoe Regular Shoe Pain Scale: 0-10 Numeric Is Patient Pain Free? Yes Yes - Nurse 1 - General Ulcer Measurement Start: 08/09/24 10:45 Freq: Status: Active Protocol: Activity Type Activity Date Activity User E-sign Co-sign Detail Recorded Client Recorded Date Recorded By Document 08/16/24 10:32 [facility] [id number] 08/16/24 10:37 [facility] 08/16/24 10:32 Wound Center Nurse 1 #1 Right mid back -Current Size (cm) - Length 0.8 -Current Size (cm) - Width 0.6 -Current Size (cm) - Depth 0.1 -Total Square Cm 0.48 -Date of Last Picture (Recall this 08/16/24 field) -Exudate Amt Small -Exudate Type Serosanguineous -Wound Margin Distinct, Outline Attached -Granulation Amt None Present (0 %) -Necrosis Amt Large (67-100%) -Necrotic Tissue Type Eschar -Texture (Concepcion-wound Skin Appearance) Assessed -Moisture (Concepcion-wound Skin Appearance) Assessed -Color (Concepcion-wound Skin Appearance) Assessed -Temperature (Concepcion-wound Skin No Abnormality Appearance) (Pt Warm) -Tenderness on Palpation (Concepcion-wound No Skin Appearance) -Ulcer Cleansing Rinsed/ Irrigated with Saline -Foul Odor after Cleansing No -Anesthetic Used 5% Lidocaine Gel WC - Nurse 2 - General Ulcer CM Notes Start: 08/09/24 10:45 Freq: Status: Active Protocol: Activity Type Activity Date Activity User E-sign Co-sign Detail Recorded Client Recorded Date Recorded By Document 08/16/24 10:58 GM [id number] 08/16/24 11:03 08/16/24 10:58 Wound Center Nurse 2 -Time 10:59 -Correct Patient Yes -Correct Side, Site, Position Yes -Correct Procedure Yes -Procedure Performed Yes -Type of Procedure Debridement -Clinical Debridement Subcutaneous -Tissue Removed Subcutaneous -Post Debridement (cm) - Length 0.7 -Post Debridement (cm) - Width 0.3 -Post Debridement (cm) - Depth 0.5 -Total Square (Post) (cm) 0.21 -Area of Debridement (cm) - Length 0.7 -Area of Debridement (cm) - Width 0.3 -Total Square (Area) (cm) 0.21 -Tunneling No -Undermining/Tunneling No -Circular Undermining No -Wound/Ulcer Outcome Not Healed -Ulcer Cleansing Rinsed/ Irrigated with Saline -Foul Odor after Cleansing No -Bioengineered Tissue No -Bleeding Controlled with Pressure -Treatment Response Procedure Tolerated Well -Debridement - Subq, 1st 20sq cm Yes Pain Scale: 0-10 Numeric Is Patient Pain Free? Yes WC - Nurse 3 - General Ulcer D/C NN Start: 08/09/24 10:45 Freq: Status: Active Protocol: Activity Type Activity Date Activity User E-sign Co-sign Detail Recorded Client Recorded Date Recorded By Document 08/09/24 10:45 KW [id number] 08/09/24 10:46 KW Document 08/16/24 11:15 ML [id number] 08/16/24 11:16 ML 08/09/24 08/16/24 10:45 11:15 Vital Signs Temperature (97.8 F-99.1 F) 97.4 F L Temperature Source Temporal Pulse Rate (60-100) 100 Pulse Location Monitor Respiratory Rate (12-18) 18 Respiratory rate source Observation Oxygen Delivery Method Room Air Blood Pressure (90/60-120/80) 147/87 H Blood Pressure Mean (mm Hg) 107 Source Monitor Position Sitting Blood Pressure Location Left Forearm Pain Scale: 0-10 Numeric Is Patient Pain Free? Yes Yes Wound Care Center Nurse 3 #1 Right mid back -Ulcer Cleansing Rinsed/ Irrigated with Saline -Primary Dressing Applied Fibracol Plus 4x4,Mepilex Border -Primary Dressing Applied Aquacel Rope, Silicone Border Foam 4x4 -Fibracol Plus 4x4 1 -Mepilex Border 1 -Silicone Border Foam 4x4 1 WC - Visit Discharge Discharge Condition Stable Ambulatory Status Ambulatory,Cane Transportation Private Auto Medication Reconcilliation completed & No provided to patient/care provider Clinical Summary of Care Provided Yes Assessment/Plan Assessment/Plan (1) Decubitus ulcer of back: CODE(S): L89.109 - Pressure ulcer of unspecified part of back, unspecified stage PLAN: Plan Debrided again today. Doing well. Needs to remain open for wound care. Wound care - Aquacel Extra covered with gauze/ABD/Mepilex/silicone border dressing daily after washing ulcer and concepcion wound with soap and water. F/u in 2 weeks in clinic to check the progress. Call or come in sooner if develop any concerns.
--- NOTE | 2024-08-20 08:59 | WC ---
PHOTO 08/16/24 BACK
[2024-08-30 10:45] VITALS: BP 158/90; PULSE 95; RESP 16; TEMP 36.2
--- NOTE | 2024-08-30 12:58 | PN.PCM_ITS ---
History of Present Illness Date of Service: 08/30/24 Chief Complaint: Follow-up on an open wound on upper mid back History of Wound: History of Wound: Jojo Gamboa is a delightful 74-year-old female who presents for a wound on her right upper back slightly off midline that developed a couple months ago around a draining likely epidermal inclusion cyst. She is referred to me for surgical options as the wound tracks medially and appears to have a roof that is inhibiting healing. Progress of Wound: 28 Jun 2024: Doing well overall with dressing changes, her friend has been helping her. No fevers or chills. 12 Jul 2024: Unable to pack wound well. Reports trouble with packing. 19 Jul 2024: Doing well with wound care. Discussed pathology from biopsy (negative for malignancy). 26 Jul 2024: Doing well. Packing going well. 16 Aug 2024: Patient is doing well. She continues to have undermining present. She has assistance with the packing of the ulcer. Current encounter 30 Aug 2024: She still has some undermining but it is decreasing and the ulcer has healed except for the undermining portion. Objective Data Objective Data Vital Signs: Vital Signs Temp Pulse Resp BP O2 Del Method 97.2 F L 95 16 158/90 H Room Air 08/30/24 10:45 08/30/24 10:45 08/30/24 10:45 08/30/24 10:45 08/30/24 10:45 Oxygen Delivery Method Room Air Charges/Coding Procedures Integumentary 111xxx-113xx: 61516 Kacy subq tissue 20 sq cm/< Debridement Note Debridement Note Wound debrided: Right upper back Laterality: Right Wound Grade/Stage: 3 Type of Debridement: Excisional debridement Anesthesia Used: 5% Lidocaine Gel Depth: Down to and including healthy tissue and in the subcutaneous layer Percentage of wound debrided: 100 Instrument Used: 3mm curette Tissue Removed: Non viable tissue and slough Severity: Fat Layer Exposed Amount of bleeding with debridement: Mild Bleeding Controlled with: Compression and gauze Patient tolerated procedure: Patient tolerated procedure well Post-Debridement Measurements and Additional Note: Post-Debridement Measurements/Treatment NAILA - Nurse 1 - General Ulcer Assessment Start: 08/09/24 10:45 Freq: Status: Active Protocol: INDIO Activity Type Activity Date Activity User E-sign Co-sign Detail Recorded Client Recorded Date Recorded By Document 08/09/24 10:45 [id number] 08/09/24 10:46 KW Document 08/16/24 10:32 [facility] [id number] 08/16/24 10:37 BM Document 08/30/24 10:45 BM [id number] 08/30/24 10:50 BMF 08/09/24 08/16/24 08/30/24 10:45 10:32 10:45 - Today's Visit Information Type of service Nurse-only Follow-up Visit Follow-up Visit Visit (Physician/WARNING COORDINATION METEOROLOGIST (Physician/WARNING COORDINATION METEOROLOGIST ) ) Arrival Mode Ambulatory,Cane Ambulatory,Cane Ambulatory,Cane Transfer Assistance None Patient Identification Verified (Name & Yes Yes Yes ) Patient Requires Transmission-Based No Precautions Vital Signs Temperature (97.8 F-99.1 F) 97.4 F L 96.6 F L 97.2 F L Temperature Source Temporal Temporal Temporal Pulse Rate (60-100) 100 93 95 Pulse Location Monitor Monitor Monitor Respiratory Rate (12-18) 18 16 16 Respiratory rate source Observation Observation Observation Oxygen Delivery Method Room Air Room Air Room Air Blood Pressure (90/60-120/80) 147/87 H 142/84 H 158/90 H Blood Pressure Mean (mm Hg) 107 103 112 Source Monitor Monitor Monitor Position Sitting Sitting Sitting Blood Pressure Location Left Forearm Left Arm Right Arm History Since Last Visit- (Skip if this is Patient's initial visit) Have you changed medications since your No No No last visit? Any new allergies or adverse reactions No No No Had a fall/change in ADL's that may No Yes No increase risk of falls Signs or symptoms of abuse and/or No No No neglect since last visit Have you been in the hospital since your No No No last visit? Has dressing in place as prescribed Yes Yes Yes Has compression in place as prescribed N/A N/A N/A Has offloadiing in place as prescribed N/A N/A N/A Experienced any changes in pain level or No No No management Left Footwear Regular Shoe Regular Shoe Regular Shoe Right Footwear Regular Shoe Regular Shoe Regular Shoe Pain Scale: 0-10 Numeric Is Patient Pain Free? Yes Yes Yes - Nurse 1 - General Ulcer Measurement Start: 08/09/24 10:45 Freq: Status: Active Protocol: Activity Type Activity Date Activity User E-sign Co-sign Detail Recorded Client Recorded Date Recorded By Document 08/16/24 10:32 [facility] [id number] 08/16/24 10:37 [facility] Document 08/30/24 10:45 [facility] [id number] 08/30/24 10:50 [facility] 08/16/24 08/30/24 10:32 10:45 Wound Center Nurse 1 #1 Right mid back -Combined with other wound No -Current Size (cm) - Length 0.8 0.3 -Current Size (cm) - Width 0.6 0.4 -Current Size (cm) - Depth 0.1 0.2 -Total Square Cm 0.48 0.12 -Date of Last Picture (Recall this 08/16/24 08/30/24 field) -Photo Taken Yes -Epithelialization Small 1-33% -Tunneling No -Undermining/Tunneling No -Circular Undermining No -Exudate Amt Small Medium -Exudate Type Serosanguineous Serosanguineous -Wound Margin Distinct, Thickened & Outline Rolled Under Attached -Granulation Amt None Present (0 None Present (0 %) %) -Slough/Fibrin Yes -Necrosis Amt Large (67-100%) Large (67-100%) -Necrotic Tissue Type Eschar Eschar -Texture (Concepcion-wound Skin Appearance) Assessed Assessed, Scarring -Moisture (Concepcion-wound Skin Appearance) Assessed Assessed,Dry/ Scaly -Color (Concepcion-wound Skin Appearance) Assessed Assessed -Temperature (Concepcion-wound Skin No Abnormality No Abnormality Appearance) (Pt Warm) (Pt Warm) -Tenderness on Palpation (Concepcion-wound No No Skin Appearance) -Ulcer Cleansing Rinsed/ Rinsed/ Irrigated with Irrigated with Saline Saline -Foul Odor after Cleansing No No -Anesthetic Used 5% Lidocaine 5% Lidocaine Gel Gel WC - Nurse 2 - General Ulcer CM Notes Start: 08/09/24 10:45 Freq: Status: Active Protocol: Activity Type Activity Date Activity User E-sign Co-sign Detail Recorded Client Recorded Date Recorded By Document 08/16/24 10:58 [id number] 08/16/24 11:03 Document 08/30/24 11:14 [id number] 08/30/24 11:17 08/16/24 08/30/24 10:58 11:14 Wound Center Nurse 2 #1 Right mid back -Time 10:59 11:14 -Correct Patient Yes Yes -Correct Side, Site, Position Yes Yes -Correct Procedure Yes Yes -Procedure Performed Yes Yes -Type of Procedure Debridement Debridement -Clinical Debridement Subcutaneous Subcutaneous -Tissue Removed Subcutaneous Subcutaneous -Post Debridement (cm) - Length 0.7 0.2 -Post Debridement (cm) - Width 0.3 0.5 -Post Debridement (cm) - Depth 0.5 0.3 -Total Square (Post) (cm) 0.21 0.10 -Area of Debridement (cm) - Length 0.7 0.2 -Area of Debridement (cm) - Width 0.3 0.5 -Total Square (Area) (cm) 0.21 0.10 -Tunneling No No -Undermining/Tunneling No No -Circular Undermining No No -Wound/Ulcer Outcome Not Healed Not Healed -Ulcer Cleansing Rinsed/ Rinsed/ Irrigated with Irrigated with Saline Saline -Foul Odor after Cleansing No No -Bioengineered Tissue No No -Bleeding Controlled with Pressure Pressure -Treatment Response Procedure Procedure Tolerated Well Tolerated Well -Offloading No -Debridement - Subq, 1st 20sq cm Yes Yes Pain Scale: 0-10 Numeric Is Patient Pain Free? Yes Yes - Nurse 3 - General Ulcer D/C NN Start: 08/09/24 10:45 Freq: Status: Active Protocol: Activity Type Activity Date Activity User E-sign Co-sign Detail Recorded Client Recorded Date Recorded By Document 08/09/24 10:45 KW [id number] 08/09/24 10:46 KW Document 08/16/24 11:15 ML [id number] 08/16/24 11:16 ML Document 08/30/24 11:21 KW [id number] 08/30/24 11:21 KW 08/09/24 08/16/24 08/30/24 10:45 11:15 11:21 Vital Signs Temperature (97.8 F-99.1 F) 97.4 F L Temperature Source Temporal Pulse Rate (60-100) 100 Pulse Location Monitor Respiratory Rate (12-18) 18 Respiratory rate source Observation Oxygen Delivery Method Room Air Blood Pressure (90/60-120/80) 147/87 H Blood Pressure Mean (mm Hg) 107 Source Monitor Position Sitting Blood Pressure Location Left Forearm Pain Scale: 0-10 Numeric Is Patient Pain Free? Yes Yes Yes Wound Care Center Nurse 3 #1 Right mid back -Ulcer Cleansing Rinsed/ Irrigated with Saline -Primary Dressing Applied Fibracol Plus 4x4,Mepilex Border -Primary Dressing Applied Nugauze, Iodoform 1/4in, Silicone Border Foam 6x6 -Primary Dressing Applied Aquacel Rope, Silicone Border Foam 4x4 -Fibracol Plus 4x4 1 -Mepilex Border 1 -Nugauze, Iodoform 1/4in 1 -Silicone Border Foam 4x4 1 -Silicone Border Foam 6x6 1 WC - Visit Discharge Discharge Condition Stable Stable Ambulatory Status Ambulatory,Cane Ambulatory,Cane Transportation Private Auto Private Auto Medication Reconcilliation completed & No No provided to patient/care provider Clinical Summary of Care Provided Yes Yes Assessment/Plan Assessment/Plan (1) Decubitus ulcer of back: CODE(S): L89.109 - Pressure ulcer of unspecified part of back, unspecified stage PLAN: Plan Patient evaluated at the wound healing center. She and her friend are doing well with the wound care. Wound care - Switched to packing with Iodoform gauze covered with gauze/ABD/Mepilex/silicone border dressing daily after washing ulcer and concepcion wound with soap and water. F/u in 2 weeks in clinic to check the progress. Call or come in sooner if develop any concerns.
--- NOTE | 2024-08-31 09:23 | WC ---
PHOTO 08/30/24 BACK
== END 2024-09-03 23:59 | disposition home or self-care (01) ==
LOC: WC 10:45
PROVIDERS: PCP Family Medicine; Referring Provider Nurse Practitioner; Visit Provider Surgery Plastic and Reconstructive Surgery
DX: L89.119 Pressure ulcer of right upper back, unspecified stage (principal); Z79.82 Long term (current) use of aspirin; Z79.84 Long term (current) use of oral hypoglycemic drugs; Z79.899 Other long term (current) drug therapy
CPT/HCPCS: 11042; 99212; G0463

== ENCOUNTER 2024-09-27 10:00 | Outpatient (RCR) | payer MEDICARE, OTHER, SELFPAY ==
[2024-09-04 01:09] VITALS: BP 158/90; PULSE 95; RESP 16; TEMP 36.2
[2024-09-20 10:28] VITALS: BP 145/84; PULSE 83; RESP 18; TEMP 35.3
--- NOTE | 2024-09-20 15:13 | PN.PCM_ITS ---
History of Present Illness Date of Service: 09/20/24 Chief Complaint: Follow-up on an open wound on upper mid back History of Wound: History of Wound: Jojo Gamboa is a delightful 74-year-old female who presents for a wound on her right upper back slightly off midline that developed a couple months ago around a draining likely epidermal inclusion cyst. She is referred to me for surgical options as the wound tracks medially and appears to have a roof that is inhibiting healing. Progress of Wound: 28 Jun 2024: Doing well overall with dressing changes, her friend has been helping her. No fevers or chills. 12 Jul 2024: Unable to pack wound well. Reports trouble with packing. 19 Jul 2024: Doing well with wound care. Discussed pathology from biopsy (negative for malignancy). 26 Jul 2024: Doing well. Packing going well. 16 Aug 2024: Patient is doing well. She continues to have undermining present. She has assistance with the packing of the ulcer. 30 Aug 2024: She still has some undermining but it is decreasing and the ulcer has healed except for the undermining portion. 20 Sep 2024: She continues to have undermining. The remaining ulcer has healed everywhere except the undermining. There is a pocket with the undermining that actually looks healed but with the undermining/pocket, it could be a source where moisture/dirt can collect and potientially cause infection/moisture buildup. If the ulcer is unroofed, it will make wound care easier and hopefully expidite the wound healing. Objective Data Objective Data Vital Signs: Vital Signs Temp Pulse Resp BP O2 Del Method 95.5 F L 83 18 145/84 H Room Air 09/20/24 10:28 09/20/24 10:28 09/20/24 10:28 09/20/24 10:28 09/20/24 10:28 Oxygen Delivery Method Room Air Charges/Coding Procedures Integumentary 111xxx-113xx: 55673 Kacy subq tissue 20 sq cm/< Debridement Note Debridement Note Wound debrided: Right upper back Laterality: Right Wound Grade/Stage: 3 Type of Debridement: Excisional debridement Anesthesia Used: 5% Lidocaine Gel and - (Lidocaine 1%/Epi) Depth: Down to and including healthy tissue and in the subcutaneous layer Percentage of wound debrided: 100 Instrument Used: 5mm curette, #15 blade and Forceps Tissue Removed: Unroofed the undermining Severity: Fat Layer Exposed Amount of bleeding with debridement: Mild Bleeding Controlled with: Pressure, Compression and gauze and Silver Nitrate Patient tolerated procedure: Patient tolerated procedure well Debridement Free Text: Discussed in depth with patient about her having this undermining that is not ever going to heal the way it is now and this area needs to be unroofed to allow the ulcer to heal. She agreed to have this area unroofed. After injecting 2 ml of Lidocaine 1%/Epi and waiting several minutes until she was completely numb. Used #15 blade and pick ups and shaved off the roof to expose the undermining of the ulcer. There was a very small black fabric material (possibly old dressing) in the very base of the ulcer that was found after it was unroofed. It was not visible in the tunnel before unroofing. Used a #5 curette to remove the non viable tissue from the ulcer area. Pressure held. Silver nitrate applied to the area. Patient tolerated the procedure well. The ulcer is now exposed so it will make it easier to do wound care. 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 Any new allergies or adverse reactions No Had a fall/change in ADL's that may No increase risk of falls Signs or symptoms of abuse and/or No neglect since last visit Have you been in the hospital since your No last visit? Has dressing in place as prescribed Yes Has compression in place as prescribed N/A Has offloadiing in place as prescribed N/A Experienced any changes in pain level or No management Left Footwear Regular Shoe Right Footwear Regular Shoe Pain Scale: 0-10 Numeric Is Patient Pain Free? Yes WC - Nurse 1 - General Ulcer Measurement Start: 09/20/24 10:28 Freq: Status: Active Protocol: Activity Type Activity Date Activity User E-sign Co-sign Detail Recorded Client Recorded Date Recorded By Document 09/20/24 10:28 SEDRICK [id number] 09/20/24 10:31 SEDRICK 09/20/24 10:28 Wound Center Nurse 1 #1 Right mid back -Current Size (cm) - Length 0.1 -Current Size (cm) - Width 0.1 -Current Size (cm) - Depth 0.1 -Total Square Cm 0.01 -Date of Last Picture (Recall this 09/20/24 field) -Epithelialization Large 67-100% -Exudate Amt None Present -Texture (Concepcion-wound Skin Appearance) Assessed -Moisture (Concepcion-wound Skin Appearance) Assessed -Color (Concepcion-wound Skin Appearance) Assessed -Temperature (Concepcion-wound Skin No Abnormality Appearance) (Pt Warm) -Tenderness on Palpation (Concepcion-wound No Skin Appearance) -Ulcer Cleansing Rinsed/ Irrigated with Saline -Foul Odor after Cleansing No -Anesthetic Used 5% Lidocaine Gel NAILA - Nurse 2 - General Ulcer CM Notes Start: 09/20/24 10:28 Freq: Status: Active Protocol: Activity Type Activity Date Activity User E-sign Co-sign Detail Recorded Client Recorded Date Recorded By Document 09/20/24 10:45 AMY [id number] 09/20/24 10:58 AMY 09/20/24 10:45 Wound Center Nurse 2 -Time 10:46 -Correct Patient Yes -Correct Side, Site, Position Yes -Correct Procedure Yes -Procedure Performed Yes -Type of Procedure Debridement -Clinical Debridement Subcutaneous -Tissue Removed Subcutaneous -Post Debridement (cm) - Length 1.5 -Post Debridement (cm) - Width 1.5 -Post Debridement (cm) - Depth 0.3 -Total Square (Post) (cm) 2.25 -Area of Debridement (cm) - Length 1.5 -Area of Debridement (cm) - Width 1.5 -Total Square (Area) (cm) 2.25 -Tunneling No -Undermining/Tunneling No -Circular Undermining No -Wound/Ulcer Outcome Not Healed -Ulcer Cleansing Rinsed/ Irrigated with Saline -Foul Odor after Cleansing No -Bioengineered Tissue No -Bleeding Controlled with Pressure,Silver Nitrate -Treatment Response Procedure Tolerated Well -Offloading No -Debridement - Subq, 1st 20sq cm Yes Pain Scale: 0-10 Numeric Is Patient Pain Free? Yes - Nurse 3 - General Ulcer D/C NN Start: 09/20/24 10:28 Freq: Status: Active Protocol: Activity Type Activity Date Activity User E-sign Co-sign Detail Recorded Client Recorded Date Recorded By Document 09/20/24 11:03 DL [id number] 09/20/24 11:05 DL 09/20/24 11:03 Wound Care Center Nurse 3 #1 Right mid back -Ulcer Cleansing Rinsed/ Irrigated with Saline -Foul Odor after Cleansing No -Primary Dressing Applied Fibracol Plus 4x4,Silicone Border Foam 4x4 -Fibracol Plus 4x4 1 -Silicone Border Foam 4x4 1 -Wound Comment(s) Silver nitrate used to per Emerita Singleton CNP Treatment Response Procedure Tolerated Well Pain Scale: 0-10 Numeric Is Patient Pain Free? Yes - Visit Discharge Discharge Condition Stable Ambulatory Status Ambulatory Transportation Private Auto Assessment/Plan Assessment/Plan (1) Decubitus ulcer of back: CODE(S): L89.109 - Pressure ulcer of unspecified part of back, unspecified stage PLAN: Plan Patient evaluated at the wound healing center. Unroofed the ulcer today to make wound care easier. There has not been any improvement in the past several visits in her ulcer with the underminig. Wound care - Fibrocol (may moisten with saline) covered with Mepilex/silicone border dressing daily after washing ulcer and concepcion wound with soap and water. F/u in 1 week in clinic to check the progress. Call or come in sooner if develop any concerns.
--- NOTE | 2024-09-20 16:12 | NURSING ---
PHOTO 09/20/24 Right Mid Back
[2024-09-27 09:52] VITALS: BP 146/81; PULSE 87; RESP 18
--- NOTE | 2024-09-27 13:12 | PCM.WC.PN ---
History of Present Illness Date of Service: 09/27/24 Chief Complaint: Follow-up on an open wound on upper mid back History of Wound: History of Wound: Jojo Gamboa is a delightful 74-year-old female who presents for a wound on her right upper back slightly off midline that developed a couple months ago around a draining likely epidermal inclusion cyst. She is referred to me for surgical options as the wound tracks medially and appears to have a roof that is inhibiting healing. Progress of Wound: 28 Jun 2024: Doing well overall with dressing changes, her friend has been helping her. No fevers or chills. 12 Jul 2024: Unable to pack wound well. Reports trouble with packing. 19 Jul 2024: Doing well with wound care. Discussed pathology from biopsy (negative for malignancy). 26 Jul 2024: Doing well. Packing going well. 16 Aug 2024: Patient is doing well. She continues to have undermining present. She has assistance with the packing of the ulcer. 30 Aug 2024: She still has some undermining but it is decreasing and the ulcer has healed except for the undermining portion. 20 Sep 2024: She continues to have undermining. The remaining ulcer has healed everywhere except the undermining. There is a pocket with the undermining that actually looks healed but with the undermining/pocket, it could be a source where moisture/dirt can collect and potentially cause infection/moisture buildup. If the ulcer is unroofed, it will make wound care easier and hopefully expedite the wound healing. 27 Sep 2024: Pocket was excised at her last visit and silver nitrate was used. On the left edge where the silver nitrate was used, the ulcer dried out. She is having minimal drainage from the ulcer. No erythema or warmth present. No other signs of infection. It is easier to do wound care now that it has been unroofed. Objective Data Objective Data Vital Signs: Vital Signs Temp Pulse Resp BP O2 Del Method 95.5 F L 87 18 146/81 H Room Air 09/20/24 10:28 09/27/24 09:52 09/27/24 09:52 09/27/24 09:52 09/27/24 09:52 Oxygen Delivery Method Room Air Charges/Coding Procedures Integumentary 111xxx-113xx: [id number] Kacy subq tissue 20 sq cm/< Debridement Note Debridement Note Wound debrided: Right upper back Laterality: Right Wound Grade/Stage: 3 Type of Debridement: Excisional debridement Anesthesia Used: 5% Lidocaine Gel and - (Lidocaine 1%/Epi) Depth: Down to and including healthy tissue and in the subcutaneous layer Percentage of wound debrided: 100 Instrument Used: 5mm curette, Forceps and - (sharp scissors) Tissue Removed: Non viable tissue and slough Severity: Fat Layer Exposed Amount of bleeding with debridement: Mild Bleeding Controlled with: Pressure, Compression and gauze and Silver Nitrate Patient tolerated procedure: Patient tolerated procedure well Debridement Free Text: Injected about 2 ml of Lidocaine 1%/Epi and waiting several minutes until she was completely numb. Used pick ups sharp scissors to remove the nonviable tissue on left edge of the ulcer. Used a #5 curette to remove the non viable tissue from the ulcer area. Pressure held. Patient tolerated the procedure well. Post-Debridement Measurements and Additional Note: Post-Debridement Measurements/Treatment - Nurse 1 - General Ulcer Assessment Start: 09/20/24 10:28 Freq: Status: Active Protocol: INDIO Activity Type Activity Date Activity User E-sign Co-sign Detail Recorded Client Recorded Date Recorded By Document 09/20/24 10:28 KW [id number] 09/20/24 10:31 KW Document 09/27/24 09:52 KW [id number] 09/27/24 09:54 KW 09/20/24 09/27/24 10:28 09:52 - Today's Visit Information Type of service Follow-up Visit Follow-up Visit (Physician/MARINE RESOURCE ECONOMIST (Physician/MARINE RESOURCE ECONOMIST ) ) Arrival Mode Ambulatory,Cane Ambulatory Patient Identification Verified (Name & Yes Yes ) Vital Signs Temperature (97.8 F-99.1 F) 95.5 F L Temperature Source Temporal Pulse Rate (60-100) 83 87 Pulse Location Monitor Monitor Respiratory Rate (12-18) 18 18 Respiratory rate source Observation Monitor Oxygen Delivery Method Room Air Room Air Blood Pressure (90/60-120/80) 145/84 H 146/81 H Blood Pressure Mean (mm Hg) 104 102 Source Monitor Monitor Position Semi-Fowlers Sitting Blood Pressure Location Right Forearm Right Arm History Since Last Visit- (Skip if this is Patient's initial visit) Have you changed medications since your No No last visit? Any new allergies or adverse reactions No No Had a fall/change in ADL's that may No No increase risk of falls Signs or symptoms of abuse and/or No No neglect since last visit Have you been in the hospital since your No No last visit? Has dressing in place as prescribed Yes Yes Has compression in place as prescribed N/A N/A Has offloadiing in place as prescribed N/A N/A Experienced any changes in pain level or No No management Left Footwear Regular Shoe Regular Shoe Right Footwear Regular Shoe Regular Shoe Pain Scale: 0-10 Numeric Is Patient Pain Free? Yes Yes WC - Nurse 1 - General Ulcer Measurement Start: 09/20/24 10:28 Freq: Status: Active Protocol: Activity Type Activity Date Activity User E-sign Co-sign Detail Recorded Client Recorded Date Recorded By Document 09/20/24 10:28 KW [id number] 09/20/24 10:31 KW Document 09/27/24 09:52 KW [id number] 09/27/24 09:54 KW 09/20/24 09/27/24 10:28 09:52 Wound Center Nurse 1 #1 Right mid back -Current Size (cm) - Length 0.1 1.5 -Current Size (cm) - Width 0.1 2 -Current Size (cm) - Depth 0.1 0.3 -Total Square Cm 0.01 3.0 -Date of Last Picture (Recall this 09/20/24 field) -Epithelialization Large 67-100% -Exudate Amt None Present Small -Exudate Type Serosanguineous -Wound Margin Distinct, Outline Attached -Granulation Amt Small (1-33%) -Granulation Quality Darling -Necrosis Amt Large (67-100%) -Necrotic Tissue Type Adherent Slough -Texture (Concepcion-wound Skin Appearance) Assessed Assessed -Moisture (Concepcion-wound Skin Appearance) Assessed Assessed -Color (Concepcion-wound Skin Appearance) Assessed No Abnormality -Temperature (Concepcion-wound Skin No Abnormality No Abnormality Appearance) (Pt Warm) (Pt Warm) -Tenderness on Palpation (Concepcion-wound No No Skin Appearance) -Ulcer Cleansing Rinsed/ Rinsed/ Irrigated with Irrigated with Saline Saline -Foul Odor after Cleansing No No -Anesthetic Used 5% Lidocaine 5% Lidocaine Gel Gel WC - Nurse 2 - General Ulcer CM Notes Start: 09/20/24 10:28 Freq: Status: Active Protocol: Activity Type Activity Date Activity User E-sign Co-sign Detail Recorded Client Recorded Date Recorded By Document 09/20/24 10:45 JF [id number] 09/20/24 10:58 JF Document 09/27/24 10:52 JF [id number] 09/27/24 10:59 JF 09/20/24 09/27/24 10:45 10:52 Wound Center Nurse 2 #1 Right mid back -Time 10:46 10:53 -Correct Patient Yes Yes -Correct Side, Site, Position Yes Yes -Correct Procedure Yes Yes -Procedure Performed Yes Yes -Type of Procedure Debridement Debridement -Clinical Debridement Subcutaneous Subcutaneous -Tissue Removed Subcutaneous Subcutaneous -Post Debridement (cm) - Length 1.5 2.0 -Post Debridement (cm) - Width 1.5 2.0 -Post Debridement (cm) - Depth 0.3 0.3 -Total Square (Post) (cm) 2.25 4.00 -Area of Debridement (cm) - Length 1.5 2.0 -Area of Debridement (cm) - Width 1.5 2.0 -Total Square (Area) (cm) 2.25 4.00 -Tunneling No No -Undermining/Tunneling No No -Circular Undermining No No -Wound/Ulcer Outcome Not Healed Not Healed -Ulcer Cleansing Rinsed/ Rinsed/ Irrigated with Irrigated with Saline Saline -Foul Odor after Cleansing No No -Bioengineered Tissue No No -Bleeding Controlled with Pressure,Silver Pressure Nitrate -Treatment Response Procedure Procedure Tolerated Well Tolerated Well -Offloading No No -Debridement - Subq, 1st 20sq cm Yes Yes Pain Scale: 0-10 Numeric Is Patient Pain Free? Yes Yes - Nurse 3 - General Ulcer D/C NN Start: 09/20/24 10:28 Freq: Status: Active Protocol: Activity Type Activity Date Activity User E-sign Co-sign Detail Recorded Client Recorded Date Recorded By Document 09/20/24 11:03 DL [id number] 09/20/24 11:05 DL Document 09/27/24 11:11 [facility] [id number] 09/27/24 11:12 [facility] 09/20/24 09/27/24 11:03 11:11 Wound Care Center Nurse 3 #1 Right mid back -Ulcer Cleansing Rinsed/ Irrigated with Saline -Foul Odor after Cleansing No -Primary Dressing Applied Fibracol Plus 4x4,Silicone Border Foam 4x4 -Fibracol Plus 4x4 1 -Silicone Border Foam 4x4 1 -Wound Comment(s) Silver nitrate used to per Emerita Singleton CNP Treatment Response Procedure Tolerated Well Pain Scale: 0-10 Numeric Is Patient Pain Free? Yes Yes WC - Visit Discharge Discharge Condition Stable Stable Ambulatory Status Ambulatory Ambulatory,Cane Transportation Private Auto Private Auto Accompanied by friend #1 Right mid back -Ulcer Cleansing Rinsed/ Irrigated with Saline -Foul Odor after Cleansing No -Primary Dressing Applied C Hydrogel, Silicone Border Foam 4x4 -Hydrogel 1 -Silicone Border Foam 4x4 1 Treatment Response Procedure Tolerated Well Assessment/Plan Assessment/Plan (1) Decubitus ulcer of back: CODE(S): L89.109 - Pressure ulcer of unspecified part of back, unspecified stage PLAN: Plan Patient evaluated at the wound healing center. Wound care -Stop Fibrocol and start collagen hydrogel covered with Mepilex/silicone border dressing daily after washing ulcer and concepcion wound with soap and water. She had been having the dressing changed every other day due to not having someone who could change it daily. She would benefit from an advanced wound healing product such as Epifix to help expedite the healing process. F/u in 1 week in clinic to check the progress. Call or come in sooner if develop any concerns.
== END 2024-10-01 23:59 | disposition home or self-care (01) ==
LOC: WC 10:00
PROVIDERS: PCP Family Medicine; Referring Provider Nurse Practitioner; Visit Provider Surgery Plastic and Reconstructive Surgery
DX: L89.119 Pressure ulcer of right upper back, unspecified stage (principal); Z79.82 Long term (current) use of aspirin; Z79.84 Long term (current) use of oral hypoglycemic drugs; Z79.899 Other long term (current) drug therapy
CPT/HCPCS: 11042

== ENCOUNTER 2024-10-18 10:30 | Outpatient (RCR) | payer MEDICARE, OTHER, SELFPAY ==
[2024-10-02 01:54] VITALS: BP 146/81; PULSE 87; RESP 18; TEMP 35.3
[2024-10-07 14:54] VITALS: BP 140/89; PULSE 93; RESP 18; TEMP 36.4
--- NOTE | 2024-10-07 17:26 | PCM.WC.PN ---
History of Present Illness Date of Service: 10/07/24 Chief Complaint: Open wound mid-upper back History of Wound: Jojo Gamboa is a very pleasant 74 y/o female who returns to the wound center today for management of her upper back wound, I am seeing her as a courtesy visit. She has been following with Emerita Singleton and Dr. Dukes for this. She tells me this initially was a cyst which ruptured then devolved into this open wound. She states at one time the wound was healed to the size of a pencil eraser but with significant undermining so recently it was unroofed and enlarged to allow for better wound care and ultimately better healing. Over this last week she has been applying collagen hydrogel as directed, she and her sister both feel it is improving. Objective Data Objective Data Vital Signs: Vital Signs Temp Pulse Resp BP 97.5 F L 93 18 140/89 H 10/07/24 14:54 10/07/24 14:54 10/07/24 14:54 10/07/24 14:54 Charges/Coding Procedures Integumentary 111xxx-113xx: 70891 Kacy subq tissue 20 sq cm/< Physical Exam Const alert and oriented x3 HEENT normocephalic Resp normal respiratory effort Effort and Inspection: able to speak in complete sentences Skin Skin Narrative: 1.7 x 1.3 x 0.3 cm wound with no significant undermining/tunneling, granulation tissue at the base with moderate associated slough. No surrounding erythema, focal edema/fluctuance/induration, foul odor, purulent drainage. Psych affect normal Appearance: grossly normal Speech: normal speech Debridement Note Debridement Note Wound debrided: Mid upper back Laterality: Not Applicable Type of Debridement: Excisional debridement Anesthesia Used: 4% Lidocaine Solution Depth: Down to and including healthy tissue and in the subcutaneous layer Percentage of wound debrided: 100 Instrument Used: 5mm curette Tissue Removed: slough Severity: Fat Layer Exposed Amount of bleeding with debridement: Mild Bleeding Controlled with: Compression and gauze Patient tolerated procedure: Patient tolerated procedure well Post-Debridement Measurements and Additional Note: Post-Debridement Measurements/Treatment NAILA - Nurse 1 - General Ulcer Assessment Start: 10/07/24 14:54 Freq: Status: Active Protocol: INDIO Activity Type Activity Date Activity User E-sign Co-sign Detail Recorded Client Recorded Date Recorded By Document 10/07/24 14:54 DL [id number] 10/07/24 15:00 DL 10/07/24 14:54 WC - Today's Visit Information Type of service Follow-up Visit (Physician/HOSE SEAMER ) Arrival Mode Ambulatory Transfer Assistance None Patient Identification Verified (Name & Yes ) Patient Requires Transmission-Based No Precautions Vital Signs Temperature (97.8 F-99.1 F) 97.5 F L Temperature Source Temporal Pulse Rate (60-100) 93 Pulse Location Monitor Respiratory Rate (12-18) 18 Respiratory rate source Observation Blood Pressure (90/60-120/80) 140/89 H Blood Pressure Mean (mm Hg) 106 Source Monitor History Since Last Visit- (Skip if this is Patient's initial visit) Have you changed medications since your No last visit? Any new allergies or adverse reactions No Had a fall/change in ADL's that may No increase risk of falls Signs or symptoms of abuse and/or No neglect since last visit Have you been in the hospital since your No last visit? Has dressing in place as prescribed Yes Has compression in place as prescribed N/A Has offloadiing in place as prescribed N/A Experienced any changes in pain level or No management Pain Scale: 0-10 Numeric Is Patient Pain Free? Yes - Nurse 1 - General Ulcer Measurement Start: 10/07/24 14:54 Freq: Status: Active Protocol: Activity Type Activity Date Activity User E-sign Co-sign Detail Recorded Client Recorded Date Recorded By Document 10/07/24 14:54 DL [id number] 10/07/24 15:00 DL 10/07/24 14:54 Wound Center Nurse 1 #1 Right mid back -Current Size (cm) - Length 1.6 -Current Size (cm) - Width 1.1 -Current Size (cm) - Depth 0.1 -Total Square Cm 1.76 -Exudate Amt Medium -Exudate Type Serosanguineous -Wound Margin Distinct, Outline Attached -Granulation Amt None Present (0 %) -Necrosis Amt Large (67-100%) -Necrotic Tissue Type Adherent Slough -Structure Exposed N/A -Texture (Concepcion-wound Skin Appearance) Scarring -Moisture (Concepcion-wound Skin Appearance) No Abnormality -Color (Concepcion-wound Skin Appearance) No Abnormality -Temperature (Concepcion-wound Skin No Abnormality Appearance) (Pt Warm) -Tenderness on Palpation (Concepcion-wound No Skin Appearance) -Ulcer Cleansing Soap and Water -Foul Odor after Cleansing No -Anesthetic Used 5% Lidocaine Gel - Nurse 2 - General Ulcer CM Notes Start: 10/07/24 14:54 Freq: Status: Active Protocol: Activity Type Activity Date Activity User E-sign Co-sign Detail Recorded Client Recorded Date Recorded By Document 10/07/24 15:37 [id number] 10/07/24 15:42 10/07/24 15:37 Wound Center Nurse 2 -Time 15:37 -Correct Patient Yes -Correct Side, Site, Position Yes -Correct Procedure Yes -Procedure Performed Yes -Type of Procedure Debridement -Clinical Debridement Subcutaneous -Tissue Removed Subcutaneous -Post Debridement (cm) - Length 1.7 -Post Debridement (cm) - Width 1.3 -Post Debridement (cm) - Depth 0.3 -Total Square (Post) (cm) 2.21 -Area of Debridement (cm) - Length 1.7 -Area of Debridement (cm) - Width 1.3 -Total Square (Area) (cm) 2.21 -Tunneling No -Undermining/Tunneling No -Circular Undermining No -Wound/Ulcer Outcome Not Healed -Ulcer Cleansing Rinsed/ Irrigated with Saline -Foul Odor after Cleansing No -Bioengineered Tissue No -Bleeding Controlled with Pressure -Treatment Response Procedure Tolerated Well -Debridement - Subq, 1st 20sq cm Yes Pain Scale: 0-10 Numeric Is Patient Pain Free? Yes - Nurse 3 - General Ulcer D/C NN Start: 10/07/24 14:54 Freq: Status: Active Protocol: Activity Type Activity Date Activity User E-sign Co-sign Detail Recorded Client Recorded Date Recorded By Document 10/07/24 15:50 [facility] [id number] 10/07/24 15:51 [facility] 10/07/24 15:50 Wound Care Center Nurse 3 #1 Right mid back -Ulcer Cleansing Rinsed/ Irrigated with Saline -Foul Odor after Cleansing No -Primary Dressing Applied Silicone Border Foam 4x4 -Other Dressing hydrogel -Silicone Border Foam 4x4 1 Treatment Response Procedure Tolerated Well Pain Scale: 0-10 Numeric Is Patient Pain Free? Yes WC - Visit Discharge Discharge Condition Stable Ambulatory Status Ambulatory,Cane Transportation Private Auto Accompanied by friend Assessment/Plan Assessment/Plan (1) Decubitus ulcer of back: CODE(S): L89.109 - Pressure ulcer of unspecified part of back, unspecified stage PLAN: Plan Patient tolerated debridement very well. Continue collagen hydrogel to the wound bed followed by foam border dressing. Change every other day or more often as needed to keep clean and dry. EpiFix insurance auth is still pending as far as I am aware. She will return to the office next week to see Dr. Dukes.
[2024-10-18 10:30] VITALS: BP 158/89; PULSE 64; RESP 16; TEMP 35.7
--- NOTE | 2024-10-18 16:26 | PN.PCM_ITS ---
History of Present Illness Date of Service: 10/18/24 Chief Complaint: Open wound mid-upper back History of Wound: Jojo Gamboa is a very pleasant 74 y/o female who returns to the wound center today for management of her upper back wound, I am seeing her as a courtesy visit. She has been following with Emerita Singleton and Dr. Dukes for this. She tells me this initially was a cyst which ruptured then devolved into this open wound. She states at one time the wound was healed to the size of a pencil eraser but with significant undermining so recently it was unroofed and enlarged to allow for better wound care and ultimately better healing. Over this last week she has been applying collagen hydrogel as directed, she and her sister both feel it is improving. Subjective Subjective 28 Jun 2024: Doing well overall with dressing changes, her friend has been helping her. No fevers or chills. 12 Jul 2024: Unable to pack wound well. Reports trouble with packing. 19 Jul 2024: Doing well with wound care. Discussed pathology from biopsy (negative for malignancy). 26 Jul 2024: Doing well. Packing going well. Current encounter, 18 October 2024: Doing well overall. Endorses good dressing changes and smaller wound. Objective Data Objective Data Vital Signs: Vital Signs Temp Pulse Resp BP O2 Del Method 96.2 F L 64 16 158/89 H Room Air 10/18/24 10:30 10/18/24 10:30 10/18/24 10:30 10/18/24 10:30 10/18/24 10:30 Oxygen Delivery Method Room Air Charges/Coding Procedures Integumentary 111xxx-113xx: 37504 Kacy subq tissue 20 sq cm/< Physical Exam Const alert and oriented x3 HEENT normocephalic Resp normal respiratory effort Effort and Inspection: able to speak in complete sentences Skin Skin Narrative: 1 x 1 cm0.3 cm wound with no significant undermining/tunneling, granulation tissue at the base with moderate associated slough. No surrounding erythema, focal edema/fluctuance/induration, foul odor, purulent drainage. Psych affect normal Appearance: grossly normal Speech: normal speech Debridement Note Debridement Note Wound debrided: Upper back Laterality: Right Wound Grade/Stage: Stage III Type of Debridement: Excisional debridement Anesthesia Used: 4% Lidocaine Solution Depth: in the subcutaneous layer Percentage of wound debrided: 100 Instrument Used: 7mm curette Tissue Removed: Necrotic fibrinous exudate from the fatty layer Severity: Fat Layer Exposed Amount of bleeding with debridement: Mild Bleeding Controlled with: Compression and gauze Patient tolerated procedure: Patient tolerated procedure well Post-Debridement Measurements and Additional Note: Post-Debridement Measurements/Treatment NAILA - Nurse 1 - General Ulcer Assessment Start: 10/07/24 14:54 Freq: Status: Active Protocol: INDIO Activity Type Activity Date Activity User E-sign Co-sign Detail Recorded Client Recorded Date Recorded By Document 10/07/24 14:54 DL [id number] 10/07/24 15:00 DL Document 10/18/24 10:30 BMF [id number] 10/18/24 10:37 BMF 10/07/24 10/18/24 14:54 10:30 WC - Today's Visit Information Type of service Follow-up Visit Follow-up Visit (Physician/ADMINISTRATIVE PERSONAL ASSISTANT (Physician/ADMINISTRATIVE PERSONAL ASSISTANT ) ) Arrival Mode Ambulatory Ambulatory Transfer Assistance None None Accompanied by friend Patient Identification Verified (Name & Yes Yes ) Patient Requires Transmission-Based No No Precautions Vital Signs Temperature (97.8 F-99.1 F) 97.5 F L 96.2 F L Temperature Source Temporal Temporal Pulse Rate (60-100) 93 64 Pulse Location Monitor Monitor Respiratory Rate (12-18) 18 16 Respiratory rate source Observation Observation Oxygen Delivery Method Room Air Blood Pressure (90/60-120/80) 140/89 H 158/89 H Blood Pressure Mean (mm Hg) 106 112 Source Monitor Monitor Position Sitting Blood Pressure Location Left Arm History Since Last Visit- (Skip if this is Patient's initial visit) Have you changed medications since your No No last visit? Any new allergies or adverse reactions No No Had a fall/change in ADL's that may No No increase risk of falls Signs or symptoms of abuse and/or No No neglect since last visit Have you been in the hospital since your No No last visit? Has dressing in place as prescribed Yes Yes Has compression in place as prescribed N/A N/A Has offloadiing in place as prescribed N/A N/A Experienced any changes in pain level or No No management Left Footwear Regular Shoe Right Footwear Regular Shoe Pain Scale: 0-10 Numeric Is Patient Pain Free? Yes Yes NAILA - Nurse 1 - General Ulcer Measurement Start: 10/07/24 14:54 Freq: Status: Active Protocol: Activity Type Activity Date Activity User E-sign Co-sign Detail Recorded Client Recorded Date Recorded By Document 10/07/24 14:54 DL [id number] 10/07/24 15:00 DL Document 10/18/24 10:30 BM [id number] 10/18/24 10:37 BMF 10/07/24 10/18/24 14:54 10:30 Wound Center Nurse 1 #1 Right mid back -Combined with other wound No -Current Size (cm) - Length 1.6 0.6 -Current Size (cm) - Width 1.1 1 -Current Size (cm) - Depth 0.1 0.1 -Total Square Cm 1.76 0.6 -Date of Last Picture (Recall this 10/18/24 field) -Photo Taken Yes -Epithelialization Medium 34-66% -Tunneling No -Undermining/Tunneling No -Circular Undermining No -Exudate Amt Medium Medium -Exudate Type Serosanguineous Serosanguineous -Wound Margin Distinct, Flat & Intact Outline Attached -Granulation Amt None Present (0 Medium (34-66%) %) -Granulation Quality Red -Slough/Fibrin Yes -Necrosis Amt Large (67-100%) Medium (34-66%) -Necrotic Tissue Type Adherent Slough Adherent Slough -Structure Exposed N/A -Texture (Concepcion-wound Skin Appearance) Scarring Assessed, Scarring -Moisture (Concepcion-wound Skin Appearance) No Abnormality Assessed -Color (Concepcion-wound Skin Appearance) No Abnormality Assessed -Temperature (Concepcion-wound Skin No Abnormality No Abnormality Appearance) (Pt Warm) (Pt Warm) -Tenderness on Palpation (Concepcion-wound No No Skin Appearance) -Ulcer Cleansing Soap and Water Rinsed/ Irrigated with Saline -Foul Odor after Cleansing No No -Anesthetic Used 5% Lidocaine 5% Lidocaine Gel Gel WC - Nurse 2 - General Ulcer CM Notes Start: 10/07/24 14:54 Freq: Status: Active Protocol: Activity Type Activity Date Activity User E-sign Co-sign Detail Recorded Client Recorded Date Recorded By Document 10/07/24 15:37 GM [id number] 10/07/24 15:42 GM Document 10/18/24 11:17 JF [id number] 10/18/24 11:18 JF 10/07/24 10/18/24 15:37 11:17 Wound Center Nurse 2 #1 Right mid back -Time 15:37 11:17 -Correct Patient Yes Yes -Correct Side, Site, Position Yes Yes -Correct Procedure Yes Yes -Procedure Performed Yes Yes -Type of Procedure Debridement Debridement -Clinical Debridement Subcutaneous Subcutaneous -Tissue Removed Subcutaneous Subcutaneous -Post Debridement (cm) - Length 1.7 1 -Post Debridement (cm) - Width 1.3 1 -Post Debridement (cm) - Depth 0.3 0.1 -Total Square (Post) (cm) 2.21 1 -Area of Debridement (cm) - Length 1.7 1 -Area of Debridement (cm) - Width 1.3 1 -Total Square (Area) (cm) 2.21 1 -Tunneling No No -Undermining/Tunneling No No -Circular Undermining No No -Wound/Ulcer Outcome Not Healed Not Healed -Ulcer Cleansing Rinsed/ Rinsed/ Irrigated with Irrigated with Saline Saline -Foul Odor after Cleansing No No -Bioengineered Tissue No No -Bleeding Controlled with Pressure Pressure -Treatment Response Procedure Procedure Tolerated Well Tolerated Well -Offloading No -Debridement - Subq, 1st 20sq cm Yes Yes Pain Scale: 0-10 Numeric Is Patient Pain Free? Yes Yes - Nurse 3 - General Ulcer D/C NN Start: 10/07/24 14:54 Freq: Status: Active Protocol: Activity Type Activity Date Activity User E-sign Co-sign Detail Recorded Client Recorded Date Recorded By Document 10/07/24 15:50 [facility] [id number] 10/07/24 15:51 [facility] Document 10/18/24 11:18 [id number] 10/18/24 11:20 10/07/24 10/18/24 15:50 11:18 Wound Care Center Nurse 3 #1 Right mid back -Ulcer Cleansing Rinsed/ Rinsed/ Irrigated with Irrigated with Saline Saline -Foul Odor after Cleansing No No -Primary Dressing Applied Silicone Border Foam 4x4 -Other Dressing hydrogel hydrogel -Primary Dressing Covered/Secured with Dry Gauze, Secured with Tape -Silicone Border Foam 4x4 1 Treatment Response Procedure Tolerated Well Pain Scale: 0-10 Numeric Is Patient Pain Free? Yes Yes - Visit Discharge Discharge Condition Stable Stable Ambulatory Status Ambulatory,Cane Ambulatory,Cane Transportation Private Auto Private Auto Accompanied by friend Medication Reconcilliation completed & Yes provided to patient/care provider Clinical Summary of Care Provided Yes Assessment/Plan Assessment/Plan (1) Decubitus ulcer of back: CODE(S): L89.109 - Pressure ulcer of unspecified part of back, unspecified stage PLAN: Plan Patient tolerated debridement very well. Continue collagen hydrogel to the wound bed followed by foam border dressing. Change every other day or more often as needed to keep clean and dry. We will defer EpiFix at this time as the wound is healing well without Follow-up in 2 weeks with me
== END 2024-11-01 23:59 | disposition home or self-care (01) ==
LOC: WC 10:30
PROVIDERS: PCP Family Medicine; Referring Provider Nurse Practitioner; Visit Provider Surgery Plastic and Reconstructive Surgery
DX: L98.422 Non-pressure chronic ulcer of back with fat layer exposed (principal); Z79.82 Long term (current) use of aspirin; Z79.84 Long term (current) use of oral hypoglycemic drugs; Z79.899 Other long term (current) drug therapy
CPT/HCPCS: 11042

== ENCOUNTER 2024-11-08 08:31 | Outpatient (RCR) | payer MEDICARE, OTHER, SELFPAY ==
[2024-11-02 00:25] VITALS: BP 158/89; PULSE 64; RESP 16; TEMP 35.7
[2024-11-08 10:18] VITALS: BP 147/93; PULSE 97; RESP 18; TEMP 36
--- NOTE | 2024-11-08 10:42 | PCM.WC.PN ---
History of Present Illness Date of Service: 11/08/24 Chief Complaint: Open wound mid-upper back History of Wound: Jojo Gamboa is a very pleasant 74 y/o female who returns to the wound center today for management of her upper back wound, I am seeing her as a courtesy visit. She has been following with Emerita Singleton and Dr. Dukes for this. She tells me this initially was a cyst which ruptured then devolved into this open wound. She states at one time the wound was healed to the size of a pencil eraser but with significant undermining so recently it was unroofed and enlarged to allow for better wound care and ultimately better healing. Over this last week she has been applying collagen hydrogel as directed, she and her sister both feel it is improving. Subjective Subjective 28 Jun 2024: Doing well overall with dressing changes, her friend has been helping her. No fevers or chills. 12 Jul 2024: Unable to pack wound well. Reports trouble with packing. 19 Jul 2024: Doing well with wound care. Discussed pathology from biopsy (negative for malignancy). 26 Jul 2024: Doing well. Packing going well. 18 October 2024: Doing well overall. Endorses good dressing changes and smaller wound. Current encounter, 08 November 2024: Doing well. Believes that the wound has healed. Objective Data Objective Data Vital Signs: Vital Signs Temp Pulse Resp BP O2 Del Method 96.8 F L 97 18 147/93 H Room Air 11/08/24 10:18 11/08/24 10:18 11/08/24 10:18 11/08/24 10:18 11/08/24 10:18 Oxygen Delivery Method Room Air Charges/Coding Visit Charges Office Visits / Consults: 33701 OV L3 Est 20min Physical Exam Const alert and oriented x3 HEENT normocephalic Resp normal respiratory effort Effort and Inspection: able to speak in complete sentences Skin Skin Narrative: Healed. 2 x 2 cm area of tight scar, no surrounding induration or signs of fluid collections. Completely re-epithelialized. Psych affect normal Appearance: grossly normal Speech: normal speech Debridement Note Debridement Note No debridement was completed: No debridement was completed today Post-Debridement Measurements and Additional Note: Post-Debridement Measurements/Treatment WC - Nurse 1 - General Ulcer Assessment Start: 11/08/24 10:18 Freq: Status: Active Protocol: NAILA.LOWEXT Activity Type Activity Date Activity User E-sign Co-sign Detail Recorded Client Recorded Date Recorded By Document 11/08/24 10:18 SEDRICK [id number] 11/08/24 10:22 KW 11/08/24 10:18 - Today's Visit Information Type of service Follow-up Visit (Physician/DIE DESIGNER APPRENTICE ) Arrival Mode Ambulatory Accompanied by friend Patient Identification Verified (Name & Yes ) Vital Signs Temperature (97.8 F-99.1 F) 96.8 F L Temperature Source Temporal Pulse Rate (60-100) 97 Pulse Location Monitor Respiratory Rate (12-18) 18 Respiratory rate source Observation Oxygen Delivery Method Room Air Blood Pressure (90/60-120/80) 147/93 H Blood Pressure Mean (mm Hg) 111 Source Monitor Position Sitting Blood Pressure Location Left Arm History Since Last Visit- (Skip if this is Patient's initial visit) Have you changed medications since your No last visit? Any new allergies or adverse reactions No Had a fall/change in ADL's that may No increase risk of falls Signs or symptoms of abuse and/or No neglect since last visit Have you been in the hospital since your No last visit? Has dressing in place as prescribed Yes Has compression in place as prescribed N/A Has offloadiing in place as prescribed N/A Experienced any changes in pain level or No management Left Footwear Regular Shoe Right Footwear Regular Shoe Pain Scale: 0-10 Numeric Is Patient Pain Free? Yes - Nurse 1 - General Ulcer Measurement Start: 11/08/24 10:18 Freq: Status: Active Protocol: Activity Type Activity Date Activity User E-sign Co-sign Detail Recorded Client Recorded Date Recorded By Document 11/08/24 10:18 SEDRICK [id number] 11/08/24 10:22 11/08/24 10:18 Wound Center Nurse 1 #1 Right mid back -Current Size (cm) - Length 0.1 -Current Size (cm) - Width 0.1 -Current Size (cm) - Depth 0 -Total Square Cm 0.01 -Date of Last Picture (Recall this 11/08/24 field) -Exudate Amt None Present -Texture (Concepcion-wound Skin Appearance) Assessed -Moisture (Concepcion-wound Skin Appearance) Assessed -Color (Concepcion-wound Skin Appearance) Assessed -Temperature (Concepcion-wound Skin No Abnormality Appearance) (Pt Warm) -Tenderness on Palpation (Concepcion-wound No Skin Appearance) -Ulcer Cleansing Rinsed/ Irrigated with Saline -Foul Odor after Cleansing No -Wound Comment(s) scabbed - Nurse 2 - General Ulcer CM Notes Start: 11/08/24 10:18 Freq: Status: Active Protocol: Activity Type Activity Date Activity User E-sign Co-sign Detail Recorded Client Recorded Date Recorded By Document 11/08/24 10:36 DS [id number] 11/08/24 10:37 DS 11/08/24 10:36 Wound Center Nurse 2 -Time 10:36 -Correct Patient Yes -Procedure Performed No -Wound/Ulcer Outcome Healed- Epithelialized Pain Scale: 0-10 Numeric Is Patient Pain Free? Yes - Nurse 3 - General Ulcer D/C NN Start: 11/08/24 10:18 Freq: Status: Active Protocol: Activity Type Activity Date Activity User E-sign Co-sign Detail Recorded Client Recorded Date Recorded By Document 11/08/24 10:39 DS [id number] 11/08/24 10:39 DS 11/08/24 10:39 Wound Care Center Nurse 3 #1 Right mid back -Wound Comment(s) lotion applied to scar Pain Scale: 0-10 Numeric Is Patient Pain Free? Yes WC - Visit Discharge Discharge Condition Stable Ambulatory Status Ambulatory Transportation Private Auto Assessment/Plan Assessment/Plan (1) Decubitus ulcer of back: CODE(S): L89.109 - Pressure ulcer of unspecified part of back, unspecified stage PLAN: Plan Healed. Aquafor daily to the new, dry skin. F/u in 2 months for scar check in the office
--- NOTE | 2024-11-09 10:43 | WC ---
PHOTO 11/08/24 MID BACK
== END 2024-12-01 23:59 | disposition home or self-care (01) ==
LOC: WC 08:31
PROVIDERS: PCP Family Medicine; Referring Provider Nurse Practitioner; Visit Provider Surgery Plastic and Reconstructive Surgery
DX: Z09 Encounter for follow-up examination after completed treatment for conditions other than malignant neoplasm (principal)
CPT/HCPCS: 99213; G0463